=== PATIENT | male | born 1940 | race Caucasian/White ===

== ENCOUNTER 2017-03-29 10:03 | Observation (INO) | payer OTHER ==
[~2017-03-29] VITALS: Ht 182.9 cm; Wt 89.2 kg
[~2017-03-29 10:03] MED LIST: ASPEC81 PO; ATEN-173 PO; ATOR-24 PO; CHOLTAB3 PO; CLINDAMYCIN IV 600 MG in DEXTROSE 5% ADD-VANTAGE 50ML 50 ML IV SCH; CLTP PO; CMD5 PO; LSN25 PO; OMEG10007 PO; SYN50 PO; TRIA37.5 PO
[2017-03-29] MEDS ORDERED: BUPIVACAINE 0.5 % 5 MG/1 ML MPF 30ML VIAL ONE (10:05)
[2017-03-29] MEDS ORDERED: BACITRACIN 50000 UNIT VIAL ONE (10:05)
[2017-03-29] MEDS ORDERED: LIDOCAINE HCL 1% 20 ML VIAL ONE (10:05)
--- NOTE | 2017-03-29 10:22 | History & Physical Bridge Note ---
H&P Re-Evaluation Bridge Note: I have examined the patient, reviewed the History & Physical and in the interval since the performance of the History & Physical I have noted the following changes of clinical significance: HNP performed. Pt with TBS will get ppm.
--- NOTE | 2017-03-29 10:23 | Procedure Note ---
Pre-Mod Sedation Assessment General Date of Moderate Sedation: Mar 29, 2017. Review Cardiovascular: regular rate, rhythm, no edema, + bradycardia Abdomen: soft Lungs: lungs clear Airway Class: II Pre-Sedation Airway Assessment Oral Cavity: WNL Able to Visualize Vocal Cords: No Short Thick Neck: No Hx of Sleep Apnea: No Smoking Status: Former Smoker Mallampati Classification: Class II ASA Classification: Class II Procedure Planning Contraindications-for Mod Sed: None Yes Notes The planned sedation has been discussed with the patient and consent obtained. I have identified the patient, determined the appropriateness of sedation and have assessed the patient immediately prior to the procedure. All medicine(s) and interventions are by my order.
[2017-03-29] MEDS ORDERED: METO25TA3 PO (10:25)
[2017-03-29 10:30] LABS: MEAN CELL VOLUME 98.7 fL (80-100); MEAN CORPUSCULAR HEMOGLOBIN 34.2 pg (25-34); MEAN PLATELET VOLUME 10.3 fL (7.4-10.4); PLATELET COUNT 229 K/uL (130-400); RED BLOOD COUNT 4.76 M/uL (4.7-6.1); WHITE BLOOD COUNT 7.27 K/uL (4.8-10.8)
[2017-03-29 10:38] LABS: INR 1.2 (0.9-1.1); PROTHROMBIN TIME (PATIENT) 13.4 SECONDS (9.0-12.0)
[2017-03-29 10:42] VITALS: BP 163/104; PULSE 82; TEMP 36.3; O2SAT 97; BMI 26.0
--- NOTE | 2017-03-29 10:47 | History and Physical ---
History & Physical Date Mar 29, 2017. Chief Complaint 5 second pause History of Present Illness The patient is a 76 year old male with complaints of fatigue; he follows with Dr. Byrd in my office and recently wore a monitoring engineer which revealed 5 second pause in SR; he has TBS and was recommend ppm fortunately denies any syncope Past Medical/Surgical History paf on coumadin rbbb lafb tbs dvt and pe in past htn hypothyroidism Additional History Hepatic Disease: No Endocrine Disorder: Yes Kidney Disease: No Hypertension: Yes Heart Disease: Yes Bleeding Tendencies: No Infectious Diseases: No Allergies Coded Allergies: Penicillins (Verified Allergy, Unknown, "happened as a child, not sure of reaction", 03/29/17) Uncoded Allergies: PEROXID (Allergy, Severe, SEVERE RASH, 03/29/17) Home Medications Scheduled Aspirin Enteric Coated (Ecotrin Or Generic *), 81 MG PO QPM Atorvastatin (Lipitor), 40 MG PO QPM Calcium/Vitamin D (Caltrate 600 Plus *), 1 TAB PO QPM Ergocalciferol (Vitamin D), 400 INTER.UNIT PO QPM Levothyroxine (Synthroid *), 0.05 MG PO DAILY Lisinopril (Zestril *), 2.5 MG PO DAILY Metoprolol Succinate (Toprol Xl), 12.5 MG PO DAILY Warfarin Sod (Coumadin *), 5 MG PO WK Warfarin Sod (Coumadin *), 7.5 MG PO 6XWK Physical Examination Skin: warm/dry Eyes: EOMI, sclerae normal Head: normocephalic, atraumatic Neck: supple Respiratory/Chest: lungs clear, normal breath sounds Cardiovascular: regular rate, rhythm, no edema, no murmur Abdomen / GI: normal bowel sounds, non tender Back: normal inspection Extremities: + pertinent finding (trace to +1 edema) Neurologic/Psych: alert, oriented x 3 Diagnosis 1. TBS 2. pAF on coumadin 3. RBBB 4. LAFB 5. HTN 6. h/o DVT and PE 7. Hypothyroidism ASA Classification: ASA Class II Plan of Treatment Recommend dual chamber permanent pacemaker discussed risks and benefits with the patient after procedure would increase BB dose and consider anti-arrhythmic therapy if pt has more AF with RVR despite BB on ppm checks as outpatient
[2017-03-29 10:51] LABS: BLOOD UREA NITROGEN 21 mg/dl (7-18); BUN/CREATININE RATIO 16.1 (10-20); CALCIUM 9.2 mg/dl (8.5-10.1); CARBON DIOXIDE 29 mmol/L (21-32); CHLORIDE 106 mmol/L (98-107); GLUCOSE 121 mg/dl (70-99); POTASSIUM 4.4 mmol/L (3.5-5.1); SODIUM 138 mmol/L (136-145)
[2017-03-29] MEDS ORDERED: MIDAZOLAM HCL 5 MG/ML 1 ML VIAL ONE (11:02)
[2017-03-29] MEDS ORDERED: FENTANYL CITRATE INJ 50 MCG/1 ML 2 ML VIAL ONE (11:02)
[2017-03-29 11:07] LABS: MEAN CORPUSCULAR HGB CONC 34.7 g/dl (32-36)
[2017-03-29] MEDS ORDERED: ACETAMINOPHEN/CODEINE 300/30MG TAB PO PRN (12:45)
[2017-03-29] MEDS ORDERED: ACETAMINOPHEN 325 MG TAB PO PRN (12:45)
--- NOTE | 2017-03-29 12:49 | Procedure Note ---
Post-Mod Sedation Assessment General Date of Moderate Sedation Mar 29, 2017. Vital Signs: Vital Signs Past 12 Hours Date Time Temp Pulse Resp B/P (MAP) Pulse Ox O2 Delivery O2 Flow Rate FiO2 03/29/17 12:40 100 16 121/89 (100) 96 Room Air 03/29/17 12:35 100 16 125/90 (102) 96 Room Air 03/29/17 12:32 103 16 118/88 (98) 96 Room Air 03/29/17 10:42 36.3 82 18 163/104 (123) 97 Room Air Review - Discharge Criteria Vital Signs Stable: Yes Alert/Oriented/Conversant: Yes Returned to Baseline Mental St: Yes Nausea Absent/Minimal: Yes Pain/Discomfort/Absent/Minimal: Yes Normal/Baseline Respirations: Yes Active Bleeding?: No Pt Received D/C Instructions: N/A Prescriptions Given: None Specific Proced. D/C Criteria Distal Pulses Present (Cardiac: N/A Groin site assessed-Card Cath: N/A Voided Prior To Discharge: N/A Discharged Patients Adult Escort/Transportation: N/A
--- NOTE | 2017-03-29 12:50 | [facility] Post Operative Brief Note ---
Immediate Operative Summary Operative Date Mar 29, 2017. Pre-Operative Diagnosis tachy-don syndrome Post-Operative Diagnosis same Procedure(s) Performed dual chamber rate responsive pacemaker with peripheral venogram Surgeon wilver medina Stitching Department Supervisor Surgeon(s) none Estimated Blood Loss <10cc Findings none Fluids (cc crystalloids) 250cc Specimens none Drains none Anesthesia 4mg versed and 100mcg fentanyl Complication(s) None Disposition PCU
[2017-03-29] MEDS ORDERED: TPRSR25 PO (12:55)
--- NOTE | 2017-03-29 12:57 | Discharge Instructions ---
Discharge Instructions Date of Service Mar 29, 2017. 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 Instructions / Follow-Up Instructions / Follow-Up ACTIVITY RECOMMENDATIONS: * Do not raise affected arm over head for 4 weeks. SPECIAL CARE INSTRUCTIONS: * If bleeding occurs, apply direct pressure to area for 5 minutes. * Call your doctor if you have severe pain, fever, drainage or bleeding at site. * Keep dry for 48 hours. * Keep any scheduled doctor's appointment. * Implant Card - hand held device with website information given. SKIN IRRITATION: * You may experience some redness and/or swelling in the area where radiation was administered. If any skin irritation occurs, please contact your family physician. FOLLOW UP VISIT: Keep any scheduled doctor appointments. Current Hospital Diet Patient's current hospital diet: AHA Diet (Heart Healthy) Discharge Diet Recommended Diet: AHA Diet (Heart Healthy) Procedures Procedures Performed: dual chamber rate responsive pacemaker with peripheral venogram Pending Studies Studies pending at discharge: no Medical Emergencies . Who to Call and When: Medical Emergencies: If at any time you feel your situation is an emergency, please call 911 immediately. . Non-Emergent Contact Non-Emergency issues call your: Strategy Consultant . . "Provider Documentation" section prepared by Michelle Crowell. . VTE Core Measure Inpt VTE Proph given/why not?: Warfarin (Coumadin)
[2017-03-29 13:00] VITALS: BP 129/81; PULSE 88; TEMP 37; O2SAT 96; Ht 182.9 cm; Wt 89.2 kg
--- NOTE | 2017-03-29 13:01 | Discharge Summary ---
Discharge Summary Date of Service Mar 29, 2017. Discharge Summary Admission Date: Discharge Date: Mar 30, 2017 Discharge Disposition: Home Principal Diagnosis: tachy-don syndrome Secondary Diagnoses/Problems: pAF on coumadin RBBB LAFB HTN Hypothyroidism Procedures: dual chamber rate responsive permanent pacemaker under fluoroscopic guidance with peripheral venogram Medication Reconciliation New Medications: Metoprolol Succinate (Metoprolol Succinate ER) 25 Mg Tabcr 25 MG PO DAILY for 30 Days, #30 Continued Medications: Aspirin Enteric Coated (Ecotrin Or Generic *) 81 Mg Ectab 81 MG PO QPM, 0 Refills Atorvastatin (Lipitor) 40 Mg Tab 40 MG PO QPM, 0 Refills Calcium/Vitamin D (Caltrate 600 Plus *) Tab 1 TAB PO QPM, 0 Refills Ergocalciferol (Vitamin D) 400 Inter.unit Tab 400 INTER.UNIT PO QPM, 0 Refills Levothyroxine (Synthroid *) 0.05 Mg Tab 0.05 MG PO DAILY, 0 Refills Lisinopril (Zestril *) 2.5 Mg Tab 2.5 MG PO DAILY, 0 Refills Warfarin Sod (Coumadin *) 5 Mg Tab 5 MG PO WK, 0 Refills ON TUESDAY Warfarin Sod (Coumadin *) 5 Mg Tab 7.5 MG PO 6XWK, 0 Refills SAT,SUN,MON,,TH, FRI Discontinued Medications: Metoprolol Succinate (Toprol Xl) 25 Mg Tabcr 12.5 MG PO DAILY for 30 Days, #15 TAB 5 Refills Admission Information Physical Exam (per Admitting): aaox3, NAD NC/AT, EOMI Supple, No JVD Irregular, irregular S1/S2, no murmur CTA b/l w/r/r soft, NT/ND No edema b/l no focal deficit skin intact Hospital Course Pt admitted for elective permanent pacemaker due to tachy-don syndrome. Pt underwent procedure without any complications. Monitored overnight; his toprol was increased due to AF with RVR. Discharged home next morning in stable condition. Total time spent on discharge = This includes examination of the patient, discharge planning, medication reconciliation, and communication with other providers. Discharge Instructions ACTIVITY RECOMMENDATIONS: * Do not raise affected arm over head for 4 weeks. SPECIAL CARE INSTRUCTIONS: * If bleeding occurs, apply direct pressure to area for 5 minutes. * Call your doctor if you have severe pain, fever, drainage or bleeding at site. * Keep dry 48 hours. * Keep any scheduled doctor's appointment. * Implant Card - hand held device with website information given. SKIN IRRITATION: * You may experience some redness and/or swelling in the area where radiation was administered. If any skin irritation occurs, please contact your family physician. FOLLOW UP VISIT: Keep any scheduled doctor appointments.
[2017-03-29 13:07] VITALS: BP 136/84; PULSE 96; TEMP 37; O2SAT 96
[2017-03-29] MEDS ORDERED: IV FLUIDS COMPLETED PRN (13:45)
--- NOTE | 2017-03-29 13:52 | OPERATIVE REPORT ---
DATE OF OPERATION: 03/29/2017 PREOPERATIVE DIAGNOSIS: Tachybrady syndrome. POSTOPERATIVE DIAGNOSIS: Same. PROCEDURE: Dual chamber rate responsive permanent pacemaker under fluoroscopic guidance along with peripheral venogram. SURGEON: Dr. Michelle Crowell. ENTERPRISE SYSTEMS ARCHITECT: None. ANESTHESIA: Monitored conscious sedation administered under my supervision by Thanh Olson. Start time 11:35 a.m. End time 12:32. Total of 4 mg of Versed and 100 mcg of fentanyl. INTRAVENOUS FLUIDS: 250 mL. ESTIMATED BLOOD LOSS: Less than 10 mL. COMPLICATIONS: None. CONDITION: Stable. URINE OUTPUT: Not applicable. SPECIMENS: None. FINDINGS: See below. DRAINS: None. INDICATIONS: This is a 76-year-old gentleman who has a past medical history for paroxysmal atrial fibrillation on Coumadin and only a small dose of metoprolol, hypertension, hyperthyroidism, right bundle branch block, and left anterior fascicular block. He recently wore a Zio patch 2-week manager cardiac, which revealed evidence of tachybrady syndrome with a 5-second sinus pause. Unfortunately, he was not symptomatic. Due to the tachybrady syndrome, it was recommended a permanent pacemaker. CONSENT: Consent was obtained prior to the patient going into the electrophysiology lab. The patient was informed of risks, benefits and alternatives to the procedure. Risks include, but not limited to sudden cardiac , cardiac arrhythmias, cerebrovascular accident, myocardial infarction, injury to the blood vessels, chamber of the heart, lungs, bleeding and infection. The patient understood these risks and agreed to go ahead with the procedure as planned. Inform consent was obtained. DESCRIPTION OF THE PROCEDURE: The patient was brought into the electrophysiology lab in a fasting state. He was connected to continuous cardiac monitoring. A timeout was performed to ensure the patient's identity and procedure correctly. The patient received prophylactic antibiotics prior to incision. He was prepped and draped over the left infraclavicular space in normal surgical standard fashion. Moderate conscious sedation was given throughout the procedure for the patient's comfort level under my supervision. [place] precautions were maintained throughout the procedure. A 20 mL of 1% lidocaine/bupivacaine mixture were given in the left deltopectoral. Incision was made in left deltopectoral groove. Blunt dissection was performed down to identify the cephalic vein; however, none could not be identified. A peripheral venogram was performed to identify the axillary vein. A 10 mL of IV contrast diluted in 10 mL of saline followed by 20 mL flush was used. Venous access was obtained through the axillary stick without any complications. The guidewire was inserted without any resistance. An 8-Ghanaian sheath was inserted over the guidewire without any resistance. The dilator was removed and a second guidewire was then inserted through the sheath to allow for retained venous access. The sheath was flushed, dilator reinserted over and then, the sheath was inserted over one of the guidewires without any resistance. The guidewire and dilator were removed. The right ventricle pacing lead was then advanced into the right ventricle and positioned into the right ventricular apex under fluoroscopic guidance. There was adequate pacing and sensing thresholds and no diaphragmatic stimulation. The 8-Ghanaian sheath was peeled away and lead was fixated to the pectoralis muscle using 0 silk suture. A second 8-Ghanaian sheath was inserted over the retained guidewire without any resistance. The guidewire and dilator were removed. The right atrial pacing lead was then advanced into the right atrium and positioned into the right atrial appendage under fluoroscopic guidance. We did use the preformed J curve. The patient was in atrial fibrillation, so no threshold testing could be performed; however, there was adequate sensing and impedance. The sheath was peeled away and lead was fixated to the pectoralis muscle using 0 silk suture. A pacemaker pocket was created over the pectoralis muscle within the pectoralis fascia using blunt dissection. The pocket was flushed with copious amounts of bacitracin saline wash and inspected for hemostasis. The new pulse generator was attached to the leads, making sure that the pins were in appropriate position, passed the set screws and the set screws were all tightened. The pacemaker was then placed in the pocket, making sure that the leads were lying flat beneath the device. A stay stitch using 0 silk suture was used to secure the device to the pectoralis muscle. Maya stat was placed in the pocket since the patient is going back on Coumadin. The incision was closed in a 3-layer fashion using 2-0 Vicryl interrupted suture followed by a 3-0 Vicryl interrupted suture followed by a 4-0 Monocryl running stitch and Dermabond was applied. EQUIPMENT: 1. Pulse generator is a PingTunefinesse Leal [id number], serial #[id number]. 2. Right atrial lead, Medtronic 5076-52 cm, serial #[id number]. 3. Right ventricular lead, Medtronic 5076-58 cm, serial #[id number]. INTRAOPERATIVE TESTIN. Right atrial lead atrial fibrillation wave/atrial flutter wave 4.5 millivolts and impedance 621 ohms. Again, no threshold testing since the patient was in atrial flutter. 2. Right ventricular lead: R-wave 6.3 millivolts, impedance 1229 ohms, and threshold 0.7 volts at 0.7 milliamps. FINAL MEASUREMENTS THROUGH THE DEVICE: 1. Right atrial lead flutter wave 4.6 millivolts and impedance 551 ohms. Again, no threshold testing as the patient was in atrial flutter. 2. Right ventricular lead: R-wave 7 millivolts, impedance 874 ohms, threshold 0.5 volts at 0.4 milliseconds. FINAL PARAMETERS: 1. MVP-R 60/130. Right atrial amplitude 3.5 volts, pulse width 0.4 milliseconds, and sensitivity 0.3 milliseconds. 2. Right ventricular amplitude 3.5 volts, pulse width 0.4 milliseconds, and sensitivity 0.9 millivolts. IMPRESSION: Successful implantation of a dual chamber rate responsive permanent pacemaker secondary to tachybrady syndrome. PLAN: Monitor the patient overnight, 12-lead ECG, and chest x-ray. He cannot lift his left elbow over left shoulder for 1 month. He cannot lift more than 10 pounds with the left arm for 2 weeks. He can shower in 2 days. We will restart him on his Coumadin and we will increase his beta connie to 25 mg daily and most likely, he will need a higher dosing as an outpatient. We will monitor his AFib burden and flutter burden on the pacemaker check and may need to consider antiarrhythmic medicines. I attest to the content of the Intraoperative Record and any orders documented therein. Any exceptions are noted below. MTDD
[2017-03-29] MEDS: METOPROLOL SUCC 25MG EXT REL TAB PO SCH (15:17)
[2017-03-29] MEDS ORDERED: WARFARIN SOD 5 MG TAB PO SCH (16:00)
[2017-03-29 17:53] VITALS: BP 143/91; PULSE 81; TEMP 37; O2SAT 97
[2017-03-29 19:17] VITALS: BP 148/83; PULSE 56; TEMP 37; O2SAT 97
[2017-03-29] MEDS ORDERED: CHOLECALCIFEROL 400 INTER.UNIT TAB PO SCH (21:00)
[2017-03-29] MEDS ORDERED: ATORVASTATIN 20 MG TAB PO SCH (21:00)
[2017-03-29] MEDS ORDERED: ASPIRIN 81 MG ECTAB PO SCH (21:00)
[2017-03-29] MEDS ORDERED: CALCIUM 600MG + VIT D 400 IU TAB PO SCH (21:00)
[2017-03-29 23:54] VITALS: BP 135/78; PULSE 74; TEMP 36.9; O2SAT 96
[2017-03-30 04:09] VITALS: BP 127/83; PULSE 76; TEMP 36.8; O2SAT 97
[2017-03-30] MEDS ORDERED: LEVOTHYROXINE 50 MCG TAB PO SCH (06:00)
--- NOTE | 2017-03-30 06:37 | DIAGNOSTIC IMAGING REPORT ---
CHEST 2 VIEWS ROUTINE HISTORY: 76 years-old Male EXACT TIME ORDERED Evaluate for pneumothorax and lead placement COMPARISON: Chest radiographs 03/26/2007 TECHNIQUE: Frontal and lateral views of the chest FINDINGS: Cardiac silhouette is upper limits of normal. Left subclavian pacer device is present with leads overlying the right heart with leads appearing intact. No postprocedural pneumothorax is identified. No focal airspace consolidation or overt pulmonary edema. There is mild blunting of left costophrenic angle suggesting chronic scarring/atelectasis. The bones are osteopenic. IMPRESSION: Status post placement of a left subclavian pacer device with leads overlying the right atrial appendage and right ventricle. There is no postprocedural pneumothorax. The above report was generated using voice recognition software. It may contain grammatical, syntax or spelling errors. Electronically signed by: Zaire Wong M.D. 03/30/2017 6:35 AM Dictated Date/Time: 03/30/2017 6:34 AM
[2017-03-30 07:54] VITALS: BP 153/79; PULSE 87; TEMP 36.8; O2SAT 87
[2017-03-30 08:00] VITALS: O2SAT 95
[2017-03-30] MEDS: METOPROLOL SUCC 25MG EXT REL TAB PO SCH (08:25)
--- NOTE | 2017-03-30 08:34 | Cardiology Follow-Up ---
Subjective Subjective Date of Service: Mar 30, 2017. Pt evaluation today including: conversation w/ patient, physical exam, chart review, lab review, review of studies Pain: none Review of Systems Constitutional: No weakness, No fatigue Respiratory: No shortness of breath, No dyspnea on exertion Cardiac: No chest pain, No edema, No palpitations Abdomen: No nausea, No diarrhea Neurologic: No weakness Endo: No fatigue Objective Vital Signs Last Vital Signs Documentation Date Time Temp Pulse Resp B/P (MAP) Pulse Ox O2 Delivery O2 Flow Rate FiO2 03/30/17 07:54 36.8 87 18 153/79 (103) 87 03/30/17 04:09 Room Air Physical Exam: General Appearance: WD/WN, no apparent distress Eyes: bilateral eyes PERRL, bilateral eyes EOMI Neck: supple, no JVD Respiratory/Chest: lungs clear, normal breath sounds Cardiovascular: no JVD, no murmur, + irregularly irregular Abdomen: soft Extremities: no pedal edema Neurologic/Psychiatric: alert, oriented x 3 Skin: warm/dry (left pectoral incision intact; no hematoma no ecchymosis) Assessment and Plan Impression: 1. TBS s/p dual chamber ppm 03/29/2017 2. pAF on coumadin 3. HTN 4. RBBB 5. LAFB 6. Hypothyroidism Plan: Ok for discharge home today continue higher dose of toprol 25mg daily and we will further adjust rate control as outpatient and or consider anti-arrhythmic management do not lift left elbow over the left shoulder for 1 month; do not lift more than 10 pounds with the left arm for 2 weeks can shower f/u wound check as scheduled next week in our [facility] device [facility] Discharge planning: home Medications: Medications Administered Medications (Trade) Dose Ordered Sig/Guillermina Route Start Time Stop Time Status Last Admin Dose Admin Clindamycin Phosphate 600 mg/ Dextrose 50 ml @ 100 mls/hr PREOP IV 03/29/17 09:16 03/29/17 10:28 DC 03/29/17 11:15 100 MLS/HR Aspirin (Ecotrin Tab) 81 mg QPM PO 03/29/17 21:00 04/28/17 20:59 03/29/17 21:09 81 MG Atorvastatin Calcium (Lipitor Tab) 40 mg QPM PO 03/29/17 21:00 04/28/17 20:59 03/29/17 21:10 40 MG Calcium/Vitamin D (Caltrate Plus Tab) 1 tab QPM PO 03/29/17 21:00 04/28/17 20:59 03/29/17 21:09 1 TAB Cholecalciferol (Vitamin D Tab) 400 inter.unit QPM PO 03/29/17 21:00 04/28/17 20:59 03/29/17 21:10 400 INTER.UNIT Levothyroxine Sodium (Synthroid Tab) 50 mcg DAILYBB PO 03/30/17 06:00 04/29/17 05:59 03/30/17 05:50 50 MCG Lisinopril (Zestril Tab) 2.5 mg DAILY PO 03/30/17 09:00 04/29/17 08:59 03/30/17 08:25 2.5 MG Metoprolol Succinate (Toprol Xl Tab) 25 mg DAILY PO 03/29/17 13:00 04/28/17 12:59 03/30/17 08:25 25 MG Warfarin Sodium (Coumadin Tab) 5 mg DAILY@1600 PO 03/29/17 16:00 04/28/17 15:59 03/29/17 15:17 5 MG Lab Results: ECG: AF CXR: No PTX RA and RV leads in position PPM Check Today: RA: 4.8mV; 513 ohms no threshold as pt is in AF RV: 804mV; 722 ohms; 0.5V@0.4ms Last 24 Hours Test 03/29/17 10:19 White Blood Count 7.27 K/uL Red Blood Count 4.76 M/uL Hemoglobin 16.3 g/dL Hematocrit 47.0 % Mean Corpuscular Volume 98.7 fL Mean Corpuscular Hemoglobin 34.2 pg Mean Corpuscular Hemoglobin Concent 34.7 g/dl RDW Standard Deviation 50.4 fL RDW Coefficient of Variation 14.0 % Platelet Count 229 K/uL Mean Platelet Volume 10.3 fL Prothrombin Time 13.4 SECONDS Prothromb Time International Ratio 1.2 Sodium Level 138 mmol/L Potassium Level 4.4 mmol/L Chloride Level 106 mmol/L Carbon Dioxide Level 29 mmol/L Anion Gap 3.0 mmol/L Blood Urea Nitrogen 21 mg/dl Creatinine 1.30 mg/dl Estimated GFR () 61.9 Estimated GFR (Non- 53.4 BUN/Creatinine Ratio 16.1 Random Glucose 121 mg/dl Calcium Level 9.2 mg/dl
[2017-03-30] MEDS ORDERED: LISINOPRIL 2.5 MG TAB PO SCH (09:00)
[2017-03-30 09:16] VITALS: BP 153/79; PULSE 87; TEMP 36.8; O2SAT 95
== END 2017-03-30 09:50 | disposition home or self-care (01) ==
LOC: C.ACU 10:03 → ENRESERV 12:14 → C.2T 12:47
PROVIDERS: ADMIT Internal Medicine; ATTEND Internal Medicine
DX: I48.0 Paroxysmal atrial fibrillation (principal); I49.5 Sick sinus syndrome; I45.2 Bifascicular block; Z86.718 Personal history of other venous thrombosis and embolism; Z86.711 Personal history of pulmonary embolism; Z79.01 Long term (current) use of anticoagulants; I10 Essential (primary) hypertension; E03.9 Hypothyroidism, unspecified

== ENCOUNTER 2017-07-04 12:31 | Inpatient (IN) | payer OTHER ==
[~2017-07-04] VITALS: Ht 182.9 cm; Wt 94.9 kg
[~2017-07-04 12:31] MED LIST changes: -ASPEC81 PO; +ASPI81TA28 PO; -ATEN-173 PO; +CALCTAB7 PO; +CHOL100027 PO; -CHOLTAB3 PO; -CLINDAMYCIN IV 600 MG in DEXTROSE 5% ADD-VANTAGE 50ML 50 ML IV SCH; -CLTP PO; -CMD5 PO; +LEVO50TA PO; +LISI2.5T5 PO; -LSN25 PO; +METO50TA16 PO; -OMEG10007 PO; -SYN50 PO; -TRIA37.5 PO; +WARF5TAB7 PO
[2017-07-04] MEDS ORDERED: METR-163 PO (13:20)
[2017-07-04] MEDS ORDERED: SODIUM CHLORIDE 0.9% 1000ML 1,000 ML IV STA (13:37)
[2017-07-04 13:47] LABS: BASO % 0.1 %; BASO ABS # 0.02 K/uL (0-0.2); COMPLETE YES; HEMATOCRIT 42.7 % (42-52); IG% 0.6 %; LYMPH ABS # 0.88 K/uL (1.2-3.4); MEAN CELL VOLUME 96.8 fL (80-100); MEAN CORPUSCULAR HEMOGLOBIN 32.7 pg (25-34); MEAN CORPUSCULAR HGB CONC 33.7 g/dl (32-36); MEAN PLATELET VOLUME 11.4 fL (7.4-10.4); MONO % 7.9 %; NEUT % 86.4 %; PLATELET COUNT 213 K/uL (130-400); RED BLOOD COUNT 4.41 M/uL (4.7-6.1); WHITE BLOOD COUNT 17.52 K/uL (4.8-10.8)
--- NOTE | 2017-07-04 14:09 | DIAGNOSTIC IMAGING REPORT ---
CHEST ONE VIEW PORTABLE CLINICAL HISTORY: Altered mental status. Weakness. Shortness of breath. COMPARISON STUDY: Chest radiograph March 30, 2017. FINDINGS: A dual lead left subclavian pacemaker is unchanged in position. Mild cardiomegaly is unchanged and there is no evidence of pulmonary edema. No pneumothorax or pleural effusion is present. There is no consolidation to suggest pneumonia. The appearance of the chest is unchanged. IMPRESSION: No acute cardiopulmonary findings. Electronically signed by: Carlos Pepper M.D. 07/04/2017 2:07 PM Dictated Date/Time: 07/04/2017 2:07 PM
[2017-07-04 14:12] LABS: BUN/CREATININE RATIO 24.3 (10-20); CREATININE 2.4 mg/dl (0.60-1.40); MAGNESIUM 2.3 mg/dl (1.8-2.4)
[2017-07-04 14:21] LABS: CKMB/CK RATIO 1.3 (0-3.0); THYROID STIMULATING HORMONE 1.08 uIu/ml (0.300-4.500)
[2017-07-04 14:24] LABS: PARTIAL THROMBOPLASTIN RATIO 2.8
[2017-07-04 14:27] LABS: INR > 10.0 (0.9-1.1); PROTHROMBIN TIME (PATIENT) > 100.0 SECONDS (9.0-12.0)
[2017-07-04] MEDS ORDERED: PHYTONADIONE 5 MG TAB PO STA (15:04)
--- NOTE | 2017-07-04 15:25 | EMERGENCY ROOM VISIT NOTE ---
History Report prepared by Cristian: Josh Lao Under the Supervision of: Dr. Silverio Helton D.O. First contact with patient: 13:04 Chief Complaint: SHORTNESS OF BREATH Stated Complaint: SOB-RECENT PACEMAKER SURGERY Nursing Triage Summary: pt reports he has been called by pcp for bp and hr being up and down incionsistent. has hx of pacer not feeling it going off. denies any cp or sob. has dry cough. has hx of afib, has been in afib for 5+ days History of Present Illness The patient is a 76 year old male who presents to the Emergency Room with complaints of persistent abnormal blood pressure and abnormal heart rates for the past two weeks. The patient states that he had a pacemaker put in during March, and afterwards he was put on clindamycin, and he had an allergic reaction and was put on prednisone. Then, on June 01, the patient had a UTI and was put on cefdinir. One he was done, he was diagnosed with C Diff on the and was put on Flagyl. Since then, the patient has been having very irregular blood pressures, and it has been going very low, and he states that he has been in A-fib for the past 6-7 days which is unusual for him. He notes that his diarrhea from the C Diff has been improving. The patient additionally is complaining of nausea, a fever, chills, shaking, lack of appetite, and he feels mucous in his throat. He denies any swelling in his legs. The patient is currently on Coumadin for his A-fib. Source of History: patient Onset: two weeks ago Position: other (global) Quality: other (abnormal blood pressure and heart rate) Timing: other (persistent ) Associated Symptoms: + fevers, + chills, + nausea Note: Associated symptoms: shaking, lack of appetite, mucous in his throat. Review of Systems See HPI for pertinent positives & negatives. A total of 10 systems reviewed and were otherwise negative. Past Medical & Surgical Medical Problems: (1) Tachy-don syndrome Social History Smoking Status: Never Smoker Alcohol Use: occasionally Drug Use: none Marital Status: Housing Status: lives with family Occupation Status: retired Current/Historical Medications Scheduled Aspirin (Aspirin Ec), 81 MG PO DAILY Atorvastatin (Lipitor), 40 MG PO QPM Calcium Carbonate-Vitamin D W/ (Caltrate 600 Plus), 1 TAB PO DAILY Cholecalciferol (Vitamin D 1000 Unit), 1,000 INTER.UNIT PO DAILY Levothyroxine Sodium (Synthroid), 50 MCG PO DAILY Lisinopril (Lisinopril), 2.5 MG PO DAILY Metoprolol Tartrate (Lopressor) (Lopressor), 25 MG PO BID Metronidazole (Flagyl), 500 MG PO BID Warfarin Sod (Jantoven), 7.5 MG PO 6XWK Warfarin Sod (Jantoven), 5 MG PO WED Allergies Coded Allergies: Clindamycin (Verified Allergy, Unknown, UNKNOWN, 07/04/17) Penicillins (Verified Allergy, Unknown, "happened as a child, not sure of reaction", 07/04/17) Uncoded Allergies: PEROXID (Allergy, Severe, SEVERE RASH, 03/29/17) Physical Exam Vital Signs Date Time Temp Pulse Resp B/P (MAP) Pulse Ox O2 Delivery O2 Flow Rate FiO2 07/04/17 14:31 100 26 98 07/04/17 14:30 113/75 07/04/17 14:01 104 17 91/57 96 07/04/17 13:31 103 17 97/62 96 07/04/17 13:01 119 19 07/04/17 12:59 106 07/04/17 12:41 36.8 85 18 82/58 95 Room Air Physical Exam CONSTITUTIONAL/VITAL SIGNS: Reviewed / noted above. GENERAL: Non-toxic in appearance. INTEGUMENTARY: Warm, dry, and [place]. HEAD: Normocephalic. EYES: without scleral icterus or trauma. ENT/OROPHARYNX: clear and moist. LYMPHADENOPATHY/NECK: Is supple without lymphadenopathy or meningismus. RESPIRATORY: Lungs clear and equal. CARDIOVASCULAR: Regular rate and rhythm. GI/ABDOMEN: Soft and nontender. No organomegaly or pulsatile mass. No rebound or guarding. Normal bowel sounds. EXTREMITIES: Warm and well perfused. BACK: No CVA tenderness. NEUROLOGICAL: Intact without focal deficits. PSYCHIATRIC: normal affect. MUSCULOSKELETAL: Normally developed with good muscle tone. Medical Decision & Procedures ER Provider Diagnostic Interpretation: Radiology results as stated below per my review and radiologist interpretation: CHEST ONE VIEW PORTABLE CLINICAL HISTORY: Altered mental status. Weakness. Shortness of breath. COMPARISON STUDY: Chest radiograph March 30, 2017. FINDINGS: A dual lead left subclavian pacemaker is unchanged in position. Mild cardiomegaly is unchanged and there is no evidence of pulmonary edema. No pneumothorax or pleural effusion is present. There is no consolidation to suggest pneumonia. The appearance of the chest is unchanged. IMPRESSION: No acute cardiopulmonary findings. Electronically signed by: Carlos Pepper M.D. 07/04/2017 2:07 PM Dictated Date/Time: 07/04/2017 2:07 PM Laboratory Results 07/04/17 13:30 Red Blood Count 4.41, Mean Corpuscular Volume 96.8, Mean Corpuscular Hemoglobin 32.7, Mean Corpuscular Hemoglobin Concent 33.7, Mean Platelet Volume 11.4, Neutrophils (%) (Auto) 86.4, Lymphocytes (%) (Auto) 5.0, Monocytes (%) (Auto) 7.9, Eosinophils (%) (Auto) 0.0, Basophils (%) (Auto) 0.1, Neutrophils # (Auto) 15.13, Lymphocytes # (Auto) 0.88, Monocytes # (Auto) 1.39, Eosinophils # (Auto) 0.00, Basophils # (Auto) 0.02 07/04/17 13:30 Test 07/04/17 13:30 White Blood Count 17.52 K/uL (4.8-10.8) Red Blood Count 4.41 M/uL (4.7-6.1) Hemoglobin 14.4 g/dL (14.0-18.0) Hematocrit 42.7 % (42-52) Mean Corpuscular Volume 96.8 fL (80-100) Mean Corpuscular Hemoglobin 32.7 pg (25-34) Mean Corpuscular Hemoglobin Concent 33.7 g/dl (32-36) Platelet Count 213 K/uL (130-400) Mean Platelet Volume 11.4 fL (7.4-10.4) Neutrophils (%) (Auto) 86.4 % Lymphocytes (%) (Auto) 5.0 % Monocytes (%) (Auto) 7.9 % Eosinophils (%) (Auto) 0.0 % Basophils (%) (Auto) 0.1 % Neutrophils # (Auto) 15.13 K/uL (1.4-6.5) Lymphocytes # (Auto) 0.88 K/uL (1.2-3.4) Monocytes # (Auto) 1.39 K/uL (0.11-0.59) Eosinophils # (Auto) 0.00 K/uL (0-0.5) Basophils # (Auto) 0.02 K/uL (0-0.2) RDW Standard Deviation 53.1 fL (36.4-46.3) RDW Coefficient of Variation 15.0 % (11.5-14.5) Immature Granulocyte % (Auto) 0.6 % Immature Granulocyte # (Auto) 0.10 K/uL (0.00-0.02) Prothrombin Time > 100.0 SECONDS Prothromb Time International Ratio > 10.0 (0.9-1.1) Activated Partial Thromboplast Time 73.8 SECONDS (21.0-31.0) Partial Thromboplastin Ratio 2.8 Anion Gap 10.0 mmol/L (3-11) Est Creatinine Clear Calc Drug Dose 29.2 ml/min Estimated GFR () 29.5 Estimated GFR (Non- 25.4 BUN/Creatinine Ratio 24.3 (10-20) Calcium Level 9.0 mg/dl (8.5-10.1) Magnesium Level 2.3 mg/dl (1.8-2.4) Total Bilirubin 0.5 mg/dl (0.2-1) Direct Bilirubin 0.2 mg/dl (0-0.2) Aspartate Amino Transf (AST/SGOT) 155 U/L (15-37) Alanine Aminotransferase (ALT/SGPT) 83 U/L (12-78) Alkaline Phosphatase 147 U/L (45-117) Total Creatine Kinase 46 U/L (39-308) Creatine Kinase MB 0.6 ng/ml (0.5-3.6) Creatine Kinase MB Ratio 1.3 (0-3.0) Troponin I 0.024 ng/ml (0-0.045) Total Protein 6.5 gm/dl (6.4-8.2) Albumin 2.2 gm/dl (3.4-5.0) Lipase 104 U/L (73-393) Thyroid Stimulating Hormone (TSH) 1.080 uIu/ml (0.300-4.500) Laboratory results as stated above per my review. Medications Administered Medications (Trade) Dose Ordered Sig/Guillermina Route Start Time Stop Time Status Last Admin Dose Admin Sodium Chloride 1,000 ml @ 999 mls/hr Q1H1M STAT IV 07/04/17 13:37 07/04/17 14:37 DC 07/04/17 13:37 999 MLS/HR ECG Indication: other (irregular heart rate and bood pressure) Rate (beats per minute): 115 Rhythm: atrial fibrillation Findings: RBBB, other (No acute injury) ED Course 1304: Previous medical records were reviewed. The patient was evaluated in room B7. A complete history and physical examination was performed. 1337: Sodium Chloride 1000 ml @ 999 mls/hr IV 1504: Mephy[place] Tab 2.5mg PO 1506: I reevaluated the patient, and I discussed the treatment plan with the patient and his . They were agreeable. 1511: Discussed the patient's case with Rosalee Spring. The patient will be evaluated for further treatment and disposition. Medical Decision Differential includes acute coronary syndrome, myocardial infarction, CVA, TIA, anemia, infection, pneumonia, UTI, pyelonephritis, poor nutrition, dehydration, electrolyte disturbance,hypoglycemia. This is a 76-year-old male who presents to the ED with a chief complaint of generalized weakness and decreased blood pressure. The patient recently was on Cefdinir on June 01 for UTI and then clindamycin prior to that after having a pacemaker placed in March. The patient developed symptoms of C. difficile and was tested positive for C. difficile and started on Flagyl June 21. He completed the course yesterday. The patient has not had much of an appetite and is all intake is been decreased over that period of time. His diarrhea has improved. He reports low blood pressures at home. His states that one of his blood pressure was in the 60s over 40s. 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 His initial blood pressure here was 82/58. Heart rate is 106. Physical exam was relatively unremarkable. White blood cell count was 17.5, INR was greater than 10, BUN is 58 and creatinine is 2.4. Baseline creatinine is 1.4. Chest x-ray was negative for acute disease. The patient was treated with oral vitamin K 2.5 mg and given oral as well as IV fluids 1 L normal saline. He was told results the test. I spoke with the hospitalist, who requested lactic acid level and blood cultures. The patient will be seen by the hospitalist for further medication evaluation and care. Medication Reconcilliation Current Medication List: was personally reviewed by me Blood Pressure Screening Patient's blood pressure: Low blood pressure Managed by the hospitalist Consults Time Called: 1505 Consulting Physician: Rosalee Spring Returned Call: [id number] Discussed the patient's case with Rosalee Spring. The patient will be evaluated for further treatment and disposition. Impression Primary Impression: Acute renal failure Additional Impressions: Dehydration Elevated INR C. difficile colitis Scribe Attestation The scribe's documentation has been prepared under my direction and personally reviewed by me in its entirety. I confirm that the note above accurately reflects all work, treatment, procedures, and medical decision making performed by me. Departure Information Dispostion Being Evaluated By Hospitalist Referrals Cruz Norris M.D. (PCP) Patient Instructions My [facility] Problem Qualifiers
[2017-07-04 16:23] LABS: URINE APPEARANCE TURBID (CLEAR); URINE BILIRUBIN NEG (NEG); URINE COLOR ORANGE; URINE NITRITE POS (NEG); UROBILINOGEN NEG (NEG); ZZUR CULT IF INDIC CLEAN CATCH YES
[2017-07-04 16:26] LABS: MANUAL MICROSCOPIC REQUIRED? NO; REVIEW REQ? YES
[2017-07-04] MEDS ORDERED: ACETAMINOPHEN 325 MG TAB PO PRN (16:30)
--- NOTE | 2017-07-04 16:37 | DIAGNOSTIC IMAGING REPORT ---
CT SCAN OF THE ABDOMEN AND PELVIS WITHOUT CONTRAST CLINICAL HISTORY: Fever. History of C. difficile. COMPARISON STUDY: No previous studies for comparison. TECHNIQUE: CT scan of the abdomen and pelvis was performed from the lung bases to the proximal femurs. Images are reviewed in the axial, sagittal, and coronal planes. IV contrast was not administered for this examination. A dose lowering technique was utilized adhering to the principles of ALARA. CT DOSE: 801.35 mGycm FINDINGS: Lower chest: Is a 17 mm right lower lobe lung cyst. Intracardiac pacemaker is visualized. There is a small hiatal hernia with mild distal esophageal wall thickening. There is a small pericardial effusion. Liver: There is a nonspecific 7 mm right lobe hypodensity. Gallbladder: Unremarkable. Spleen: Normal in size and attenuation. Pancreas: Unremarkable. Adrenal glands: Unremarkable. Kidneys: There is bilateral perinephric stranding. There is a 14 mm upper pole left renal hypodense lesion likely representing a cyst. There is a 6.6 cm left renal cyst. No renal calculi are visualized. No ureteral or bladder calculi are visualized. Bowel: There are no transition zones indicate bowel obstruction. There is colonic diverticulosis. There are no acute peridiverticular inflammatory changes. The appendix appears normal. There is submucosal fat hypertrophy. There is a nonspecific 17 mm calcified mesenteric nodule adjacent to the cecum. This a nonspecific finding, which could be secondary to a carcinoid tumor, or postinflammatory calcification. Peritoneum: There is no intraperitoneal free air or abdominal ascites. There is a small fat-containing right inguinal hernia. Vasculature: There is no evidence of aneurysm. Atherosclerotic calcifications are visualized. Adenopathy: There is enlarged left paraaortic lymph node just below the level the renal hilum measuring 13 mm. Pelvic viscera: The prostate is enlarged. Skeletal structures: There is bilateral L5 spondylolysis. No destructive lesions are visualized. IMPRESSION: 1. No evidence of bowel obstruction. No evidence of free air 2. Normal appendix. Diverticulosis. No evidence of acute diverticulitis 3. Submucosal fat hypertrophy within the cecum. No evidence of significant active colitis on this noncontrast study 4. 6.6 cm left renal cyst. No renal or ureteral calculi identified. Bilateral perinephric stranding. 5. 17 mm calcified mesenteric nodule adjacent to the cecum. This a nonspecific finding which likely is secondary to either a carcinoid tumor or postinflammatory calcification 6. Mildly enlarged left paraaortic lymph node. 7. Mild prostamegaly 8. Nonspecific 7 mm hypodensity within the right hepatic lobe Electronically signed by: Bienvenido Robles M.D. 07/04/2017 4:36 PM Dictated Date/Time: 07/04/2017 4:21 PM
[2017-07-04] MEDS ORDERED: DAPTOmycin IV 500 MG in SODIUM CHLORIDE 0.9% 50ML 50 ML IV SCH (16:45)
[2017-07-04 17:23] VITALS: BP 104/64; PULSE 90; O2SAT 95
[2017-07-04] MEDS ORDERED: AZTREONAM IV 2,000 MG in DEXTROSE 5% 100ML 100 ML IV ONE (18:00)
[2017-07-04] MEDS ORDERED: AZTREONAM IV 2,000 MG in DEXTROSE 5% 100ML 100 ML IV SCH (18:00)
[2017-07-04] MEDS: SODIUM CHLORIDE 0.9% 1000ML 1,000 ML IV SCH (18:58)
[2017-07-04 19:00] VITALS: BP 117/82; PULSE 105; TEMP 37.4; O2SAT 96
--- NOTE | 2017-07-04 19:24 | History and Physical ---
History & Physical Date & Time of Service: Jul 04, 2017 at 17:05 Chief Complaint: Sob-Recent Pacemaker Surgery Primary Care Physician: Cruz Norris M.D. History of Present Illness Source: patient, spouse Pt is 76 y/o M with PMH a-fib, HTN, hyperlipidemia, hypothyroidism presented to ER with c/o weakness, fever x 1 week. Pt reports hx pacer placed 03/2017 and states was placed on clindamycin and had reaction and took prednisone. Reports hx UTI 06/01/17 and was placed on cefdinir. Pt then reports onset diarrhea and placed on flagyl x 14 days on 06/21/17 and finished course yesterday. He states diarrhea has resolved. Had soft BM this morning. States was taking coumadin 5mg daily instead of 7.5mg daily since was on flagyl. Pt reports for past week with fevers, highest 104F 3 days ago. Has been taking Tylenol for fever which brings down then fever returns. Last dose Tylenol last night. Also reports feeling generalized weakness and felt winded with exertion x 1 week and chills and sweats. C/O poor appetite past week and intermittent nausea several days ago. Denies any nausea currently. Denies vomiting. Pt reports taking BP at home and 2 days ago BP's 73/48 and 69/56, other days BP low 100s systolic. Past week feels like heart flutters and noted pulse to be low 100's. States couple weeks ago UR symptoms which have since resolved. Denies vomiting, melena, hematochezia , CARVALHO, syncope, vision changes, neck pain, CP, orthopnea, choking, otalgia, abdominal pain, paresthesias, extremity edema, rashes, dysuria, hematuria. In ER pt given 1L NSS. WBC: 17.5. CR: 2.4 (1.25 baseline). INR>10 and was given 2.5mg Vit K. Pending lactic acid. Pending CT abd/pelvix, U/A. pending blood cultures. Negative CXR. Past Medical/Surgical History Medical Problems: (1) Atrial fibrillation Status: Chronic (2) Dyslipidemia Status: Chronic (3) History of rectal abscess Permanent Comment: 1983, perirectal abscess I&D, fissure Status: Resolved (4) HTN (hypertension) Status: Chronic (5) Hx pulmonary embolism Status: Resolved (6) Hypothyroidism Status: Chronic (7) Vitamin D deficiency Status: Chronic Surgical Problems: (1) History of tonsillectomy and adenoidectomy Status: Resolved (2) Hx of colonoscopy Permanent Comment: 10/19/2007 - benign neoplasm of colon, hyperplastic, repeat recommended 10 years Status: Resolved Family History Diabetes mellitus MOTHER BROTHER FH: cancer FATHER (possible liver CA) GRANDMOTHER (possible lung CA) Hypertension FATHER Stroke GRANDMOTHER Social History Smoking Status: Former Smoker (quit 1982, smoked 1.5ppd x 20 years) Smokeless Tobacco Use: No Alcohol Use: socially Drug Use: none Marital Status: Housing status: lives with significant other Occupational Status: retired Immunizations History of Influenza Vaccine: No History of Tetanus Vaccine?: Yes Tetanus Immunization Date: Mar 26, 2004 History of Pneumococcal: Yes Pneumococcal Date: Mar 26, 2004 History of Hepatitis B Vaccine: No Allergies Coded Allergies: Clindamycin (Verified Allergy, Unknown, UNKNOWN, 07/04/17) Penicillins (Verified Allergy, Unknown, "happened as a child, not sure of reaction", 07/04/17) Uncoded Allergies: PEROXID (Allergy, Severe, SEVERE RASH, 03/29/17) Home Medications Scheduled Aspirin (Aspirin Ec), 81 MG PO DAILY Atorvastatin (Lipitor), 40 MG PO QPM Calcium Carbonate-Vitamin D W/ (Caltrate 600 Plus), 1 TAB PO DAILY Cholecalciferol (Vitamin D 1000 Unit), 1,000 INTER.UNIT PO DAILY Levothyroxine Sodium (Synthroid), 50 MCG PO DAILY Lisinopril (Lisinopril), 2.5 MG PO DAILY Metoprolol Tartrate (Lopressor) (Lopressor), 25 MG PO BID Metronidazole (Flagyl), 500 MG PO BID Warfarin Sod (Jantoven), 7.5 MG PO [id number] Warfarin Sod (Jantoven), 5 MG PO WED Review of Systems Constitutional: + fever, + chills, + sweats, + weakness, + problem reported ( see HPI), No weight loss Eyes: No eye pain, No redness, No discharge, No diplopia ENT: No unusual epistaxis, No nasal symptoms, No sore throat, No tinnitus, No trouble swallowing Respiratory: No cough, No sputum, No wheezing, No dyspnea at rest, No hemoptysis Cardiovascular: No chest pain, No orthopnea, No PND, No edema Abdomen: + nausea, + diarrhea, + constipation, + problem reported (see HPI), No pain, No vomiting, No GI bleeding Musculoskeletal: No joint pain, No muscle pain, No swelling, No calf pain Genitourinary - Male: No hematuria, No dysuria, No urinary frequency, No urinary urgency Neurologic: No paralysis, No weakness, No numbness/tingling, No vertigo Psychiatric: No depression symptoms, No anxiety Hematologic / Lymphatic: No abnormal bleeding/bruising Integumentary: No rash, No itch Physical Exam Vital Signs Date Time Temp Pulse Resp B/P (MAP) Pulse Ox O2 Delivery O2 Flow Rate FiO2 07/04/17 16:52 101 14 118/77 99 07/04/17 16:01 106/75 07/04/17 14:31 100 26 98 07/04/17 14:30 113/75 07/04/17 14:01 104 17 91/57 96 07/04/17 13:31 103 17 97/62 96 07/04/17 13:01 119 19 07/04/17 12:59 106 07/04/17 12:41 36.8 85 18 82/58 95 Room Air General Appearance: no apparent distress, + pertinent finding (ill appearing, but non-toxic appearance) Head: normocephalic, atraumatic Eyes: normal inspection, PERRL, EOMI, sclerae normal ENT: hearing grossly normal, pharynx normal, + pertinent finding (dry mucous membranes) Neck: supple, no JVD, trachea midline Respiratory/Chest: chest non-tender, lungs clear, normal breath sounds, no respiratory distress, no accessory muscle use Cardiovascular: no edema, no murmur, normal peripheral pulses, + irregularly irregular Abdomen/GI: normal bowel sounds, non tender, soft Back: no CVA tenderness Extremities/Musculoskelatal: no calf tenderness, normal capillary refill, no pedal edema, normal range of motion, non-tender Neurologic/Psych: alert, normal mood/affect, oriented x 3 Skin: normal color, warm/dry, no rash Diagnostics Laboratory Results Results Past 24 Hours Test 07/04/17 13:30 07/04/17 15:43 Range/Units White Blood Count 17.52 4.8-10.8 K/uL Red Blood Count 4.41 4.7-6.1 M/uL Hemoglobin 14.4 14.0-18.0 g/dL Hematocrit 42.7 42-52 % Mean Corpuscular Volume 96.8 80-100 fL Mean Corpuscular Hemoglobin 32.7 25-34 pg Mean Corpuscular Hemoglobin Concent 33.7 32-36 g/dl Platelet Count 213 130-400 K/uL Mean Platelet Volume 11.4 7.4-10.4 fL Neutrophils (%) (Auto) 86.4 % Lymphocytes (%) (Auto) 5.0 % Monocytes (%) (Auto) 7.9 % Eosinophils (%) (Auto) 0.0 % Basophils (%) (Auto) 0.1 % Neutrophils # (Auto) 15.13 1.4-6.5 K/uL Lymphocytes # (Auto) 0.88 1.2-3.4 K/uL Monocytes # (Auto) 1.39 0.11-0.59 K/uL Eosinophils # (Auto) 0.00 0-0.5 K/uL Basophils # (Auto) 0.02 0-0.2 K/uL RDW Standard Deviation 53.1 36.4-46.3 fL RDW Coefficient of Variation 15.0 11.5-14.5 % Immature Granulocyte % (Auto) 0.6 % Immature Granulocyte # (Auto) 0.10 0.00-0.02 K/uL Prothrombin Time > 100.0 9.0-12.0 SECONDS Prothromb Time International Ratio > 10.0 0.9-1.1 Activated Partial Thromboplast Time 73.8 21.0-31.0 SECONDS Partial Thromboplastin Ratio 2.8 Sodium Level 136 136-145 mmol/L Potassium Level 4.0 3.5-5.1 mmol/L Chloride Level 103 98-107 mmol/L Carbon Dioxide Level 23 21-32 mmol/L Anion Gap 10.0 3-11 mmol/L Blood Urea Nitrogen 58 7-18 mg/dl Creatinine 2.40 0.60-1.40 mg/dl Est Creatinine Clear Calc Drug Dose 29.2 ml/min Estimated GFR () 29.5 Estimated GFR (Non- 25.4 BUN/Creatinine Ratio 24.3 10-20 Random Glucose 192 70-99 mg/dl Calcium Level 9.0 8.5-10.1 mg/dl Magnesium Level 2.3 1.8-2.4 mg/dl Total Bilirubin 0.5 0.2-1 mg/dl Direct Bilirubin 0.2 0-0.2 mg/dl Aspartate Amino Transf (AST/SGOT) 155 15-37 U/L Alanine Aminotransferase (ALT/SGPT) 83 12-78 U/L Alkaline Phosphatase 147 45-117 U/L Total Creatine Kinase 46 39-308 U/L Creatine Kinase MB 0.6 0.5-3.6 ng/ml Creatine Kinase MB Ratio 1.3 0-3.0 Troponin I 0.024 0-0.045 ng/ml Total Protein 6.5 6.4-8.2 gm/dl Albumin 2.2 3.4-5.0 gm/dl Lipase 104 73-393 U/L Thyroid Stimulating Hormone (TSH) 1.080 0.300-4.500 uIu/ml Urine Color ORANGE Urine Appearance TURBID CLEAR Urine pH 5.0 4.5-7.5 Urine Specific [place] 1.020 1.000-1.030 Urine Protein 2+ NEG Urine Glucose (UA) NEG NEG Urine Ketones NEG NEG Urine Occult Blood 3+ NEG Urine Nitrite POS NEG Urine Bilirubin NEG NEG Urine Urobilinogen NEG NEG Urine Leukocyte Esterase LARGE NEG Urine WBC (Auto) >30 0-5 /hpf Urine RBC (Auto) >30 0-4 /hpf Urine Hyaline Casts (Auto) 1-5 0-5 /lpf Urine Epithelial Cells (Auto) 10-20 0-5 /lpf Urine Bacteria (Auto) 4+ NEG Urine Yeast (Auto) NONE PRSENT Microbiology Results 07/04/17 Blood Culture, Received Pending 07/04/17 Blood Culture, Received Pending 07/04/17 Urine Culture, Received Pending Diagnostic Radiology CXR IMPRESSION: No acute cardiopulmonary findings. CT ABD/PELVIS: IMPRESSION: 1. No evidence of bowel obstruction. No evidence of free air 2. Normal appendix. Diverticulosis. No evidence of acute diverticulitis 3. Submucosal fat hypertrophy within the cecum. No evidence of significant active colitis on this noncontrast study 4. 6.6 cm left renal cyst. No renal or ureteral calculi identified. Bilateral perinephric stranding. 5. 17 mm calcified mesenteric nodule adjacent to the cecum. This a nonspecific finding which likely is secondary to either a carcinoid tumor or postinflammatory calcification 6. Mildly enlarged left paraaortic lymph node. 7. Mild prostamegaly 8. Nonspecific 7 mm hypodensity within the right hepatic lobe EKG EKG Poor data quality, interpretation may be adversely affected Atrial flutter with variable A-V block Right bundle branch block Left anterior fascicular block Bifascicular block Abnormal ECG When compared with ECG of 29-MAR-2017 14:11, No significant change Confirmed by CRISTINA GLOVER ([id number]) on 07/04/2017 1:54:06 PM Impression Assessment and Plan SEPSIS SECONDARY TO UTI WBC: 17, hx fever >38C x 1 week, P: low 100's. BP initially 82/58 increased to 113/75 after 1L NSS in ER with improvement of hypotension Negative CXR. Recent hx c-diff finished 14 day course oral flagyl and reports resolution diarrhea. Denies abdominal pain/hematochezia. Pt with dehydration. No CVA tenderness on exam today. Pt reports feels improved after IV fluids in ER. CT abd/pelvis: 1. No evidence of bowel obstruction. No evidence of free air. 2. Normal appendix. Diverticulosis. No evidence of acute diverticulitis. 3. No evidence of significant active colitis on this noncontrast study. 4. 6.6 cm left renal cyst. No renal or ureteral calculi identified. Bilateral perinephric stranding. 5. 17 mm calcified mesenteric nodule adjacent to the cecum. This a nonspecific finding which likely is secondary to either a carcinoid tumor or postinflammatory calcification. 6. Mildly enlarged left paraaortic lymph node. 7. Mild prostamegaly. 8. Nonspecific 7 mm hypodensity within the right hepatic lobe. -initially decided to started on empiric abx - daptomycin & aztreonam. However UA results positive so will start Rocephin IV to treat UTI -pending blood cultures -pending procalcitonin -pending lactic acid -pending influenza swab -repeat cbc, cmp in am KRISTOPHER Cr 2.4, (06/01/17 - 1.25) Suspect dehydration. no kidney stone noted on CT scan -continue NSS IV -repeat cmp in am -try to avoid nephrotoxic agents when able SUPRA THERAPEUTIC INR INR>10. No active bleeding. Pt given 2.5mg vitamin K in ER -hold coumadin -INR in am A-FIB Hx a-fib on Coumadin, metoprolol. initially 119 now down to 90 after IV fluids. Suspect infection/dehydration -holding coumadin as supra therapeutic -continue metoprolol -repeat EKG in am, or prn CP -cardiology consult HYPOTHYROIDISM TSH: 1.08 -continue levothyroxine HYPERLIPIDEMIA -continue Lipitor MESENTERIC NODULE CT abd/pelvis 17 mm calcified mesenteric nodule adjacent to the cecum. This a nonspecific finding which likely is secondary to either a carcinoid tumor or postinflammatory calcification. -will need further workup HX RECENT C-DIFF completed 14 day course oral flagyl yesterday. Pt reports resolution diarrhea DVT PROPHYLAXIS -coumadin - pt supratherapeutic currently DISPOSITION -admit tele -Full Code as per discussion with pt -Follows with Dr Norris for routine care Pt was seen with Dr Whitman. See addendum ADDENDUM: I have seen and examined the patient and agree with the findings as above. Will cont with vanco PO while on new abx course. Prostate exam tonight was normal and not concerning for prostatitis, however, patient may require a longer abx course this time as symptoms persisted despite cefdinir x 10 days. Exam is otherwise unremarkable aside from some facial flushing that is present. As noted above, lesion seen on CT will require further attention/workup. J Carlos, DO Level of Care Telemetry Resuscitation Status FULL RESUSCITATION VTE Prophylaxis VTE Risk Assessment Done? Y/N: Yes Risk Level: Moderate Given or contraindicated: Warfarin (Coumadin) (pt supratherapeutic at this time ) Additional Copies To Cruz Norris M.D.
[2017-07-04] MEDS: CEFTRIAXONE SOD INJ 1 GM in DEXTROSE 5% ADD-VANTAGE 50ML 50 ML IV SCH (19:35)
[2017-07-04 19:53] VITALS: BP 104/64; PULSE 90; TEMP 36.8; O2SAT 95; Ht 182.9 cm; Wt 94.9 kg
[2017-07-04 20:00] VITALS: O2SAT 95
[2017-07-04 20:24] LABS: CKMB/CK RATIO 2.3 (0-3.0)
[2017-07-04] MEDS: METOPROLOL TARTRATE 25 MG TAB PO SCH (20:36)
[2017-07-04] MEDS: ATORVASTATIN 40 MG TAB PO SCH (20:36)
[2017-07-04] MEDS: VANCOMYCIN HCL 125 MG/2.5ML SOLN PO SCH (21:25)
[2017-07-04] MEDS: RASPBERRY SYRUP 5 ML UDP PO SCH (21:25)
[2017-07-05] VITALS (9 sets, daily range): BP systolic 92–134; BP diastolic 76–92; PULSE 86–109; TEMP 36.8–37.9; O2SAT 94–99
[2017-07-05 01:48] LABS: INFLUENZA A PCR Neg for Influ A (NEG); INFLUENZA B PCR POS for Influ B (NEG)
[2017-07-05] MEDS ORDERED: AZTREONAM IV 1,000 MG in DEXTROSE 5% 100ML 100 ML IV SCH (02:00)
[2017-07-05] MEDS ORDERED: OSELTAMIVIR PHOSPHATE SUSP 30 MG/5 ML UDP PO ONE (02:15)
[2017-07-05] MEDS ORDERED: INFLUENZA ADMINISTRATION CHARGE ONE (05:00)
[2017-07-05] MEDS ORDERED: INFLUENZA VACCINE HIGH DOSE 65+ 0.5 ML SYR IM. ONE (05:00)
[2017-07-05] MEDS: SODIUM CHLORIDE 0.9% 1000ML 1,000 ML IV SCH ×3 (05:44→21:00)
[2017-07-05] MEDS: LEVOTHYROXINE 50 MCG TAB PO SCH (05:45)
[2017-07-05 06:48] LABS: BASO % 0.1 %; BASO ABS # 0.01 K/uL (0-0.2); COMPLETE YES; EOS % 0.1 %; HEMATOCRIT 39.6 % (42-52); IG% 0.6 %; LYMPH ABS # 0.63 K/uL (1.2-3.4); MEAN CELL VOLUME 97.1 fL (80-100); MEAN CORPUSCULAR HEMOGLOBIN 32.8 pg (25-34); MEAN CORPUSCULAR HGB CONC 33.8 g/dl (32-36); MEAN PLATELET VOLUME 11.1 fL (7.4-10.4); MONO % 10.5 %; NEUT % 84.7 %; PLATELET COUNT 206 K/uL (130-400); RED BLOOD COUNT 4.08 M/uL (4.7-6.1)
[2017-07-05 07:15] LABS: ALB/GLOB RATIO 0.5 (0.9-2); BUN/CREATININE RATIO 30.3 (10-20); CALCIUM 8.4 mg/dl (8.5-10.1); CREATININE 1.85 mg/dl (0.60-1.40); POTASSIUM 4.2 mmol/L (3.5-5.1)
[2017-07-05 07:26] LABS: INR > 8.0 (0.9-1.1); PROTHROMBIN TIME (PATIENT) > 100.0 SECONDS (9.0-12.0)
[2017-07-05] MEDS ORDERED: PHYTONADIONE 5 MG TAB PO ONE (08:00)
[2017-07-05] MEDS: METOPROLOL TARTRATE 25 MG TAB PO SCH ×2 (08:29→21:02)
[2017-07-05] MEDS: RASPBERRY SYRUP 5 ML UDP PO SCH ×4 (08:30→21:01)
[2017-07-05] MEDS: ASPIRIN 81 MG ECTAB PO SCH (08:30)
[2017-07-05] MEDS: LISINOPRIL 2.5 MG TAB PO SCH (08:30)
[2017-07-05] MEDS: VANCOMYCIN HCL 125 MG/2.5ML SOLN PO SCH ×4 (08:32→21:01)
--- NOTE | 2017-07-05 13:04 | Progress Note ---
Medicine Progress Note Date & Time of Visit: Jul 05, 2017 at 12:45. Subjective Patient reports feeling slightly better today, denies any new complaints. Still has a non productive cough and nasal congestion with drainage. HR improved on tele. No overnight events noted. Patient updated on his results and cultures. Denies any CP, SOB, N/V/D. Objective Last 8 Hrs Date Time Temp Pulse Resp B/P (MAP) Pulse Ox O2 Delivery O2 Flow Rate FiO2 07/05/17 11:57 36.8 86 16 134/84 (101) 98 07/05/17 08:00 37.4 90 18 128/92 (104) 99 Physical Exam: GENERAL: Patient is in no acute distress. HEENT: No acute trauma, normocephalic, mucous membranes moist, + nasal congestion, no scleral icterus. Conjunctivae clear. NECK: No stridor, trachea is midline. LUNGS: Clear to auscultation bilaterally, no wheeze, no rhonchi, breath sounds equal. HEART: Without murmurs gallops or rubs, regular rate and rhythm. ABDOMEN: Soft, nontender, bowel sounds positive, no hepatosplenomegaly EXTREMITIES: No cyanosis or edema NEUROLOGIC: Oriented x 3, no acute motor or sensory deficits, no focal weakness. SKIN: No rash, no jaundice, no diaphoresis. Laboratory Results: Last 24 Hours Test 07/04/17 13:30 07/04/17 15:43 07/04/17 17:28 07/04/17 19:50 White Blood Count 17.52 K/uL Red Blood Count 4.41 M/uL Hemoglobin 14.4 g/dL Hematocrit 42.7 % Mean Corpuscular Volume 96.8 fL Mean Corpuscular Hemoglobin 32.7 pg Mean Corpuscular Hemoglobin Concent 33.7 g/dl Platelet Count 213 K/uL Mean Platelet Volume 11.4 fL Neutrophils (%) (Auto) 86.4 % Lymphocytes (%) (Auto) 5.0 % Monocytes (%) (Auto) 7.9 % Eosinophils (%) (Auto) 0.0 % Basophils (%) (Auto) 0.1 % Neutrophils # (Auto) 15.13 K/uL Lymphocytes # (Auto) 0.88 K/uL Monocytes # (Auto) 1.39 K/uL Eosinophils # (Auto) 0.00 K/uL Basophils # (Auto) 0.02 K/uL RDW Standard Deviation 53.1 fL RDW Coefficient of Variation 15.0 % Immature Granulocyte % (Auto) 0.6 % Immature Granulocyte # (Auto) 0.10 K/uL Prothrombin Time > 100.0 SECONDS Prothromb Time International Ratio > 10.0 Activated Partial Thromboplast Time 73.8 SECONDS Partial Thromboplastin Ratio 2.8 Sodium Level 136 mmol/L Potassium Level 4.0 mmol/L Chloride Level 103 mmol/L Carbon Dioxide Level 23 mmol/L Anion Gap 10.0 mmol/L Blood Urea Nitrogen 58 mg/dl Creatinine 2.40 mg/dl Est Creatinine Clear Calc Drug Dose 29.2 ml/min Estimated GFR () 29.5 Estimated GFR (Non- 25.4 BUN/Creatinine Ratio 24.3 Random Glucose 192 mg/dl Calcium Level 9.0 mg/dl Magnesium Level 2.3 mg/dl Total Bilirubin 0.5 mg/dl Direct Bilirubin 0.2 mg/dl Aspartate Amino Transf (AST/SGOT) 155 U/L Alanine Aminotransferase (ALT/SGPT) 83 U/L Alkaline Phosphatase 147 U/L Total Creatine Kinase 46 U/L 47 U/L Creatine Kinase MB 0.6 ng/ml 1.1 ng/ml Creatine Kinase MB Ratio 1.3 2.3 Troponin I 0.024 ng/ml 0.030 ng/ml Total Protein 6.5 gm/dl Albumin 2.2 gm/dl Lipase 104 U/L Thyroid Stimulating Hormone (TSH) 1.080 uIu/ml Urine Color ORANGE Urine Appearance TURBID Urine pH 5.0 Urine Specific [place] 1.020 Urine Protein 2+ Urine Glucose (UA) NEG Urine Ketones NEG Urine Occult Blood 3+ Urine Nitrite POS Urine Bilirubin NEG Urine Urobilinogen NEG Urine Leukocyte Esterase LARGE Urine WBC (Auto) >30 /hpf Urine RBC (Auto) >30 /hpf Urine Hyaline Casts (Auto) 1-5 /lpf Urine Epithelial Cells (Auto) 10-20 /lpf Urine Bacteria (Auto) 4+ Urine Yeast (Auto) Lactic Acid Level 2.3 mmol/L Procalcitonin 13.76 ng/ml Test 07/04/17 22:44 07/05/17 00:31 07/05/17 06:28 Lactic Acid Level 2.0 mmol/L Influenza Type A (RT-PCR) Neg for Influ A Influenza Type A Antigen Neg for Influ A Influenza Type B Antigen Neg for Influ B Influenza Type B (RT-PCR) POS for Influ B White Blood Count 15.80 K/uL Red Blood Count 4.08 M/uL Hemoglobin 13.4 g/dL Hematocrit 39.6 % Mean Corpuscular Volume 97.1 fL Mean Corpuscular Hemoglobin 32.8 pg Mean Corpuscular Hemoglobin Concent 33.8 g/dl Platelet Count 206 K/uL Mean Platelet Volume 11.1 fL Neutrophils (%) (Auto) 84.7 % Lymphocytes (%) (Auto) 4.0 % Monocytes (%) (Auto) 10.5 % Eosinophils (%) (Auto) 0.1 % Basophils (%) (Auto) 0.1 % Neutrophils # (Auto) 13.38 K/uL Lymphocytes # (Auto) 0.63 K/uL Monocytes # (Auto) 1.66 K/uL Eosinophils # (Auto) 0.02 K/uL Basophils # (Auto) 0.01 K/uL RDW Standard Deviation 53.1 fL RDW Coefficient of Variation 15.0 % Immature Granulocyte % (Auto) 0.6 % Immature Granulocyte # (Auto) 0.10 K/uL Prothrombin Time > 100.0 SECONDS Prothromb Time International Ratio > 8.0 Sodium Level 141 mmol/L Potassium Level 4.2 mmol/L Chloride Level 109 mmol/L Carbon Dioxide Level 25 mmol/L Anion Gap 8.0 mmol/L Blood Urea Nitrogen 56 mg/dl Creatinine 1.85 mg/dl Est Creatinine Clear Calc Drug Dose 37.9 ml/min Estimated GFR () 40.4 Estimated GFR (Non- 34.8 BUN/Creatinine Ratio 30.3 Random Glucose 120 mg/dl Calcium Level 8.4 mg/dl Total Bilirubin 0.5 mg/dl Aspartate Amino Transf (AST/SGOT) 147 U/L Alanine Aminotransferase (ALT/SGPT) 91 U/L Alkaline Phosphatase 141 U/L Total Protein 6.0 gm/dl Albumin 1.9 gm/dl Globulin 4.1 gm/dl Albumin/Globulin Ratio 0.5 Date/Time Source Procedure Growth Status 07/04/17 16:45 Blood Blood Culture Pending Received 07/04/17 16:38 Blood Blood Culture - Preliminary Gram Negative Bacilli Resulted 07/04/17 15:43 Urine , Clean Catch Urine Culture - Preliminary Escherichia Coli Resulted Assessment & Plan SEPSIS: -secondary to UTI and influenza B co-infection -urine and 1/2 blood cultures growing gram neg bacilli -presented with elevated procalcitonin/lactate, leukocytosis, tachycardia, hypotension and KRISTOPHER -WBCs trending down -HR better controlled -BP improved and stable following fluids -CXR negative -recently completed 14 days of flagyl for c-diff; diarrhea has since resolved; was placed on PO vanco on admission due to expected prolonged course of abx -CT abd/pelvis report: 1. No evidence of bowel obstruction. No evidence of free air. 2. Normal appendix. Diverticulosis. No evidence of acute diverticulitis. 3. No evidence of significant active colitis on this noncontrast study. 4. 6.6 cm left renal cyst. No renal or ureteral calculi identified. Bilateral perinephric stranding. 5. 17 mm calcified mesenteric nodule adjacent to the cecum. This a nonspecific finding which likely is secondary to either a carcinoid tumor or postinflammatory calcification. 6. Mildly enlarged left paraaortic lymph node. 7. Mild prostamegaly. 8. Nonspecific 7 mm hypodensity within the right hepatic lobe. -initially given daptomycin & aztreonam; but with UA results positive was switched to ceftriaxone IV -started on tamiflu for the influenza B positive swab KRISTOPHER on CKD: -Cr 2.4, (last baseline 06/01/17 - 1.25) -most likely prerenal related to sepsis and hypovolemia; improving after fluids , 1.85 today -no kidney stone noted on CT scan but mention of b/l perinephric stranding -continue NSS IV -avoid nephrotoxic agents when able SUPRATHERAPEUTIC INR: -INR>10 on admission, given 2.5 mg vitamin K yesterday; INR >8 today, repeat vitamin K -no active bleeding noted -hold coumadin -INR daily -likely elevated with recent flagyl use A-FIB: with RVR on admission -known chronic a-fib -on metoprolol -coumadin held for elevated INR -HR was elevated from sepsis, improved following fluids -holding coumadin as supra therapeutic -continue metoprolol -Cardiology consulted HYPOTHYROIDISM: -continue levothyroxine HYPERLIPIDEMIA: -continue atorvastatin MESENTERIC NODULE: -CT abd/pelvis 17 mm calcified mesenteric nodule adjacent to the cecum. This a nonspecific finding which likely is secondary to either a carcinoid tumor or postinflammatory calcification. -will need further workup Current Inpatient Medications: Current Inpatient Medications Medications (Trade) Dose Ordered Sig/Guillermina Route Start Time Stop Time Status Last Admin Dose Admin Acetaminophen (Tylenol Tab) 650 mg Q4H PRN PO 07/04/17 16:30 08/03/17 16:29 Sodium Chloride 1,000 ml @ 100 mls/hr Q10H IV 07/04/17 17:15 08/03/17 17:14 07/05/17 05:44 100 MLS/HR Aspirin (Ecotrin Tab) 81 mg DAILY PO 07/05/17 09:00 08/04/17 08:59 07/05/17 08:30 81 MG Atorvastatin Calcium (Lipitor Tab) 40 mg QPM PO 07/04/17 21:00 08/03/17 20:59 07/04/17 20:36 40 MG Levothyroxine Sodium (Synthroid Tab) 50 mcg DAILYBB PO 07/05/17 06:00 08/04/17 05:59 07/05/17 05:45 50 MCG Lisinopril (Zestril Tab) 2.5 mg DAILY PO 07/05/17 09:00 08/04/17 08:59 07/05/17 08:30 2.5 MG Metoprolol Tartrate (Lopressor Tab) 25 mg BID PO 07/04/17 21:00 08/03/17 20:59 07/05/17 08:29 25 MG Ceftriaxone Sodium 1 gm/ Dextrose 50 ml @ 100 mls/hr Q24H IV 07/04/17 18:00 07/14/17 17:59 07/04/17 19:35 100 MLS/HR Vancomycin HCl (Vancomycin Oral Soln) 125 mg QID PO 07/04/17 21:00 07/18/17 20:59 07/05/17 08:32 125 MG Raspberry (Raspberry Syrup 5ml Cup) 5 ml QID PO 07/04/17 21:00 07/18/17 20:59 07/05/17 08:30 5 ML Oseltamivir Phosphate (Tamiflu Susp) 30 mg BID PO 07/05/17 21:00 07/10/17 20:59
[2017-07-05] MEDS: CEFTRIAXONE SOD INJ 1 GM in DEXTROSE 5% ADD-VANTAGE 50ML 50 ML IV SCH (18:11)
[2017-07-05] MEDS: OSELTAMIVIR PHOSPHATE SUSP 30 MG/5 ML UDP PO SCH (21:02)
[2017-07-05] MEDS: ATORVASTATIN 40 MG TAB PO SCH (21:02)
[2017-07-06] VITALS (8 sets, daily range): BP systolic 102–150; BP diastolic 64–86; PULSE 72–120; TEMP 36.5–36.9; O2SAT 94–99
[2017-07-06] MEDS: LEVOTHYROXINE 50 MCG TAB PO SCH (05:33)
[2017-07-06 06:19] LABS: HEMATOCRIT 39.4 % (42-52); MEAN CELL VOLUME 97.3 fL (80-100); MEAN CORPUSCULAR HEMOGLOBIN 32.1 pg (25-34); MEAN PLATELET VOLUME 11.2 fL (7.4-10.4); PLATELET COUNT 253 K/uL (130-400); RED BLOOD COUNT 4.05 M/uL (4.7-6.1); WHITE BLOOD COUNT 14.53 K/uL (4.8-10.8)
[2017-07-06 06:30] LABS: PROTHROMBIN TIME (PATIENT) 75.9 SECONDS (9.0-12.0)
[2017-07-06 06:35] LABS: INR 7.5 (0.9-1.1)
[2017-07-06 06:48] LABS: BUN/CREATININE RATIO 30.6 (10-20); CALCIUM 7.9 mg/dl (8.5-10.1); CREATININE 1.57 mg/dl (0.60-1.40); POTASSIUM 3.9 mmol/L (3.5-5.1)
[2017-07-06] MEDS: LISINOPRIL 2.5 MG TAB PO SCH (08:22)
[2017-07-06] MEDS: METOPROLOL TARTRATE 25 MG TAB PO SCH ×2 (08:22→20:57)
[2017-07-06] MEDS: RASPBERRY SYRUP 5 ML UDP PO SCH ×4 (08:22→20:57)
[2017-07-06] MEDS: ASPIRIN 81 MG ECTAB PO SCH (08:22)
[2017-07-06] MEDS: OSELTAMIVIR PHOSPHATE SUSP 30 MG/5 ML UDP PO SCH ×2 (08:23→20:57)
[2017-07-06] MEDS: VANCOMYCIN HCL 125 MG/2.5ML SOLN PO SCH ×4 (08:23→20:57)
--- NOTE | 2017-07-06 09:38 | Clinical Documentation Query ---
CLINICAL DOCUMENTATION QUERY 76 y/o M with PMH a-fib, HTN, hyperlipidemia, hypothyroidism presented to ER with c/o weakness, fever x 1 week. Pt reports hx pacer placed 03/2017 and states was placed on clindamycin and had reaction and took prednisone. In your clinical opinion is this patient being managed for: ( x ) CKD stage 3 - 4 ( ) Not Agree ( ) Other explanation of clinical findings (Please Explain) ( ) Unable to determine (Please Define) ( ) Need to Discuss The medical record reflects the following clinical findings, treatment, and risk factors. Clinical Indicators: GFR 25.4 to 42.5, baseline 56 Treatment: IV hydration, I&O Risk Factors: Age, HTN, KRISTOPHER, dehydration Please clarify and document your clinical opinion in the progress notes and discharge summary. Terms such as "probable", "suspected", "likely", "questionable", "possible", or "still to be ruled out" are acceptable. IF IN AGREEMENT, YOU MUST DOCUMENT ABOVE DIAGNOSTIC STATEMENT IN DAILY PROGRESS NOTES AND DISCHARGE SUMMARY. This document is not part of the patient's record. Thank You, Laquita Petty RN [phone]
[2017-07-06] MEDS: SODIUM CHLORIDE 0.9% 1000ML 1,000 ML IV SCH ×2 (12:49→16:35)
[2017-07-06] MEDS ORDERED: PHYTONADIONE 2.5 MG TAB PO STA (13:45)
[2017-07-06] MEDS: CEFTRIAXONE SOD INJ 1 GM in DEXTROSE 5% ADD-VANTAGE 50ML 50 ML IV SCH (16:34)
--- NOTE | 2017-07-06 18:27 | Progress Note ---
Medicine Progress Note Date & Time of Visit: Jul 06, 2017 at 18:19. Subjective Patient reports feeling better overall today, no overnight events noted. Still has the same non-productive cough and some nasal congestion but not worsening. No other complaints at this time. States he has been ambulating without difficulty. Denies any urinary symptoms. Objective Last 8 Hrs Date Time Temp Pulse Resp B/P (MAP) Pulse Ox O2 Delivery O2 Flow Rate FiO2 07/06/17 16:02 36.7 101 18 111/72 (85) 96 Room Air 07/06/17 16:00 Room Air 07/06/17 12:00 Room Air 07/06/17 11:42 36.6 72 18 131/69 (89) 98 Physical Exam: GENERAL: Patient is in no acute distress. HEENT: No acute trauma, normocephalic, mucous membranes moist, + nasal congestion, no scleral icterus. Conjunctivae clear. NECK: No stridor, trachea is midline. LUNGS: Clear to auscultation bilaterally, no wheeze, no rhonchi, breath sounds equal. HEART: Without murmurs gallops or rubs, irregularly irregular ABDOMEN: Soft, nontender, bowel sounds positive, no hepatosplenomegaly EXTREMITIES: No cyanosis or edema NEUROLOGIC: Oriented x 3, no acute motor or sensory deficits, no focal weakness. SKIN: No rash, no jaundice, no diaphoresis. Laboratory Results: Last 24 Hours Test 07/06/17 06:01 White Blood Count 14.53 K/uL Red Blood Count 4.05 M/uL Hemoglobin 13.0 g/dL Hematocrit 39.4 % Mean Corpuscular Volume 97.3 fL Mean Corpuscular Hemoglobin 32.1 pg Mean Corpuscular Hemoglobin Concent 33.0 g/dl RDW Standard Deviation 53.6 fL RDW Coefficient of Variation 15.0 % Platelet Count 253 K/uL Mean Platelet Volume 11.2 fL Prothrombin Time 75.9 SECONDS Prothromb Time International Ratio 7.5 Sodium Level 142 mmol/L Potassium Level 3.9 mmol/L Chloride Level 110 mmol/L Carbon Dioxide Level 25 mmol/L Anion Gap 6.0 mmol/L Blood Urea Nitrogen 48 mg/dl Creatinine 1.57 mg/dl Est Creatinine Clear Calc Drug Dose 44.6 ml/min Estimated GFR () 49.2 Estimated GFR (Non- 42.5 BUN/Creatinine Ratio 30.6 Random Glucose 111 mg/dl Calcium Level 7.9 mg/dl Assessment & Plan SEPSIS: -secondary to UTI and influenza B co-infection -urine and 2 out of 2 blood cultures growing gram neg bacilli, urine showing E. coli -presented with elevated procalcitonin/lactate, leukocytosis, tachycardia, hypotension and KRISTOPHER -WBCs trending down -HR has been slightly more elevated today during exertion but fairly well controlled at rest -BP improved and stable following fluids -CXR negative -recently completed 14 days of flagyl for c-diff; diarrhea has since resolved; was placed on PO vanco on admission due to expected prolonged course of abx -CT abd/pelvis report: 1. No evidence of bowel obstruction. No evidence of free air. 2. Normal appendix. Diverticulosis. No evidence of acute diverticulitis. 3. No evidence of significant active colitis on this noncontrast study. 4. 6.6 cm left renal cyst. No renal or ureteral calculi identified. Bilateral perinephric stranding. 5. 17 mm calcified mesenteric nodule adjacent to the cecum. This a nonspecific finding which likely is secondary to either a carcinoid tumor or postinflammatory calcification. 6. Mildly enlarged left paraaortic lymph node. 7. Mild prostamegaly. 8. Nonspecific 7 mm hypodensity within the right hepatic lobe. -initially given daptomycin & aztreonam; but with UA results positive was switched to ceftriaxone IV day#2 -started on tamiflu day#2 for the influenza B positive KRISTOPHER on CKD: -Cr 2.4 on admission, trending down to 1.35 (last baseline 06/01/17 - 1.25) -most likely prerenal related to sepsis and hypovolemia; improving after fluids -no kidney stone noted on CT scan but mention of b/l perinephric stranding -continue NSS IV -avoid nephrotoxic agents when able SUPRATHERAPEUTIC INR: -INR>10 on admission, given 2.5 mg vitamin K yesterday; INR 7.5 today, repeat vitamin K dose for 3rd time -no active bleeding noted -holding coumadin -INR daily -likely elevated with recent concurrent flagyl use A-FIB: with RVR on admission -known chronic a-fib -on metoprolol -coumadin held for elevated INR -HR was elevated from sepsis, improved following fluids -holding coumadin as supra therapeutic -continue metoprolol -Cardiology consulted HYPOTHYROIDISM: -continue levothyroxine HYPERLIPIDEMIA: -continue atorvastatin MESENTERIC NODULE: -CT abd/pelvis 17 mm calcified mesenteric nodule adjacent to the cecum. This a nonspecific finding which likely is secondary to either a carcinoid tumor or postinflammatory calcification. -will need further workup, discussed with patient and will check a contrast CT of A/P when renal function returns to baseline Current Inpatient Medications: Current Inpatient Medications Medications (Trade) Dose Ordered Sig/Guillermina Route Start Time Stop Time Status Last Admin Dose Admin Acetaminophen (Tylenol Tab) 650 mg Q4H PRN PO 07/04/17 16:30 08/03/17 16:29 07/05/17 21:01 650 MG Sodium Chloride 1,000 ml @ 100 mls/hr Q10H IV 07/04/17 17:15 08/03/17 17:14 07/06/17 16:35 100 MLS/HR Aspirin (Ecotrin Tab) 81 mg DAILY PO 07/05/17 09:00 08/04/17 08:59 07/06/17 08:22 81 MG Atorvastatin Calcium (Lipitor Tab) 40 mg QPM PO 07/04/17 21:00 08/03/17 20:59 07/05/17 21:02 40 MG Levothyroxine Sodium (Synthroid Tab) 50 mcg DAILYBB PO 07/05/17 06:00 08/04/17 05:59 07/06/17 05:33 50 MCG Lisinopril (Zestril Tab) 2.5 mg DAILY PO 07/05/17 09:00 08/04/17 08:59 07/06/17 08:22 2.5 MG Metoprolol Tartrate (Lopressor Tab) 25 mg BID PO 07/04/17 21:00 08/03/17 20:59 07/06/17 08:22 25 MG Ceftriaxone Sodium 1 gm/ Dextrose 50 ml @ 100 mls/hr Q24H IV 07/04/17 18:00 07/14/17 17:59 07/06/17 16:34 100 MLS/HR Vancomycin HCl (Vancomycin Oral Soln) 125 mg QID PO 07/04/17 21:00 07/18/17 20:59 07/06/17 16:34 125 MG Raspberry (Raspberry Syrup 5ml Cup) 5 ml QID PO 07/04/17 21:00 07/18/17 20:59 07/06/17 16:34 5 ML Oseltamivir Phosphate (Tamiflu Susp) 30 mg BID PO 07/05/17 21:00 07/10/17 20:59 07/06/17 08:23 30 MG
[2017-07-06] MEDS: ATORVASTATIN 40 MG TAB PO SCH (20:57)
[2017-07-07 03:30] VITALS: BP 131/88; PULSE 110; TEMP 36.9; O2SAT 97
[2017-07-07] MEDS: SODIUM CHLORIDE 0.9% 1000ML 1,000 ML IV SCH ×2 (05:50→15:50)
[2017-07-07] MEDS: LEVOTHYROXINE 50 MCG TAB PO SCH (05:51)
[2017-07-07 08:02] VITALS: BP 130/102; PULSE 116; TEMP 37.2; O2SAT 96
[2017-07-07] MEDS: ASPIRIN 81 MG ECTAB PO SCH (08:18)
[2017-07-07] MEDS: LISINOPRIL 2.5 MG TAB PO SCH (08:18)
[2017-07-07] MEDS: METOPROLOL TARTRATE 25 MG TAB PO SCH (08:18)
[2017-07-07 09:23] LABS: HEMATOCRIT 33.9 % (42-52); MEAN CELL VOLUME 96.6 fL (80-100); MEAN CORPUSCULAR HGB CONC 34.2 g/dl (32-36); MEAN PLATELET VOLUME 11.3 fL (7.4-10.4); PLATELET COUNT 309 K/uL (130-400); RED BLOOD COUNT 3.51 M/uL (4.7-6.1); WHITE BLOOD COUNT 13.65 K/uL (4.8-10.8)
[2017-07-07 09:34] LABS: PROTHROMBIN TIME (PATIENT) 63.6 SECONDS (9.0-12.0)
[2017-07-07 09:39] LABS: INR 6.3 (0.9-1.1)
[2017-07-07] MEDS: RASPBERRY SYRUP 5 ML UDP PO SCH ×4 (09:40→21:17)
[2017-07-07] MEDS: VANCOMYCIN HCL 125 MG/2.5ML SOLN PO SCH ×4 (09:40→21:19)
[2017-07-07] MEDS: OSELTAMIVIR PHOSPHATE SUSP 30 MG/5 ML UDP PO SCH ×2 (09:41→21:18)
[2017-07-07 09:58] LABS: BUN/CREATININE RATIO 31.2 (10-20); CALCIUM 7.9 mg/dl (8.5-10.1); CREATININE 1.24 mg/dl (0.60-1.40); POTASSIUM 4.1 mmol/L (3.5-5.1)
[2017-07-07 11:58] VITALS: BP 133/97; PULSE 105; TEMP 37.2; O2SAT 97
[2017-07-07] MEDS ORDERED: OPTIRAY 320 IV PRN (13:30)
--- NOTE | 2017-07-07 14:30 | Progress Note ---
Progress Note Date of Service Jul 07, 2017. Progress Note ID Consult Dictated #[id number] A/P: 1. E. Coli septicemia 2. UTI 3. Influenza B 4. Leukocytosis 5. Transaminitis, ? secondary to flu vs liver -Continue ctx for now, upon d/c can transition to po kelfex 500mg tid x 14 days -Continue tamiflu, 5 days total, continue droplet precautions -Will continue po vanco upon d/c for duration of abx due to recent c diff diagnosis prior to admission -Will repeat blood cultures x 2 -Discussed with primary, thank you
--- NOTE | 2017-07-07 15:01 | DIAGNOSTIC IMAGING REPORT ---
ABDOMEN AND PELVIS CT WITH IV CONTRAST CT DOSE: 808.46 mGy.cm HISTORY: Acute fever with colitis. Follow-up study to evaluate a 17 cm calcified mesenteric nodule adjacent to the cecum Evaluate the calcified nodule/poss carcinoid, and the liver nodu TECHNIQUE: Multiaxial CT images of the abdomen and pelvis were performed following the use of intravenous contrast. A dose lowering technique was utilized adhering to the principles of ALARA. COMPARISON STUDY: CT abdomen and pelvis 07/04/2017. FINDINGS: Unchanged pleural-based 4 mm nodule 30 lateral segment right middle lobe is seen suggesting area of scarring. Thin-walled cyst of the medial basal segment right lower lobe unchanged. No pneumatosis or pneumoperitoneum. Pacer leads noted overlying the right heart. Heart is mildly enlarged. 7 mm low attenuating lesion is again noted involving segment 7 of the liver on image 73 series 3 which is too small to characterize. Additionally, there is a 5 mm low attenuating lesion noted involving segment 2 of the liver, image 55 series 3. No intrahepatic biliary ductal dilation. The gallbladder is mildly contracted. Spleen, pancreas and adrenal glands are within normal limits. Large cyst of left kidney is again seen, 6.4 x 6.0 cm within the interpolar portion. Additional scattered low attenuating lesions of the kidneys are noted which suggest renal cysts, most of which are too small to characterize. Moderate symmetric bilateral perinephric edema redemonstrated. No renal calculi or hydronephrosis. The urinary bladder demonstrates a ventral wall thickening with perivesicular stranding. Prostamegaly. Mild free fluid is noted along the right pericolic gutter and dependent pelvis. Aorta is normal in both course and caliber. Nonspecific left aortic lymph node is again seen at the level of the kidneys, 0.5 x 1.2 cm. There is no bowel obstruction. Moderate colonic diverticulosis without acute diverticulitis. Mural fibrofatty changes of the cecum are noted. There is mild wall thickening of the terminal ileum. Nondilated fluid-filled loops of distal ileum are noted. Partially calcified mass of the right lower quadrant mesentery adjacent to the ileocecal valve is again seen, 2.2 x 2.0 x 3.0 cm nicely seen on image 22 series 3 with enhancing soft tissue component noted on image 192. There is a large intramuscular hematoma noted involving the right iliacus and iliopsoas musculature which measures up to 9.7 x 5.9 x 20.4 cm. Bones appear intact. Multilevel degenerative changes of the spine. 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 IMPRESSION: 1. Enhancing spiculated partially calcified mass of the right lower quadrant mesentery adjacent to the ileocecal valve causes tethering of the adjacent mesentery and measures up to 3.0 cm, very suspicious for ileal carcinoid tumor. Additionally, there is associated wall thickening of the terminal ileum with minimal fluid distention noted proximally. No bowel obstruction. Surgical consultation recommended. 2. Interval development of a large intramuscular hematoma of the right iliacus and iliopsoas musculature measuring up to 20.4 cm in length. 3. Low attenuating lesions of the liver are too small to characterize, largest of which measures up to 7 mm within the posterior right hepatic lobe. 4. Prostamegaly with possible cystitis. 5. Additional findings as above. Electronically signed by: Zaire Wong M.D. 07/07/2017 3:00 PM Dictated Date/Time: 07/07/2017 2:45 PM
--- NOTE | 2017-07-07 15:26 | INFECT. DISEASE CONSULTATION ---
DATE OF CONSULTATION: 07/07/2017 REQUESTING PHYSICIAN: Dr. Coates. HISTORY OF PRESENT ILLNESS: This is a 76-year-old gentleman who was admitted to the hospital with weakness and fever that lasted a week. His is present and helps provide history. She states they both have been sick off and on, but over the weekend into the early part of this week, the patient began with worsening cough, fevers up to 104 degrees and significant weakness. He had recently been treated for urinary tract infection in early June. He unfortunately developed C. diff and was given Flagyl for 14 days. His diarrhea resolved; however, when he was admitted, his INR was greater than 10. He has been taking Coumadin for AFib. On admission to the hospital, he was afebrile and had been afebrile with the exception of a 1-time low-grade temperature of 37.9 on the . He was found to have a leukocytosis of 17 in the ER. This has improved to 13. Blood and urine cultures were obtained. His urinalysis was markedly abnormal in the ER with greater than 30 WBCs and 4+ bacteria. His urine culture grew E. coli resistant to Macrobid only. His blood cultures grew pansensitive E. coli. No repeat blood cultures have been obtained. He has been on Rocephin. He was also placed on oral vancomycin secondary to his recent history of C. diff, although he denies any diarrhea. A flu swab was obtained secondary to his respiratory symptoms and fever and he was positive for influenza B. He has been in droplet precautions at times and was placed on twice daily Tamiflu. He is tolerating this well. Today, he states he is feeling significantly better. He denies any cough, shortness of breath or chest pain. He is eating well. He has no nausea, vomiting, diarrhea or abdominal pain. He denies any urinary symptoms, but states he did not have any urinary symptoms prior to admission. He did undergo a CAT scan as part of the initial evaluation and this did not show any kidney abnormality; however, there is a nonspecific 7-mm right lobe hypodensity. His LFTs have been abnormal since admission. He is to have a repeat CAT scan done this afternoon. His INR is improving. His leukocytosis is improving as well. All remaining review of systems reviewed and are unremarkable. PAST MEDICAL HISTORY: Significant for AFib on Coumadin, high cholesterol, rectal abscess, hypertension, history of PE, hypothyroidism, and vitamin D deficiency. PAST SURGICAL HISTORY: Significant for colonoscopy, tonsillectomy and adenoidectomy. FAMILY HISTORY: Noncontributory. SOCIAL HISTORY: Significant for a history of tobacco use. He quit over 20 years ago. He denies any drug use. He drinks occasionally. He is and lives with his . He denies any recent sick contacts. ALLERGIES: HE HAS ALLERGIES TO PENICILLIN AND CLINDAMYCIN, BUT HAS TOLERATED IV AND ORAL CEPHALOSPORINS PREVIOUSLY. MEDICATIONS: Include Lopressor, Tamiflu, Ecotrin, lisinopril, Synthroid, Lipitor, oral vancomycin, Rocephin, and Tylenol. PHYSICAL EXAMINATION: VITAL SIGNS: He is afebrile, pulse 105, respiratory rate 18, blood pressure 133/97, and oxygen saturation is 97% on room air. GENERAL: He is awake, alert and oriented x3. He is in no acute distress. HEENT: Mucous membranes are moist. Extraocular muscles are intact. HEART: Regular. LUNGS: Clear bilaterally. ABDOMEN: Soft, nontender, and nondistended. EXTREMITIES: There is no lower extremity edema bilaterally. SKIN: Without rash. LABORATORY STUDIES: CBC today reveals a white blood cell count of 13.6, hemoglobin 11.6, and platelets are 309. Chemistry panel reveals a sodium of 143, potassium 4.1, chloride 113, bicarbonate 23, BUN 39, and creatinine 1.2, improved from 2.4 on admission. Glucose is 99. increased to 91 from 83. Bilirubin is normal. Lactic acid was 2.3 on admission and has improved to 2.0. Procalcitonin was 13.7 on admission. INR was greater than 10 on admission and has improved to 6.3 today. Urinalysis has large leukocyte esterase, greater than 30 WBCs and +4 bacteria. Flu swab was positive for influenza B. Urine culture from the 4th is growing E. coli. Blood cultures from the 4th are growing E. coli in 2/2 sets. No repeat blood cultures have been obtained. A chest x-ray in the Emergency Room showed no acute findings. CT of the abdomen and pelvis is as above. ASSESSMENT AND PLAN: 1. Escherichia coli septicemia secondary to urinary tract infection. 2. Influenza B. 3. Leukocytosis, improving. 4. Transaminitis, certainly could be related to influenza B versus other liver abnormality. Repeat CAT scan is pending. At this time, he will remain on IV Rocephin. Upon discharge, he can be transitioned to oral Keflex 500 mg twice daily to complete a 14-day course. Repeat blood cultures will be obtained today to document sterility. He will remain in droplet precautions until his course of Tamiflu is finished. This will be 5 days' duration. I would recommend continuing on oral vancomycin post-discharge from the hospital while he is on systemic antibiotics to treat his E. coli infection. This was discussed with primary service. Thank you for this consultation. TOMASA
[2017-07-07 15:37] VITALS: BP 137/97; TEMP 37.3; O2SAT 98
[2017-07-07] MEDS ORDERED: PHYTONADIONE 5 MG TAB PO STA (16:22)
[2017-07-07] MEDS: CEFTRIAXONE SOD INJ 1 GM in DEXTROSE 5% ADD-VANTAGE 50ML 50 ML IV SCH (17:18)
--- NOTE | 2017-07-07 18:02 | Surgery Consultation ---
Consultation Date of Consultation: Jul 07, 2017. Attending Physician: Liz Coates D.O. History of Present Illness Pt is 76 y/o M with PMH a-fib, HTN, hyperlipidemia, hypothyroidism presented to ER with c/o weakness, fever x 1 week. Pt reports hx pacer placed 03/2017 and states was placed on clindamycin and had reaction and took prednisone. Reports hx UTI 06/01/17 and was placed on cefdinir. Pt then reports onset diarrhea and placed on flagyl x 14 days on 06/21/17 and finished course yesterday. He states diarrhea has resolved. Had soft BM this morning. States was taking coumadin 5mg daily instead of 7.5mg daily since was on flagyl. Pt reports for past week with fevers, highest 104F 3 days ago. Has been taking Tylenol for fever which brings down then fever returns. Last dose Tylenol last night. Also reports feeling generalized weakness and felt winded with exertion x 1 week and chills and sweats. C/O poor appetite past week and intermittent nausea several days ago. Denies any nausea currently. Denies vomiting. Pt reports taking BP at home and 2 days ago BP's 73/48 and 69/56, other days BP low 100s systolic. Past week feels like heart flutters and noted pulse to be low 100's. States couple weeks ago UR symptoms which have since resolved. Denies vomiting, melena, hematochezia , CARVALHO, syncope, vision changes, neck pain, CP, orthopnea, choking, otalgia, abdominal pain, paresthesias, extremity edema, rashes, dysuria, hematuria. In ER pt given 1L NSS. WBC: 17.5. CR: 2.4 (1.25 baseline). INR>10 and was given 2.5mg Vit K. Pending lactic acid. Pending CT abd/pelvix, U/A. pending blood cultures. Negative CXR. I got a call for consult cecal mass, I saw pt and reviewed H/P with pt, pt feels better, pt denies bloody stool, no abdominal pain, no nausea, no vomiting. Past Medical/Surgical History Medical Problems: (1) Acute renal failure Status: Acute (2) C. difficile colitis Status: Acute (3) Dehydration Status: Acute (4) Elevated INR Status: Acute (5) Urinary tract infection Status: Acute Family History Diabetes mellitus MOTHER BROTHER FH: cancer FATHER (possible liver CA) GRANDMOTHER (possible lung CA) Hypertension FATHER Stroke GRANDMOTHER Social History Smoking Status: Former Smoker Smokeless Tobacco Use: No Alcohol Use: socially Drug Use: none Marital Status: Housing Status: lives with family Occupation Status: retired Allergies Coded Allergies: Clindamycin (Verified Allergy, Unknown, UNKNOWN, 07/04/17) Penicillins (Verified Allergy, Unknown, "happened as a child, not sure of reaction", 07/04/17) Uncoded Allergies: PEROXID (Allergy, Severe, SEVERE RASH, 03/29/17) Home Medications Scheduled Aspirin (Aspirin Ec), 81 MG PO DAILY Atorvastatin (Lipitor), 40 MG PO QPM Calcium Carbonate-Vitamin D W/ (Caltrate 600 Plus), 1 TAB PO DAILY Cholecalciferol (Vitamin D 1000 Unit), 1,000 INTER.UNIT PO DAILY Levothyroxine Sodium (Synthroid), 50 MCG PO DAILY Lisinopril (Lisinopril), 2.5 MG PO DAILY Metoprolol Tartrate (Lopressor) (Lopressor), 25 MG PO BID Metronidazole (Flagyl), 500 MG PO BID Warfarin Sod (Jantoven), 7.5 MG PO [id number] Warfarin Sod (Jantoven), 5 MG PO WED Current Inpatient Medications Current Inpatient Medications Medications (Trade) Dose Ordered Sig/Guillermina Route Start Time Stop Time Status Last Admin Dose Admin Acetaminophen (Tylenol Tab) 650 mg Q4H PRN PO 07/04/17 16:30 08/03/17 16:29 07/05/17 21:01 650 MG Sodium Chloride 1,000 ml @ 100 mls/hr Q10H IV 07/04/17 17:15 08/03/17 17:14 07/07/17 15:50 100 MLS/HR Aspirin (Ecotrin Tab) 81 mg DAILY PO 07/05/17 09:00 08/04/17 08:59 07/07/17 08:18 81 MG Atorvastatin Calcium (Lipitor Tab) 40 mg QPM PO 07/04/17 21:00 08/03/17 20:59 07/06/17 20:57 40 MG Levothyroxine Sodium (Synthroid Tab) 50 mcg DAILYBB PO 07/05/17 06:00 08/04/17 05:59 07/07/17 05:51 50 MCG Lisinopril (Zestril Tab) 2.5 mg DAILY PO 07/05/17 09:00 08/04/17 08:59 07/07/17 08:18 2.5 MG Ceftriaxone Sodium 1 gm/ Dextrose 50 ml @ 100 mls/hr Q24H IV 07/04/17 18:00 07/14/17 17:59 07/07/17 17:18 100 MLS/HR Vancomycin HCl (Vancomycin Oral Soln) 125 mg QID PO 07/04/17 21:00 07/18/17 20:59 07/07/17 17:18 125 MG Raspberry (Raspberry Syrup 5ml Cup) 5 ml QID PO 07/04/17 21:00 07/18/17 20:59 07/07/17 17:18 5 ML Oseltamivir Phosphate (Tamiflu Susp) 30 mg BID PO 07/05/17 21:00 07/10/17 20:59 07/07/17 09:41 30 MG Metoprolol Tartrate (Lopressor Tab) 50 mg BID PO 07/07/17 21:00 08/03/17 20:59 Ioversol (Optiray 320) 100 ml UD PRN IV 07/07/17 13:30 07/11/17 13:29 Review of Systems Constitutional: + fever Eyes: No worsening of vision, No eye pain, No redness, No discharge, No diplopia, No problem reported ENT: No hearing loss, No unusual epistaxis, No nasal symptoms, No sore throat, No tinnitus, No dental problems, No trouble swallowing, No problem reported Respiratory: No cough, No sputum, No wheezing, No shortness of breath, No dyspnea on exertion, No dyspnea at rest, No hemoptysis, No problem reported Cardiovascular: + problem reported (HTN, S/P pacemaker, A-fib 20 yeras) Abdomen: No pain, No nausea, No vomiting, No diarrhea, No constipation, No GI bleeding, No problem reported Musculoskeletal: No joint pain, No muscle pain, No swelling, No calf pain, No problem reported Genitourinary - Male: No hematuria, No dysuria, No urinary frequency, No urinary urgency, No urinary hesitancy, No urinary retention, No urinary incontinence, No penile discharge, No lesions, No impotence, No problem reported Neurologic: No memory loss, No paralysis, No weakness, No numbness/tingling, No vertigo, No balance problems, No problem reported Psychiatric: No depression symptoms, No anhedonism, No anxiety, No insomnia, No substance abuse, No problem reported Endocrine: No fatigue, No excessive thirst, No excessive urination, No problem reported Hematologic / Lymphatic: No abnormal bleeding/bruising, No clotting problems, No swollen lymph nodes, No night sweats, No problem reported Physical Exam Date Time Temp Pulse Resp B/P (MAP) Pulse Ox O2 Delivery O2 Flow Rate FiO2 07/07/17 15:37 37.3 18 137/97 (110) 98 Room Air 07/07/17 11:58 37.2 105 18 133/97 (109) 97 Room Air 07/07/17 10:00 Room Air 07/07/17 08:02 37.2 116 18 130/102 (111) 96 Room Air 07/07/17 08:00 Room Air 07/07/17 04:00 Room Air 07/07/17 03:30 36.9 110 22 131/88 (102) 97 Room Air 07/07/17 00:05 Room Air 07/06/17 23:50 36.5 108 22 150/86 (107) 94 Room Air 07/06/17 20:00 Room Air 07/06/17 19:10 36.8 114 18 127/78 (94) 99 Room Air General Appearance: WD/WN, no apparent distress Head: normocephalic, atraumatic Eyes: normal inspection ENT: normal ENT inspection Neck: supple, no JVD Respiratory/Chest: chest non-tender, lungs clear Cardiovascular: regular rate, rhythm, no edema, no gallop, no JVD, no murmur, + irregularly irregular, + abnormal rate Abdomen/GI: normal bowel sounds, non tender, soft, no organomegaly Extremities/Musculoskelatal: normal inspection, no calf tenderness, normal capillary refill Neurologic/Psych: no motor/sensory deficits, alert, normal mood/affect Skin: normal color, warm/dry, no rash Laboratory Results Last 24 Hours Test 07/07/17 06:29 White Blood Count 13.65 K/uL Red Blood Count 3.51 M/uL Hemoglobin 11.6 g/dL Hematocrit 33.9 % Mean Corpuscular Volume 96.6 fL Mean Corpuscular Hemoglobin 33.0 pg Mean Corpuscular Hemoglobin Concent 34.2 g/dl RDW Standard Deviation 54.1 fL RDW Coefficient of Variation 15.3 % Platelet Count 309 K/uL Mean Platelet Volume 11.3 fL Prothrombin Time 63.6 SECONDS Prothromb Time International Ratio 6.3 Sodium Level 143 mmol/L Potassium Level 4.1 mmol/L Chloride Level 113 mmol/L Carbon Dioxide Level 23 mmol/L Anion Gap 7.0 mmol/L Blood Urea Nitrogen 39 mg/dl Creatinine 1.24 mg/dl Est Creatinine Clear Calc Drug Dose 56.5 ml/min Estimated GFR () 65.5 Estimated GFR (Non- 56.5 BUN/Creatinine Ratio 31.2 Random Glucose 99 mg/dl Calcium Level 7.9 mg/dl Assessment & Plan ABDOMEN AND PELVIS CT WITH IV CONTRAST CT DOSE: 808.46 mGy.cm HISTORY: Acute fever with colitis. Follow-up study to evaluate a 17 cm calcified mesenteric nodule adjacent to the cecum Evaluate the calcified nodule/poss carcinoid, and the liver nodu TECHNIQUE: Multiaxial CT images of the abdomen and pelvis were performed following the use of intravenous contrast. A dose lowering technique was utilized adhering to the principles of ALARA. COMPARISON STUDY: CT abdomen and pelvis 07/04/2017. FINDINGS: Unchanged pleural-based 4 mm nodule 30 lateral segment right middle lobe is seen suggesting area of scarring. Thin-walled cyst of the medial basal segment right lower lobe unchanged. No pneumatosis or pneumoperitoneum. Pacer leads noted overlying the right heart. Heart is mildly enlarged. 7 mm low attenuating lesion is again noted involving segment 7 of the liver on image 73 series 3 which is too small to characterize. Additionally, there is a 5 mm low attenuating lesion noted involving segment 2 of the liver, image 55 series 3. No intrahepatic biliary ductal dilation. The gallbladder is mildly contracted. Spleen, pancreas and adrenal glands are within normal limits. Large cyst of left kidney is again seen, 6.4 x 6.0 cm within the interpolar portion. Additional scattered low attenuating lesions of the kidneys are noted which suggest renal cysts, most of which are too small to characterize. Moderate symmetric bilateral perinephric edema redemonstrated. No renal calculi or hydronephrosis. The urinary bladder demonstrates a ventral wall thickening with perivesicular stranding. Prostamegaly. Mild free fluid is noted along the right pericolic gutter and dependent pelvis. Aorta is normal in both course and caliber. Nonspecific left aortic lymph node is again seen at the level of the kidneys, 0.5 x 1.2 cm. There is no bowel obstruction. Moderate colonic diverticulosis without acute diverticulitis. Mural fibrofatty changes of the cecum are noted. There is mild wall thickening of the terminal ileum. Nondilated fluid-filled loops of distal ileum are noted. Partially calcified mass of the right lower quadrant mesentery adjacent to the ileocecal valve is again seen, 2.2 x 2.0 x 3.0 cm nicely seen on image 22 series 3 with enhancing soft tissue component noted on image 192. There is a large intramuscular hematoma noted involving the right iliacus and iliopsoas musculature which measures up to 9.7 x 5.9 x 20.4 cm. Bones appear intact. Multilevel degenerative changes of the spine. 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 IMPRESSION: 1. Enhancing spiculated partially calcified mass of the right lower quadrant mesentery adjacent to the ileocecal valve causes tethering of the adjacent mesentery and measures up to 3.0 cm, very suspicious for ileal carcinoid tumor. Additionally, there is associated wall thickening of the terminal ileum with minimal fluid distention noted proximally. No bowel obstruction. Surgical consultation recommended. 2. Interval development of a large intramuscular hematoma of the right iliacus and iliopsoas musculature measuring up to 20.4 cm in length. 3. Low attenuating lesions of the liver are too small to characterize, largest of which measures up to 7 mm within the posterior right hepatic lobe. 4. Prostamegaly with possible cystitis. 5. Additional findings as above. Assessment: pt is a 76yo male who was admitted to hospital for abnormal BP, weakness, UTI, C-diff, pt had CT scan today Dx- cecal mass, pt had colonoscopy with polyp removed 10 years ago, pt denies abdominal pain, no bloody stool, no weight loss, IMP: cecal mass Plan, consult GI doctor for colonoscopy biopsy cecal mass, I will F/U pt in my office next Tuesday afternoon, once pt has biopsy result back, D/W next step treat plan, ( [phone]) pt and his agree with the plan, sign off today, please call me any questions. Thanks,
--- NOTE | 2017-07-07 19:11 | Progress Note ---
Medicine Progress Note Date & Time of Visit: Jul 07, 2017 at 19:02. Subjective Patient denies any new complaints, denies any diarrhea. Has been voiding without any pain or difficulty. No overnight events noted. This AM was more tachycardic with movement and at rest returns to low 100's. Patients at the bedside, had a long discussion with the patient and his about the results of the CT scan. Objective Last 8 Hrs Date Time Temp Pulse Resp B/P (MAP) Pulse Ox O2 Delivery O2 Flow Rate FiO2 07/07/17 15:37 37.3 18 137/97 (110) 98 Room Air 07/07/17 11:58 37.2 105 18 133/97 (109) 97 Room Air Physical Exam: GENERAL: Patient is in no acute distress. HEENT: No acute trauma, normocephalic, mucous membranes moist, + nasal congestion, no scleral icterus. Conjunctivae clear. NECK: No stridor, trachea is midline. LUNGS: Clear to auscultation bilaterally, no wheeze, no rhonchi, breath sounds equal. HEART: Without murmurs gallops or rubs, irregularly irregular ABDOMEN: Soft, nontender, bowel sounds positive, no hepatosplenomegaly EXTREMITIES: No cyanosis or edema NEUROLOGIC: Oriented x 3, no acute motor or sensory deficits, no focal weakness. SKIN: No rash, no jaundice, no diaphoresis. Laboratory Results: Last 24 Hours Test 07/07/17 06:29 White Blood Count 13.65 K/uL Red Blood Count 3.51 M/uL Hemoglobin 11.6 g/dL Hematocrit 33.9 % Mean Corpuscular Volume 96.6 fL Mean Corpuscular Hemoglobin 33.0 pg Mean Corpuscular Hemoglobin Concent 34.2 g/dl RDW Standard Deviation 54.1 fL RDW Coefficient of Variation 15.3 % Platelet Count 309 K/uL Mean Platelet Volume 11.3 fL Prothrombin Time 63.6 SECONDS Prothromb Time International Ratio 6.3 Sodium Level 143 mmol/L Potassium Level 4.1 mmol/L Chloride Level 113 mmol/L Carbon Dioxide Level 23 mmol/L Anion Gap 7.0 mmol/L Blood Urea Nitrogen 39 mg/dl Creatinine 1.24 mg/dl Est Creatinine Clear Calc Drug Dose 56.5 ml/min Estimated GFR () 65.5 Estimated GFR (Non- 56.5 BUN/Creatinine Ratio 31.2 Random Glucose 99 mg/dl Calcium Level 7.9 mg/dl Date/Time Source Procedure Growth Status 07/07/17 15:17 Blood Blood Culture Pending Received 07/07/17 15:02 Blood Blood Culture Pending Received Assessment & Plan SEPSIS: -secondary to UTI and influenza B co-infection -urine and 2 out of 2 blood cultures growing gram neg bacilli, urine showing E. coli -presented with elevated procalcitonin/lactate, leukocytosis, tachycardia, hypotension and KRISTOPHER -WBCs trending down -HR has been slightly more elevated today during exertion but fairly well controlled at rest -BP improved and stable following fluids -CXR negative -recently completed 14 days of flagyl for c-diff; diarrhea has since resolved; was placed on PO vanco on admission due to expected prolonged course of abx -CT abd/pelvis report: 1. No evidence of bowel obstruction. No evidence of free air. 2. Normal appendix. Diverticulosis. No evidence of acute diverticulitis. 3. No evidence of significant active colitis on this noncontrast study. 4. 6.6 cm left renal cyst. No renal or ureteral calculi identified. Bilateral perinephric stranding. 5. 17 mm calcified mesenteric nodule adjacent to the cecum. This a nonspecific finding which likely is secondary to either a carcinoid tumor or postinflammatory calcification. 6. Mildly enlarged left paraaortic lymph node. 7. Mild prostamegaly. 8. Nonspecific 7 mm hypodensity within the right hepatic lobe. -initially given daptomycin & aztreonam; but with UA results positive was switched to ceftriaxone IV day#3 -started on tamiflu day#3 for the influenza B positive -CT with contrast demonstrates prostatomegaly and adjacent stranding, bringing up the question as to whether this is sepsis is from prostatitis KRISTOPHER on CKD: -Cr 2.4 on admission, trending down to 1.24 (last baseline 06/01/17 - 1.25) -most likely prerenal related to sepsis and hypovolemia; improving after fluids -no kidney stone noted on CT scan but mention of b/l perinephric stranding -continue NSS IV -avoid nephrotoxic agents when able SUPRATHERAPEUTIC INR: -INR>10 on admission, given 2.5 mg vitamin K; INR 7.5; today is 6.7, repeat vitamin K dose for 4th time -no active bleeding noted -holding coumadin -INR daily -likely elevated with recent concurrent flagyl use INTRAMUSCULAR HEMATOMA: -patient with a large intramuscular hematoma of the right iliacus and iliopsoas musculature measuring up to 20.4 cm in length -monitor H&H closely -continue to reverse anticoagulation and reduce INR A-FIB: with RVR on admission -known chronic a-fib -on metoprolol -coumadin held for elevated INR -HR was elevated from sepsis, improved following fluids -holding coumadin as supra therapeutic -continue metoprolol, dose titrated up to achieve better control -Cardiology consulted HYPOTHYROIDISM: -continue levothyroxine HYPERLIPIDEMIA: -continue atorvastatin MESENTERIC MASS: -CT abd/pelvis 17 mm calcified mesenteric nodule adjacent to the cecum. This a nonspecific finding which likely is secondary to either a carcinoid tumor or postinflammatory calcification. -this appears as a 3 cm mass on contrast CT -CT abd/pelvis shows: CT with IV contrast report: 1. Enhancing spiculated partially calcified mass of the right lower quadrant mesentery adjacent to the ileocecal valve causes tethering of the adjacent mesentery and measures up to 3.0 cm, very suspicious for ileal carcinoid tumor. Additionally, there is associated wall thickening of the terminal ileum with minimal fluid distention noted proximally. No bowel obstruction. Surgical consultation recommended. 2. Interval development of a large intramuscular hematoma of the right iliacus and iliopsoas musculature measuring up to 20.4 cm in length. 3. Low attenuating lesions of the liver are too small to characterize, largest of which measures up to 7 mm within the posterior right hepatic lobe. 4. Prostamegaly with possible cystitis. Current Inpatient Medications: Current Inpatient Medications Medications (Trade) Dose Ordered Sig/Guillermina Route Start Time Stop Time Status Last Admin Dose Admin Acetaminophen (Tylenol Tab) 650 mg Q4H PRN PO 07/04/17 16:30 08/03/17 16:29 07/05/17 21:01 650 MG Sodium Chloride 1,000 ml @ 100 mls/hr Q10H IV 07/04/17 17:15 08/03/17 17:14 07/07/17 15:50 100 MLS/HR Aspirin (Ecotrin Tab) 81 mg DAILY PO 07/05/17 09:00 08/04/17 08:59 07/07/17 08:18 81 MG Atorvastatin Calcium (Lipitor Tab) 40 mg QPM PO 07/04/17 21:00 08/03/17 20:59 07/06/17 20:57 40 MG Levothyroxine Sodium (Synthroid Tab) 50 mcg DAILYBB PO 07/05/17 06:00 08/04/17 05:59 07/07/17 05:51 50 MCG Lisinopril (Zestril Tab) 2.5 mg DAILY PO 07/05/17 09:00 08/04/17 08:59 07/07/17 08:18 2.5 MG Ceftriaxone Sodium 1 gm/ Dextrose 50 ml @ 100 mls/hr Q24H IV 07/04/17 18:00 07/14/17 17:59 07/07/17 17:18 100 MLS/HR Vancomycin HCl (Vancomycin Oral Soln) 125 mg QID PO 07/04/17 21:00 07/18/17 20:59 07/07/17 17:18 125 MG Raspberry (Raspberry Syrup 5ml Cup) 5 ml QID PO 07/04/17 21:00 07/18/17 20:59 07/07/17 17:18 5 ML Oseltamivir Phosphate (Tamiflu Susp) 30 mg BID PO 07/05/17 21:00 07/10/17 20:59 07/07/17 09:41 30 MG Metoprolol Tartrate (Lopressor Tab) 50 mg BID PO 07/07/17 21:00 08/03/17 20:59 Ioversol (Optiray 320) 100 ml UD PRN IV 07/07/17 13:30 07/11/17 13:29
[2017-07-07 19:36] VITALS: BP 143/91; PULSE 106; TEMP 37.3; O2SAT 97
[2017-07-07] MEDS ORDERED: NURSING VERBAL MED ORDER ONE (20:30)
[2017-07-07] MEDS: METOPROLOL TARTRATE 50 MG TAB PO SCH (21:16)
[2017-07-07] MEDS: ATORVASTATIN 40 MG TAB PO SCH (21:17)
[2017-07-07 23:15] VITALS: BP 131/95; PULSE 92; TEMP 37.7; O2SAT 93
[2017-07-08] VITALS (8 sets, daily range): BP systolic 103–130; BP diastolic 72–87; PULSE 80–110; TEMP 36.8–37.2; O2SAT 93–98
[2017-07-08] MEDS: LEVOTHYROXINE 50 MCG TAB PO SCH (05:36)
[2017-07-08 06:36] LABS: HEMATOCRIT 33.3 % (42-52); MEAN CELL VOLUME 97.4 fL (80-100); MEAN CORPUSCULAR HEMOGLOBIN 32.5 pg (25-34); MEAN CORPUSCULAR HGB CONC 33.3 g/dl (32-36); MEAN PLATELET VOLUME 10.6 fL (7.4-10.4); PLATELET COUNT 368 K/uL (130-400); RED BLOOD COUNT 3.42 M/uL (4.7-6.1); WHITE BLOOD COUNT 14.97 K/uL (4.8-10.8)
[2017-07-08 06:48] LABS: PROTHROMBIN TIME (PATIENT) 43.2 SECONDS (9.0-12.0)
[2017-07-08 07:08] LABS: CALCIUM 7.8 mg/dl (8.5-10.1); CREATININE 1.06 mg/dl (0.60-1.40); POTASSIUM 4.2 mmol/L (3.5-5.1)
[2017-07-08 07:11] LABS: INR 4.2 (0.9-1.1)
[2017-07-08] MEDS: RASPBERRY SYRUP 5 ML UDP PO SCH ×4 (08:49→21:59)
[2017-07-08] MEDS: METOPROLOL TARTRATE 50 MG TAB PO SCH ×2 (08:49→22:00)
[2017-07-08] MEDS: LISINOPRIL 2.5 MG TAB PO SCH (08:49)
[2017-07-08] MEDS: VANCOMYCIN HCL 125 MG/2.5ML SOLN PO SCH ×4 (08:50→21:59)
[2017-07-08] MEDS: OSELTAMIVIR PHOSPHATE SUSP 30 MG/5 ML UDP PO SCH ×2 (08:50→21:59)
[2017-07-08] MEDS: ASPIRIN 81 MG ECTAB PO SCH (08:50)
--- NOTE | 2017-07-08 09:43 | Gastrointestinal Consultation ---
Gastrointestinal Consultation Date of Consultation: Jul 08, 2017 Attending Physician: Aminata Consulting Physician: Venkatesh Reason for Consultation: SBO, ?mass History of Present Illness Patient is a 76 year old male w/ history of a-fib s/p pacemaker 03/2017 on ASA and coumadin w/ others listed below who presented through the ED for evaluation of weakness, fatigue, fever. Pt was seen and evaluated, chart reviewed. at bedside. Pt notes he was recently in ED, diagnosed with UTI an dwas started on clindamycin, had reaction to ABX and was changed to cefdinir. Developed severe diarrhea w/ abdominal pain/cramping and was seen by PCP who checked stool for c.diff, was positive and was started on a course of Flagyl 06/21/17. Notes diarrheal symptoms were improving, but felt weak, fatigued and had a fever [address] w/o contrast with mesenteric nodule in the cecum, blood/ urine culture w/ gram negative bacilli & influenza B co-infection. Was started on PO vanco due to need of other ABX. Notes he is no longer having any abd pain , and diarrhea is resolving. He had three bm's yesterday, soft. This AM he had one BM, semi-formed, brown. No black or bloody stools. Repeat CT yesterday was concerning for partially calcified mass of right lower quadrant mesentery adjacent to ileocecal valve, suspicious for ileal carcinoid tumor. There was mention of thickening of the terminal ileum, no SBO. Notes he had a colonoscopy 10 years ago w/ benign polyp. Was due for repeat colonoscopy this year. No history of flushing, chronic diarrhea. Today, he feels well. No fever, chills, CP, SOB. No history of weight loss. He was evaluated by surgery who recommended colonoscopy. CT ABD/Pelvis w/ contrast 07/07/17: Enhancing spiculated partially calcified mass of the right lower quadrant mesentery adjacent to the ileocecal valve causes tethering of the adjacent mesentery and measures up to 3.0 cm, very suspicious for ileal carcinoid tumor. Additionally, there is associated wall thickening of the terminal ileum with minimal fluid distention noted proximally. No bowel obstruction. Surgical consultation recommended. Interval development of a large intramuscular hematoma of the right iliacus and iliopsoas musculature measuring up to 20.4 cm in length. Low attenuating lesions of the liver are too small to characterize, largest of which measures up to 7 mm within the posterior right hepatic lobe. Prostamegaly with possible cystitis. CT ABD/Pelvis w/o contrast 07/04/17: No evidence of bowel obstruction. No evidence of free air. Normal appendix. Diverticulosis. No evidence of acute diverticulitis. Submucosal fat hypertrophy within the cecum. No evidence of significant active colitis on this noncontrast study. 6.6 cm left renal cyst. No renal or ureteral calculi identified. Bilateral perinephric stranding. 17 mm calcified mesenteric nodule adjacent to the cecum. This a nonspecific finding which likely is secondary to either a carcinoid tumor or postinflammatory calcification Mildly enlarged left paraaortic lymph node. Mild prostamegaly Nonspecific 7 mm hypodensity within the right hepatic lobe Chest XR 07/04/17: No acute cardiopulmonary findings. Colonoscopy 10/19/07: A 2 mm polyp in the sigmoid colon. Resected and retrieved. Diverticulosis sigmoid colon. Internal medium-sized hemorrhoids were found. The exam was otherwise normal to the cecum. Past Medical/Surgical History Medical Problems: (1) Acute renal failure Status: Acute (2) C. difficile colitis Status: Acute (3) Dehydration Status: Acute (4) Elevated INR Status: Acute (5) Urinary tract infection Status: Acute Past Medical History: Atrial fibrillation on ASA and coumadin, PE, HTN, Dyslipidemia, hypothyroidism , Vit d deficiency Past Surgical History: Colonoscopy, cardiac pacemaker, tonsillectomy and adenoidectomy Family History Diabetes mellitus MOTHER BROTHER FH: cancer FATHER (possible liver CA) GRANDMOTHER (possible lung CA) Hypertension FATHER Stroke GRANDMOTHER Social History Smoking Status: Former Smoker Alcohol Use: occasionally Drug Use: none Marital Status: Housing Status: lives with family Occupation Status: retired Allergies Coded Allergies: Clindamycin (Verified Allergy, Unknown, UNKNOWN, 07/04/17) Penicillins (Verified Allergy, Unknown, "happened as a child, not sure of reaction", 07/04/17) Uncoded Allergies: PEROXID (Allergy, Severe, SEVERE RASH, 03/29/17) Current Medications Home Meds and Scripts Medications Dose Route/Sig Max Daily Dose Days Date Category Dose Instructions Flagyl (Metronidazole) 500 Mg Tab 500 Mg PO BID 14 07/04/17 Reported day 13 was 12/3 Lisinopril 2.5 Mg Tab 2.5 Mg PO DAILY 06/01/17 Reported Synthroid (Levothyroxine Sodium) 50 Mcg Tab 50 Mcg PO DAILY 06/01/17 Reported Lopressor (Metoprolol Tartrate) 50 Mg Tab 25 Mg PO BID 06/01/17 Reported Jantoven (Warfarin Sodium) 5 Mg Tab 5 Mg PO WED 06/01/17 Reported Jantoven (Warfarin Sodium) 5 Mg Tab 7.5 Mg PO 6XWK 06/01/17 Reported TAKE ALL DAYS EXCEPT TUE Vitamin D 1000 Unit (Cholecalciferol) 1,000 Unit Cap 1,000 Inter.unit PO DAILY 06/01/17 Reported Caltrate 600 Plus (Calcium Carbonate-Vitamin D W/) 1 Tab Tab 1 Tab PO DAILY 06/01/17 Reported Aspirin Ec (Aspirin) 81 Mg Tab 81 Mg PO DAILY 06/01/17 Reported Lipitor (Atorvastatin Calcium) 40 Mg Tab 40 Mg PO QPM 07/21/11 Reported Review of Systems Constitutional: No fever, No chills Respiratory: No cough Cardiac: No chest pain Abdomen: No pain, No nausea, No vomiting, No diarrhea Physical Exam Date Time Temp Pulse Resp B/P (MAP) Pulse Ox O2 Delivery O2 Flow Rate FiO2 07/08/17 07:38 37.0 103 18 113/81 (92) 97 Room Air 07/08/17 04:00 Room Air 07/08/17 04:00 37.0 102 16 127/87 (100) 97 Room Air 07/08/17 00:05 Room Air 07/07/17 23:15 37.7 92 22 131/95 (107) 93 Room Air 07/07/17 20:00 Room Air 07/07/17 19:36 37.3 106 22 143/91 (108) 97 Room Air 07/07/17 16:00 Room Air 07/07/17 15:37 37.3 18 137/97 (110) 98 Room Air 07/07/17 11:58 37.2 105 18 133/97 (109) 97 Room Air 07/07/17 10:00 Room Air General Appearance: no apparent distress Eyes: PERRL ENT: hearing grossly normal Neck: supple Respiratory/Chest: lungs clear, normal breath sounds Cardiovascular: regular rate, rhythm Abdomen: normal bowel sounds, non tender, soft Extremities: non-tender Neurologic/Psych: alert, normal mood/affect, oriented x 3 Skin: normal color, warm/dry Laboratory Results Last 24 Hours Test 07/08/17 06:09 White Blood Count 14.97 K/uL Red Blood Count 3.42 M/uL Hemoglobin 11.1 g/dL Hematocrit 33.3 % Mean Corpuscular Volume 97.4 fL Mean Corpuscular Hemoglobin 32.5 pg Mean Corpuscular Hemoglobin Concent 33.3 g/dl RDW Standard Deviation 54.2 fL RDW Coefficient of Variation 15.2 % Platelet Count 368 K/uL Mean Platelet Volume 10.6 fL Prothrombin Time 43.2 SECONDS Prothromb Time International Ratio 4.2 Sodium Level 141 mmol/L Potassium Level 4.2 mmol/L Chloride Level 113 mmol/L Carbon Dioxide Level 23 mmol/L Anion Gap 5.0 mmol/L Blood Urea Nitrogen 28 mg/dl Creatinine 1.06 mg/dl Est Creatinine Clear Calc Drug Dose 66.1 ml/min Estimated GFR () 79.2 Estimated GFR (Non- 68.3 BUN/Creatinine Ratio 26.0 Random Glucose 108 mg/dl Calcium Level 7.8 mg/dl Impression Patient is a 76 year old male w/ 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 Sepsis secondary to UTI, influenzae, recent c.diff infection w/ completion of PO Flagyl and course of vancomycin. Plan - Continue vancomycin 125 QID - Florastor 1 tab once daily x 2 months - Would advise limiting use of other ABX unless indicated - 24H urine 5-HIAA - Ok for ASA - No coumadin, will need INR under 2 - e.coli sepsis - daily LFTs - Plan for Colonoscopy on Tuesday - Please keep NPO after midnight - Please prep with 119 gm miralax at 1700, 20 mg dulcolax at 1700 and 119 gm miralax at 2100 GI will follow, please call with questions or concerns. I saw and evaluated the patient. We are consult at for evaluation of an abnormal-appearing CT scan. Of note the patient has been in the hospital for several days with gram-negative heri sepsis presumed to be related to a urinary source. A CT scan was obtained from the abdomen which showed evidence of a masslike area in his terminal ileum. He did have a prior colonoscopy 8 or 9 years ago notable for small hyperplastic polyp. His more recent history is notable for urinary tract infection for which she was treated with a short course of antibiotics. Unfortunately the patient did develop C. difficile infection and is presently on vancomycin. He denies having diarrhea at this time. Physical examination No obvious distress No scleral icterus Impression: Patient presents with gram-negative heri sepsis thought to be a urinary etiology. Given the elevated AST nail TI would suggest further evaluation of his bile duct gallbladder with a right upper quadrant ultrasound. We will plan to do a colonoscopy early next week to evaluate the suspected mass in the terminal ileum. Recommendations Right upper quadrant ultrasound Colonoscopy on Tuesday, bowel preparation be written Chromogranin A level Please call with any questions or concerns over the weekend
--- NOTE | 2017-07-08 10:17 | Progress Note ---
Subjective Date of Service: Jul 08, 2017. Subjective Pt evaluation today including: conversation w/ patient, conversation w/ family , physical exam, chart review, lab review pt remains on IV ctx and po tamiflu. remains in droplet. on vanco po for previous diagnosis of c diff, s/p oneal as outpt. tolerating abx, no n/v/d. breathing better, no cough, no sob, no cp. no f/c. no gu complaints. had repeat ct yesterday and found to have spiculated mass at ileum, gi eval pending. also noted to have large hematoma - hbg 11 today, INR improving, 4.2 today. Overall feeling better, awaiting plans for workup of gi mass. All remaining ros reviewed and are negative. Problem List Medical Problems: (1) Acute renal failure Status: Acute (2) C. difficile colitis Status: Acute (3) Dehydration Status: Acute (4) Elevated INR Status: Acute (5) Urinary tract infection Status: Acute Objective Vital Signs Date Time Temp Pulse Resp B/P (MAP) Pulse Ox O2 Delivery O2 Flow Rate FiO2 07/08/17 07:38 37.0 103 18 113/81 (92) 97 Room Air 07/08/17 04:00 Room Air 07/08/17 04:00 37.0 102 16 127/87 (100) 97 Room Air 07/08/17 00:05 Room Air 07/07/17 23:15 37.7 92 22 131/95 (107) 93 Room Air 07/07/17 20:00 Room Air 07/07/17 19:36 37.3 106 22 143/91 (108) 97 Room Air 07/07/17 16:00 Room Air 07/07/17 15:37 37.3 18 137/97 (110) 98 Room Air 07/07/17 11:58 37.2 105 18 133/97 (109) 97 Room Air Physical Exam General Appearance: WD/WN, no apparent distress Eyes: normal inspection, EOMI Neck: supple Respiratory/Chest: lungs clear, normal breath sounds, no respiratory distress Cardiovascular: regular rate, rhythm, no edema Abdomen: non tender, soft Extremities: non-tender, no pedal edema Neurologic/Psychiatric: alert, oriented x 3 Skin: normal color, no rash Laboratory Results Item Value Date Time Blood Culture - Final Complete 07/04/17 1645 Blood Escherichia Coli Blood Culture - Final Complete 07/04/17 1638 Blood Escherichia Coli Urine Culture - Final Complete 07/04/17 1543 Urine , Clean Catch Escherichia Coli Last 24 Hours Test 07/08/17 06:09 White Blood Count 14.97 K/uL Red Blood Count 3.42 M/uL Hemoglobin 11.1 g/dL Hematocrit 33.3 % Mean Corpuscular Volume 97.4 fL Mean Corpuscular Hemoglobin 32.5 pg Mean Corpuscular Hemoglobin Concent 33.3 g/dl RDW Standard Deviation 54.2 fL RDW Coefficient of Variation 15.2 % Platelet Count 368 K/uL Mean Platelet Volume 10.6 fL Prothrombin Time 43.2 SECONDS Prothromb Time International Ratio 4.2 Sodium Level 141 mmol/L Potassium Level 4.2 mmol/L Chloride Level 113 mmol/L Carbon Dioxide Level 23 mmol/L Anion Gap 5.0 mmol/L Blood Urea Nitrogen 28 mg/dl Creatinine 1.06 mg/dl Est Creatinine Clear Calc Drug Dose 66.1 ml/min Estimated GFR () 79.2 Estimated GFR (Non- 68.3 BUN/Creatinine Ratio 26.0 Random Glucose 108 mg/dl Calcium Level 7.8 mg/dl Assessment and Plan (1) E. coli septicemia Assessment & Plan: continue ctx for now. Upon d/c can change to keflex 500mg po tid x 14 days. repeat cultures pending. (2) UTI (urinary tract infection) (3) Influenza B Assessment & Plan: continue tamiflu x 5 days, maintain droplet precautions (4) C. difficile colitis Assessment & Plan: diagnosed as outpt was treated with oneal. symptoms resolved but will require additional treatment for e. coli infection, would continue po vanco while on abx for E. coli bsi. (5) Leukocytosis Assessment & Plan: likely multifactorial - infection, blood loss/hematoma, now with mass in ileum, gi workup pending.
[2017-07-08] MEDS ORDERED: BISACODYL 5 MG TABEC PO ONE ×2 (17:00)
[2017-07-08] MEDS ORDERED: POLYETHYLENE (MIRALAX) 17 GM PACK PO ONE ×2 (17:00→21:00)
[2017-07-08] MEDS: CEFTRIAXONE SOD INJ 1 GM in DEXTROSE 5% ADD-VANTAGE 50ML 50 ML IV SCH (18:17)
--- NOTE | 2017-07-08 19:30 | Progress Note ---
Medicine Progress Note Date & Time of Visit: Jul 08, 2017 at 19:30. Subjective Patient feels ok, right abdominal and groin pain seems to be unchanged. No overnight events noted. Still occasionally tachycardic on monitor, more so with activity. Denies any symptoms of worsening cough, SOB, chest pain. at the bedside and updated. Objective Last 8 Hrs Date Time Temp Pulse Resp B/P (MAP) Pulse Ox O2 Delivery O2 Flow Rate FiO2 07/08/17 16:00 97 Room Air 07/08/17 16:00 37.0 101 18 103/75 (84) 97 Room Air 07/08/17 12:00 Room Air 07/08/17 11:47 36.8 87 18 115/76 (89) 95 Room Air Physical Exam: GENERAL: Patient is in no acute distress. HEENT: No acute trauma, normocephalic, mucous membranes moist, no nasal congestion, no scleral icterus. Conjunctivae clear. NECK: No stridor, trachea is midline. LUNGS: Clear to auscultation bilaterally, no wheeze, no rhonchi, breath sounds equal. HEART: Without murmurs gallops or rubs, irregularly irregular ABDOMEN: Soft, mildly tender RLQ, bowel sounds positive, no hepatosplenomegaly EXTREMITIES: No cyanosis or edema NEUROLOGIC: Oriented x 3, no acute motor or sensory deficits, no focal weakness. SKIN: No rash, no jaundice, no diaphoresis. Laboratory Results: Last 24 Hours Test 07/08/17 06:09 07/08/17 12:25 White Blood Count 14.97 K/uL Red Blood Count 3.42 M/uL Hemoglobin 11.1 g/dL Hematocrit 33.3 % Mean Corpuscular Volume 97.4 fL Mean Corpuscular Hemoglobin 32.5 pg Mean Corpuscular Hemoglobin Concent 33.3 g/dl RDW Standard Deviation 54.2 fL RDW Coefficient of Variation 15.2 % Platelet Count 368 K/uL Mean Platelet Volume 10.6 fL Prothrombin Time 43.2 SECONDS Prothromb Time International Ratio 4.2 Sodium Level 141 mmol/L Potassium Level 4.2 mmol/L Chloride Level 113 mmol/L Carbon Dioxide Level 23 mmol/L Anion Gap 5.0 mmol/L Blood Urea Nitrogen 28 mg/dl Creatinine 1.06 mg/dl Est Creatinine Clear Calc Drug Dose 66.1 ml/min Estimated GFR () 79.2 Estimated GFR (Non- 68.3 BUN/Creatinine Ratio 26.0 Random Glucose 108 mg/dl Calcium Level 7.8 mg/dl Total Bilirubin 0.7 mg/dl Direct Bilirubin 0.2 mg/dl Aspartate Amino Transf (AST/SGOT) 148 U/L Alanine Aminotransferase (ALT/SGPT) 122 U/L Alkaline Phosphatase 132 U/L Total Protein 6.0 gm/dl Albumin 1.9 gm/dl Assessment & Plan SEPSIS: -secondary to UTI and influenza B co-infection; CT scan mentions enlarged prostate with inflammatory changes consider possibility of prostatitis -urine and 2 out of 2 blood cultures showing E. coli, diallo-sensitive -presented with elevated procalcitonin/lactate, leukocytosis, tachycardia, hypotension and KRISTOPHER -WBCs trending down -HR has been slightly more elevated today during exertion but fairly well controlled at rest -BP improved and stable following fluids -CXR negative -ID consulted, appreciate recs -recently completed 14 days of flagyl for c-diff; diarrhea has since resolved; was placed on PO vanco on admission due to expected prolonged course of abx -CT abd/pelvis report: 1. No evidence of bowel obstruction. No evidence of free air. 2. Normal appendix. Diverticulosis. No evidence of acute diverticulitis. 3. No evidence of significant active colitis on this noncontrast study. 4. 6.6 cm left renal cyst. No renal or ureteral calculi identified. Bilateral perinephric stranding. 5. 17 mm calcified mesenteric nodule adjacent to the cecum. This a nonspecific finding which likely is secondary to either a carcinoid tumor or postinflammatory calcification. 6. Mildly enlarged left paraaortic lymph node. 7. Mild prostamegaly. 8. Nonspecific 7 mm hypodensity within the right hepatic lobe. 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: resolved -Cr 2.4 on admission, trending down to 1.06 (last baseline 06/01/17 - 1.25) -most likely prerenal related to sepsis and hypovolemia; improving after fluids -no kidney stone noted on CT scan but mention of b/l perinephric stranding -NSS IV stopped now as tolerating PO and KRISTOPHER resolved -avoid nephrotoxic agents when able SUPRATHERAPEUTIC INR: -INR>10 on admission, has been given vitamin K several days; INR 4.2 today, repeat vitamin K dose tonight; goal is to get INR under 2 for colonoscopy Tuesday -no active bleeding noted other than the intramuscular hematoma -holding coumadin -INR daily -likely elevated with recent concurrent flagyl use INTRAMUSCULAR HEMATOMA: -patient with a large intramuscular hematoma of the right iliacus and iliopsoas musculature measuring up to 20.4 cm in length -monitor H&H closely -continue to reverse anticoagulation and reduce INR A-FIB: with RVR on admission -known chronic a-fib -on metoprolol -coumadin held for elevated INR -HR was elevated from sepsis, improved following fluids -holding coumadin as supra therapeutic -continue metoprolol, dose titrated up to achieve better control -Cardiology consulted HYPOTHYROIDISM: -continue levothyroxine HYPERLIPIDEMIA: -continue atorvastatin MESENTERIC MASS: -CT abd/pelvis 17 mm calcified mesenteric nodule adjacent to the cecum. This a nonspecific finding which likely is secondary to either a carcinoid tumor or postinflammatory calcification. -this appears as a 3 cm mass on contrast CT; highly suspicious for malignancy -General Surgery consulted, recommended GI to obtain biopsy and surgery to follow up as outpatient -GI consulted, planning for endoscopy on Tuesday if INR can be lowered below 2 -CT abd/pelvis: CT with IV contrast report: 1. Enhancing spiculated partially calcified mass of the right lower quadrant mesentery adjacent to the ileocecal valve causes tethering of the adjacent mesentery and measures up to 3.0 cm, very suspicious for ileal carcinoid tumor. Additionally, there is associated wall thickening of the terminal ileum with minimal fluid distention noted proximally. No bowel obstruction. Surgical consultation recommended. 2. Interval development of a large intramuscular hematoma of the right iliacus and iliopsoas musculature measuring up to 20.4 cm in length. 3. Low attenuating lesions of the liver are too small to characterize, largest of which measures up to 7 mm within the posterior right hepatic lobe. 4. Prostamegaly with possible cystitis. Current Inpatient Medications: Current Inpatient Medications Medications (Trade) Dose Ordered Sig/Guillermina Route Start Time Stop Time Status Last Admin Dose Admin Acetaminophen (Tylenol Tab) 650 mg Q4H PRN PO 07/04/17 16:30 08/03/17 16:29 07/05/17 21:01 650 MG Aspirin (Ecotrin Tab) 81 mg DAILY PO 07/05/17 09:00 08/04/17 08:59 07/08/17 08:50 81 MG Atorvastatin Calcium (Lipitor Tab) 40 mg QPM PO 07/04/17 21:00 08/03/17 20:59 07/07/17 21:17 40 MG Levothyroxine Sodium (Synthroid Tab) 50 mcg DAILYBB PO 07/05/17 06:00 08/04/17 05:59 07/08/17 05:36 50 MCG Lisinopril (Zestril Tab) 2.5 mg DAILY PO 07/05/17 09:00 08/04/17 08:59 07/08/17 08:49 2.5 MG Ceftriaxone Sodium 1 gm/ Dextrose 50 ml @ 100 mls/hr Q24H IV 07/04/17 18:00 07/14/17 17:59 07/08/17 18:17 100 MLS/HR Vancomycin HCl (Vancomycin Oral Soln) 125 mg QID PO 07/04/17 21:00 07/18/17 20:59 07/08/17 17:02 125 MG Raspberry (Raspberry Syrup 5ml Cup) 5 ml QID PO 07/04/17 21:00 07/18/17 20:59 07/08/17 17:02 5 ML Oseltamivir Phosphate (Tamiflu Susp) 30 mg BID PO 07/05/17 21:00 07/10/17 20:59 07/08/17 08:50 30 MG Metoprolol Tartrate (Lopressor Tab) 50 mg BID PO 07/07/17 21:00 08/03/17 20:59 07/08/17 08:49 50 MG Ioversol (Optiray 320) 100 ml UD PRN IV 07/07/17 13:30 07/11/17 13:29 Bisacodyl (Dulcolax Tab) 20 mg 1700 ONCE PO 07/10/17 17:00 07/10/17 17:01 Polyethylene (Miralax Powder Packet) 119 gm 1700 ONCE PO 07/10/17 17:00 07/10/17 17:01 Polyethylene (Miralax Powder Packet) 119 gm 2100 ONCE PO 07/10/17 21:00 07/10/17 21:01
[2017-07-08] MEDS ORDERED: PHYTONADIONE 5 MG TAB PO ONE (19:45)
--- NOTE | 2017-07-08 21:15 | DIAGNOSTIC IMAGING REPORT ---
(LIVER) ABDOMEN LIMITED HISTORY: 76 years-old Male elevated LFTs COMPARISON: Ultrasound 07/07/2017 TECHNIQUE: Multiple real-time sonographic images of the abdominal right upper quadrant were obtained assessing grayscale appearance and color flow FINDINGS: Pancreas is obscured by bowel gas. Heterogeneous appearance of the liver is noted without focal mass identified. Liver measures up to 16.3 cm. No contour nodularity the liver identified. Common bile duct measures 5 mm. No intrahepatic biliary ductal dilation. The gallbladder is mildly contracted without shadowing cholelithiasis, wall thickening or pericholecystic fluid collections. Right kidney demonstrates no hydronephrosis. IMPRESSION: 1. Nonspecific mildly heterogeneous appearance of the liver without focal mass lesion identified. 2. No biliary ductal dilation. 3. Partially contracted gallbladder. The above report was generated using voice recognition software. It may contain grammatical, syntax or spelling errors. Electronically signed by: Zaire Wong M.D. 07/08/2017 9:13 PM Dictated Date/Time: 07/08/2017 9:10 PM
[2017-07-08] MEDS: ATORVASTATIN 40 MG TAB PO SCH (22:00)
[2017-07-09] VITALS (10 sets, daily range): BP systolic 112–132; BP diastolic 75–97; PULSE 90–109; TEMP 36.4–36.7; O2SAT 96–100
[2017-07-09] MEDS: LEVOTHYROXINE 50 MCG TAB PO SCH (06:11)
[2017-07-09 06:32] LABS: HEMATOCRIT 33.2 % (42-52); MEAN CELL VOLUME 97.4 fL (80-100); MEAN CORPUSCULAR HEMOGLOBIN 33.1 pg (25-34); MEAN PLATELET VOLUME 10.4 fL (7.4-10.4); PLATELET COUNT 422 K/uL (130-400); RED BLOOD COUNT 3.41 M/uL (4.7-6.1); WHITE BLOOD COUNT 12.83 K/uL (4.8-10.8)
[2017-07-09 06:37] LABS: INR 2.6 (0.9-1.1); PROTHROMBIN TIME (PATIENT) 26.8 SECONDS (9.0-12.0)
[2017-07-09 07:09] LABS: BUN/CREATININE RATIO 28.3 (10-20); CALCIUM 7.9 mg/dl (8.5-10.1); CREATININE 1.06 mg/dl (0.60-1.40); POTASSIUM 4.6 mmol/L (3.5-5.1)
[2017-07-09 07:11] LABS: ALB/GLOB RATIO 0.4 (0.9-2)
[2017-07-09] MEDS: ASPIRIN 81 MG ECTAB PO SCH (07:54)
[2017-07-09] MEDS: METOPROLOL TARTRATE 50 MG TAB PO SCH ×2 (07:54→21:55)
[2017-07-09] MEDS: RASPBERRY SYRUP 5 ML UDP PO SCH ×4 (07:54→21:54)
[2017-07-09] MEDS: OSELTAMIVIR PHOSPHATE SUSP 30 MG/5 ML UDP PO SCH ×2 (07:55→21:55)
[2017-07-09] MEDS: VANCOMYCIN HCL 125 MG/2.5ML SOLN PO SCH ×4 (07:55→21:54)
[2017-07-09] MEDS: LISINOPRIL 2.5 MG TAB PO SCH (07:55)
[2017-07-09] MEDS ORDERED: PHYTONADIONE 5 MG TAB PO STA (16:05)
[2017-07-09] MEDS: CEFTRIAXONE SOD INJ 1 GM in DEXTROSE 5% ADD-VANTAGE 50ML 50 ML IV SCH (17:38)
[2017-07-09] MEDS ORDERED: METOPROLOL TARTRATE 1 MG/ML VIAL IV STA (17:41)
[2017-07-09] MEDS ORDERED: SODIUM CHLORIDE 0.9% 500ML 500 ML IV SCH (17:45)
--- NOTE | 2017-07-09 17:53 | Progress Note ---
Medicine Progress Note Date & Time of Visit: Jul 09, 2017 at 17:48. Subjective Patient doing well, was concerned that he was placed on a clear liquids diet today instead of tomorrow. Also has developed a pruritic rash on his back which appears very similar to the reaction he had to clindamycin. No overnight events noted. Had a normal BM today. Ambulating without difficulty. Objective Last 8 Hrs Date Time Temp Pulse Resp B/P (MAP) Pulse Ox O2 Delivery O2 Flow Rate FiO2 07/09/17 15:29 36.5 90 20 112/78 (89) 98 Room Air 07/09/17 12:00 36.5 95 22 120/82 (95) 100 Room Air 07/09/17 12:00 97 Room Air Physical Exam: GENERAL: Patient is in no acute distress. HEENT: No acute trauma, normocephalic, mucous membranes moist, no nasal congestion, no scleral icterus. Conjunctivae clear. NECK: No stridor, trachea is midline. LUNGS: Clear to auscultation bilaterally, no wheeze, no rhonchi, breath sounds equal. HEART: Without murmurs gallops or rubs, irregularly irregular ABDOMEN: Soft, mildly tender RLQ, bowel sounds positive, no hepatosplenomegaly EXTREMITIES: No cyanosis or edema NEUROLOGIC: Oriented x 3, no acute motor or sensory deficits, no focal weakness. SKIN: No rash, no jaundice, no diaphoresis. Laboratory Results: Last 24 Hours Test 07/08/17 21:00 07/09/17 06:06 07/09/17 11:29 White Blood Count 12.83 K/uL Red Blood Count 3.41 M/uL Hemoglobin 11.3 g/dL Hematocrit 33.2 % Mean Corpuscular Volume 97.4 fL Mean Corpuscular Hemoglobin 33.1 pg Mean Corpuscular Hemoglobin Concent 34.0 g/dl RDW Standard Deviation 53.4 fL RDW Coefficient of Variation 15.1 % Platelet Count 422 K/uL Mean Platelet Volume 10.4 fL Prothrombin Time 26.8 SECONDS Prothromb Time International Ratio 2.6 Sodium Level 140 mmol/L Potassium Level 4.6 mmol/L Chloride Level 111 mmol/L Carbon Dioxide Level 26 mmol/L Anion Gap 3.0 mmol/L Blood Urea Nitrogen 30 mg/dl Creatinine 1.06 mg/dl Est Creatinine Clear Calc Drug Dose 66.1 ml/min Estimated GFR () 79.2 Estimated GFR (Non- 68.3 BUN/Creatinine Ratio 28.3 Random Glucose 104 mg/dl Calcium Level 7.9 mg/dl Total Bilirubin 0.8 mg/dl Aspartate Amino Transf (AST/SGOT) 256 U/L Alanine Aminotransferase (ALT/SGPT) 201 U/L Alkaline Phosphatase 139 U/L Total Protein 5.9 gm/dl Albumin 1.8 gm/dl Globulin 4.1 gm/dl Albumin/Globulin Ratio 0.4 Bedside Glucose 102 mg/dl Assessment & Plan SEPSIS: -secondary to UTI and influenza B co-infection; CT scan mentions enlarged prostate with inflammatory changes consider possibility of prostatitis -urine and 2 out of 2 blood cultures showing E. coli, diallo-sensitive -presented with elevated procalcitonin/lactate, leukocytosis, tachycardia, hypotension and KRISTOPHER -WBCs trending down -HR has been slightly more elevated today during exertion but fairly well controlled at rest -BP improved and stable following fluids -CXR negative -ID consulted, appreciate recs -recently completed 14 days of flagyl for c-diff; diarrhea has since resolved; was placed on PO vanco on admission due to expected prolonged course of abx -CT abd/pelvis report: 1. No evidence of bowel obstruction. No evidence of free air. 2. Normal appendix. Diverticulosis. No evidence of acute diverticulitis. 3. No evidence of significant active colitis on this noncontrast study. 4. 6.6 cm left renal cyst. No renal or ureteral calculi identified. Bilateral perinephric stranding. 5. 17 mm calcified mesenteric nodule adjacent to the cecum. This a nonspecific finding which likely is secondary to either a carcinoid tumor or postinflammatory calcification. 6. Mildly enlarged left paraaortic lymph node. 7. Mild prostamegaly. 8. Nonspecific 7 mm hypodensity within the right hepatic lobe. 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 -Cr 2.4 on admission, trending down to 1.06 (last baseline 06/01/17 - 1.25) -most likely prerenal related to sepsis and hypovolemia; improving after fluids -no kidney stone noted on CT scan but mention of b/l perinephric stranding -NSS IV stopped now as tolerating PO and KRISTOPHER resolved -avoid nephrotoxic agents when able SUPRATHERAPEUTIC INR: -INR>10 on admission, has been given vitamin K several days; INR 2.6 today, repeat vitamin K dose tonight; goal is to get INR under 2 for colonoscopy Tuesday -no active bleeding noted other than the intramuscular hematoma -holding coumadin -INR daily -likely elevated with recent concurrent flagyl use INTRAMUSCULAR HEMATOMA: -patient with a large intramuscular hematoma of the right iliacus and iliopsoas musculature measuring up to 20.4 cm in length -monitor H&H closely; was initially 13, fell to 11 and has remained in the 11 range for the last 3 days -continue to reverse anticoagulation and reduce INR A-FIB: with RVR on admission -known chronic a-fib -on metoprolol -coumadin held for elevated INR -HR was elevated from sepsis, improved following fluids -holding coumadin as supra therapeutic -continue metoprolol, dose titrated up to achieve better control -Cardiology consulted, if HR remains elevated can further increase the metoprolol HYPOTHYROIDISM: -continue levothyroxine HYPERLIPIDEMIA: -continue atorvastatin MESENTERIC MASS: -CT abd/pelvis 17 mm calcified mesenteric nodule adjacent to the cecum. This a nonspecific finding which likely is secondary to either a carcinoid tumor or postinflammatory calcification. -this appears as a 3 cm mass on contrast CT; highly suspicious for malignancy -General Surgery consulted, recommended GI to obtain biopsy and surgery to follow up as outpatient -GI consulted, planning for endoscopy on Tuesday if INR can be lowered below 2 -CT abd/pelvis: CT with IV contrast report: 1. Enhancing spiculated partially calcified mass of the right lower quadrant mesentery adjacent to the ileocecal valve causes tethering of the adjacent mesentery and measures up to 3.0 cm, very suspicious for ileal carcinoid tumor. Additionally, there is associated wall thickening of the terminal ileum with minimal fluid distention noted proximally. No bowel obstruction. Surgical consultation recommended. 2. Interval development of a large intramuscular hematoma of the right iliacus and iliopsoas musculature measuring up to 20.4 cm in length. 3. Low attenuating lesions of the liver are too small to characterize, largest of which measures up to 7 mm within the posterior right hepatic lobe. 4. Prostamegaly with possible cystitis. Current Inpatient Medications: Current Inpatient Medications Medications (Trade) Dose Ordered Sig/Guillermina Route Start Time Stop Time Status Last Admin Dose Admin Acetaminophen (Tylenol Tab) 650 mg Q4H PRN PO 07/04/17 16:30 08/03/17 16:29 07/05/17 21:01 650 MG Aspirin (Ecotrin Tab) 81 mg DAILY PO 07/05/17 09:00 08/04/17 08:59 07/09/17 07:54 81 MG Atorvastatin Calcium (Lipitor Tab) 40 mg QPM PO 07/04/17 21:00 08/03/17 20:59 07/08/17 22:00 40 MG Levothyroxine Sodium (Synthroid Tab) 50 mcg DAILYBB PO 07/05/17 06:00 08/04/17 05:59 07/09/17 06:11 50 MCG Lisinopril (Zestril Tab) 2.5 mg DAILY PO 07/05/17 09:00 08/04/17 08:59 07/09/17 07:55 2.5 MG Vancomycin HCl (Vancomycin Oral Soln) 125 mg QID PO 07/04/17 21:00 07/18/17 20:59 07/09/17 17:37 125 MG Raspberry (Raspberry Syrup 5ml Cup) 5 ml QID PO 07/04/17 21:00 07/18/17 20:59 07/09/17 17:37 5 ML Oseltamivir Phosphate (Tamiflu Susp) 30 mg BID PO 07/05/17 21:00 07/10/17 20:59 07/09/17 07:55 30 MG Metoprolol Tartrate (Lopressor Tab) 50 mg BID PO 07/07/17 21:00 08/03/17 20:59 07/09/17 07:54 50 MG Ioversol (Optiray 320) 100 ml UD PRN IV 07/07/17 13:30 07/11/17 13:29 Bisacodyl (Dulcolax Tab) 20 mg 1700 ONCE PO 07/10/17 17:00 07/10/17 17:01 Polyethylene (Miralax Powder Packet) 119 gm 1700 ONCE PO 07/10/17 17:00 12/10/17 17:01 Polyethylene (Miralax Powder Packet) 119 gm 2100 ONCE PO 07/10/17 21:00 07/10/17 21:01 Triamcinolone Acetonide (Triamcinolone Acet 0.1% Crm) 1 appln BID PRN EXT 07/09/17 18:00 08/08/17 17:59 UNV
[2017-07-09] MEDS ORDERED: TRIAMCINOLONE ACET 0.1% CR 80 GM TUBE EXT PRN (18:30)
[2017-07-09] MEDS ORDERED: TRIAMCINOLONE ACET 0.1% CR 15 GM TUBE EXT PRN (19:45)
[2017-07-09] MEDS: CIPROFLOXACIN / D5W 400 MG in PREMIXED IN D5W 200 ML IV SCH (21:54)
[2017-07-09] MEDS: ATORVASTATIN 40 MG TAB PO SCH (21:55)
[2017-07-10] VITALS (9 sets, daily range): BP systolic 104–131; BP diastolic 68–94; PULSE 85–112; TEMP 36.4–37.3; O2SAT 97–100
[2017-07-10] MEDS: LEVOTHYROXINE 50 MCG TAB PO SCH (05:39)
[2017-07-10 05:51] LABS: HEMATOCRIT 32.6 % (42-52); MEAN CELL VOLUME 99.1 fL (80-100); MEAN CORPUSCULAR HEMOGLOBIN 32.8 pg (25-34); MEAN CORPUSCULAR HGB CONC 33.1 g/dl (32-36); MEAN PLATELET VOLUME 10.2 fL (7.4-10.4); PLATELET COUNT 477 K/uL (130-400); RED BLOOD COUNT 3.29 M/uL (4.7-6.1); WHITE BLOOD COUNT 12.81 K/uL (4.8-10.8)
[2017-07-10 06:14] LABS: INR 1.8 (0.9-1.1); PROTHROMBIN TIME (PATIENT) 18.4 SECONDS (9.0-12.0)
[2017-07-10 06:16] LABS: BUN/CREATININE RATIO 24.2 (10-20); CALCIUM 7.9 mg/dl (8.5-10.1); CREATININE 1.09 mg/dl (0.60-1.40); POTASSIUM 4.7 mmol/L (3.5-5.1)
[2017-07-10 06:19] LABS: ALB/GLOB RATIO 0.5 (0.9-2)
[2017-07-10] MEDS: CIPROFLOXACIN / D5W 400 MG in PREMIXED IN D5W 200 ML IV SCH ×2 (08:17→20:55)
[2017-07-10] MEDS: RASPBERRY SYRUP 5 ML UDP PO SCH ×4 (08:17→20:54)
[2017-07-10] MEDS: METOPROLOL TARTRATE 50 MG TAB PO SCH ×2 (08:18→20:51)
[2017-07-10] MEDS: LISINOPRIL 2.5 MG TAB PO SCH (08:18)
[2017-07-10] MEDS: ASPIRIN 81 MG ECTAB PO SCH (08:18)
[2017-07-10] MEDS: VANCOMYCIN HCL 125 MG/2.5ML SOLN PO SCH ×4 (08:19→20:54)
[2017-07-10] MEDS: OSELTAMIVIR PHOSPHATE SUSP 30 MG/5 ML UDP PO SCH (08:20)
[2017-07-10] MEDS ORDERED: POLYETHYLENE (MIRALAX) 17 GM PACK PO ONE ×2 (17:00→21:00)
[2017-07-10] MEDS ORDERED: BISACODYL 5 MG TABEC PO ONE (17:00)
[2017-07-10] MEDS ORDERED: SODIUM CHLORIDE 0.9% 1000ML 1,000 ML IV SCH (18:00)
--- NOTE | 2017-07-10 19:20 | Progress Note ---
Medicine Progress Note Date & Time of Visit: Jul 10, 2017 at 19:20. Subjective Patient doing ok, has been on clear liquids today which he is tolerating. Had an arrhythmia on monitor in AM which was wide complex tachycardia thought to be possible ventricular tachycardia. No symptoms of CP, SOB, palpitations, [place], dizziness or lightheadedness. No overnight events noted. Objective Last 8 Hrs Date Time Temp Pulse Resp B/P (MAP) Pulse Ox O2 Delivery O2 Flow Rate FiO2 07/10/17 16:00 Room Air 07/10/17 15:46 36.9 85 18 106/72 (83) 99 Room Air 07/10/17 12:00 97 Room Air 07/10/17 11:52 36.8 91 17 111/68 (82) 100 Room Air Physical Exam: GENERAL: Patient is in no acute distress. HEENT: No acute trauma, normocephalic, mucous membranes moist, no nasal congestion, no scleral icterus. Conjunctivae clear. NECK: No stridor, trachea is midline. LUNGS: Clear to auscultation bilaterally, no wheeze, no rhonchi, breath sounds equal. HEART: Without murmurs gallops or rubs, irregularly irregular ABDOMEN: Soft, mildly tender RLQ, bowel sounds positive, no hepatosplenomegaly EXTREMITIES: No cyanosis or edema NEUROLOGIC: Oriented x 3, no acute motor or sensory deficits, no focal weakness. SKIN: No rash, no jaundice, no diaphoresis. Laboratory Results: Last 24 Hours Test 07/10/17 05:40 White Blood Count 12.81 K/uL Red Blood Count 3.29 M/uL Hemoglobin 10.8 g/dL Hematocrit 32.6 % Mean Corpuscular Volume 99.1 fL Mean Corpuscular Hemoglobin 32.8 pg Mean Corpuscular Hemoglobin Concent 33.1 g/dl RDW Standard Deviation 53.8 fL RDW Coefficient of Variation 15.0 % Platelet Count 477 K/uL Mean Platelet Volume 10.2 fL Prothrombin Time 18.4 SECONDS Prothromb Time International Ratio 1.8 Sodium Level 139 mmol/L Potassium Level 4.7 mmol/L Chloride Level 109 mmol/L Carbon Dioxide Level 28 mmol/L Anion Gap 2.0 mmol/L Blood Urea Nitrogen 26 mg/dl Creatinine 1.09 mg/dl Est Creatinine Clear Calc Drug Dose 64.3 ml/min Estimated GFR () 76.5 Estimated GFR (Non- 66.0 BUN/Creatinine Ratio 24.2 Random Glucose 117 mg/dl Calcium Level 7.9 mg/dl Total Bilirubin 0.8 mg/dl Aspartate Amino Transf (AST/SGOT) 179 U/L Alanine Aminotransferase (ALT/SGPT) 181 U/L Alkaline Phosphatase 148 U/L Total Protein 5.9 gm/dl Albumin 1.9 gm/dl Globulin 4.0 gm/dl Albumin/Globulin Ratio 0.5 Assessment & Plan SEPSIS: -secondary to UTI and influenza B co-infection; CT scan mentions enlarged prostate with inflammatory changes consider possibility of prostatitis -urine and 2 out of 2 blood cultures showing E. coli, diallo-sensitive -presented with elevated procalcitonin/lactate, leukocytosis, tachycardia, hypotension and KRISTOPHER -WBCs trending down slowly -HR has been slightly more elevated during exertion but fairly well controlled at rest -BP improved and stable following fluids -CXR negative -ID consulted, appreciate recs -recently completed 14 days of flagyl for c-diff; diarrhea has since resolved; was placed on PO vanco on admission due to expected prolonged course of abx -CT abd/pelvis report: 1. No evidence of bowel obstruction. No evidence of free air. 2. Normal appendix. Diverticulosis. No evidence of acute diverticulitis. 3. No evidence of significant active colitis on this noncontrast study. 4. 6.6 cm left renal cyst. No renal or ureteral calculi identified. Bilateral perinephric stranding. 5. 17 mm calcified mesenteric nodule adjacent to the cecum. This a nonspecific finding which likely is secondary to either a carcinoid tumor or postinflammatory calcification. 6. Mildly enlarged left paraaortic lymph node. 7. Mild prostamegaly. 8. Nonspecific 7 mm hypodensity within the right hepatic lobe. 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 (last baseline 06/01/17 - 1.25) -most likely prerenal related to sepsis and hypovolemia; improved after fluids -no kidney stone noted on CT scan but mention of b/l perinephric stranding -NSS IV stopped as tolerating PO and KRISTOPHER resolved -avoid nephrotoxic agents when able SUPRATHERAPEUTIC INR: -INR>10 on admission, has been given vitamin K several days; INR 1.8 today; goal is to get INR under 2 for colonoscopy Tuesday -no active bleeding noted other than the intramuscular hematoma -holding coumadin -INR daily -likely elevated with recent concurrent flagyl use INTRAMUSCULAR HEMATOMA: -patient with a large intramuscular hematoma of the right iliacus and iliopsoas musculature measuring up to 20.4 cm in length -monitor H&H closely; was initially 13, fell to 11 and has remained 10.8 today -continue to reverse anticoagulation and reduce INR -will need to restart coumadin on discharge with discussion with Cardiology A-FIB: with RVR on admission -known chronic a-fib -on metoprolol -coumadin held for elevated INR -HR was elevated from sepsis, improved following fluids -holding coumadin as supra therapeutic -continue metoprolol, dose titrated up to achieve better control -Cardiology consulted, if HR remains elevated can further increase the metoprolol HYPOTHYROIDISM: -continue levothyroxine HYPERLIPIDEMIA: -continue atorvastatin MESENTERIC MASS: -CT abd/pelvis 17 mm calcified mesenteric nodule adjacent to the cecum. This a nonspecific finding which likely is secondary to either a carcinoid tumor or postinflammatory calcification. -this appears as a 3 cm mass on contrast CT; highly suspicious for malignancy -General Surgery consulted, recommended GI to obtain biopsy and surgery to follow up as outpatient -GI consulted, planning for colonoscopy tomorrow; on bowel prep tonight -CT abd/pelvis: CT with IV contrast report: 1. Enhancing spiculated partially calcified mass of the right lower quadrant mesentery adjacent to the ileocecal valve causes tethering of the adjacent mesentery and measures up to 3.0 cm, very suspicious for ileal carcinoid tumor. Additionally, there is associated wall thickening of the terminal ileum with minimal fluid distention noted proximally. No bowel obstruction. Surgical consultation recommended. 2. Interval development of a large intramuscular hematoma of the right iliacus and iliopsoas musculature measuring up to 20.4 cm in length. 3. Low attenuating lesions of the liver are too small to characterize, largest of which measures up to 7 mm within the posterior right hepatic lobe. 4. Prostamegaly with possible cystitis. Current Inpatient Medications: Current Inpatient Medications Medications (Trade) Dose Ordered Sig/Guillermina Route Start Time Stop Time Status Last Admin Dose Admin Acetaminophen (Tylenol Tab) 650 mg Q4H PRN PO 07/04/17 16:30 08/03/17 16:29 07/05/17 21:01 650 MG Aspirin (Ecotrin Tab) 81 mg DAILY PO 07/05/17 09:00 08/04/17 08:59 07/10/17 08:18 81 MG Atorvastatin Calcium (Lipitor Tab) 40 mg QPM PO 07/04/17 21:00 08/03/17 20:59 07/09/17 21:55 40 MG Levothyroxine Sodium (Synthroid Tab) 50 mcg DAILYBB PO 07/05/17 06:00 08/04/17 05:59 07/10/17 05:39 50 MCG Lisinopril (Zestril Tab) 2.5 mg DAILY PO 07/05/17 09:00 08/04/17 08:59 07/10/17 08:18 2.5 MG Vancomycin HCl (Vancomycin Oral Soln) 125 mg QID PO 07/04/17 21:00 07/18/17 20:59 07/10/17 17:00 125 MG Raspberry (Raspberry Syrup 5ml Cup) 5 ml QID PO 07/04/17 21:00 07/18/17 20:59 07/10/17 17:00 5 ML Oseltamivir Phosphate (Tamiflu Susp) 30 mg BID PO 07/05/17 21:00 07/10/17 20:59 07/10/17 08:20 30 MG Metoprolol Tartrate (Lopressor Tab) 50 mg BID PO 07/07/17 21:00 08/03/17 20:59 07/10/17 08:18 50 MG Ioversol (Optiray 320) 100 ml UD PRN IV 07/07/17 13:30 07/11/17 13:29 Polyethylene (Miralax Powder Packet) 119 gm 2100 ONCE PO 07/10/17 21:00 07/10/17 21:01 Ciprofloxacin/ Dextrose 400 mg/ Prmx 200 ml @ 100 mls/hr Q12 IV 07/09/17 21:00 07/19/17 20:59 07/10/17 08:17 100 MLS/HR Triamcinolone Acetonide (Kenalog 0.1% Cream) 1 appln BID PRN EXT 07/09/17 19:45 08/08/17 19:44 Sodium Chloride 1,000 ml @ 80 mls/hr [id number] IV 07/10/17 18:00 07/11/17 06:29 07/10/17 18:06 80 MLS/HR
[2017-07-10] MEDS: ATORVASTATIN 40 MG TAB PO SCH (20:56)
[2017-07-11] VITALS (9 sets, daily range): BP systolic 95–136; BP diastolic 61–87; PULSE 68–106; TEMP 36.4–36.9; O2SAT 97–100
[2017-07-11 05:45] LABS: HEMATOCRIT 32.6 % (42-52); MEAN CELL VOLUME 99.1 fL (80-100); MEAN CORPUSCULAR HEMOGLOBIN 32.8 pg (25-34); MEAN CORPUSCULAR HGB CONC 33.1 g/dl (32-36); PLATELET COUNT 473 K/uL (130-400); RED BLOOD COUNT 3.29 M/uL (4.7-6.1); WHITE BLOOD COUNT 14.59 K/uL (4.8-10.8)
[2017-07-11 05:50] LABS: INR 1.4 (0.9-1.1); PROTHROMBIN TIME (PATIENT) 14.7 SECONDS (9.0-12.0)
[2017-07-11] MEDS: LEVOTHYROXINE 50 MCG TAB PO SCH (05:54)
[2017-07-11 06:38] LABS: BUN/CREATININE RATIO 15.3 (10-20); CALCIUM 8.2 mg/dl (8.5-10.1); MAGNESIUM 1.8 mg/dl (1.8-2.4); POTASSIUM 4.4 mmol/L (3.5-5.1)
[2017-07-11] MEDS: ASPIRIN 81 MG ECTAB PO SCH (08:19)
[2017-07-11] MEDS: METOPROLOL TARTRATE 50 MG TAB PO SCH ×2 (08:19→21:24)
[2017-07-11] MEDS: CIPROFLOXACIN / D5W 400 MG in PREMIXED IN D5W 200 ML IV SCH ×2 (08:19→21:24)
[2017-07-11] MEDS: VANCOMYCIN HCL 125 MG/2.5ML SOLN PO SCH ×4 (08:20→21:22)
[2017-07-11] MEDS: RASPBERRY SYRUP 5 ML UDP PO SCH ×4 (08:20→21:22)
[2017-07-11] MEDS: LISINOPRIL 2.5 MG TAB PO SCH (08:20)
[2017-07-11] MEDS ORDERED: SODIUM CHLORIDE 0.9% 500ML 500 ML IV ONE (11:23)
--- NOTE | 2017-07-11 11:23 | Endo History and Physical ---
History & Physical Date of Service: Jul 11, 2017. Chief Complaint: Referring Physician: History of Present Illness patient with abnormal CT scan showing ? mass at TI, needs colonoscopy Past Surgical History Hx Cardiac Surgery: No Hx Abdominal Surgery: No Hx Post-Op Nausea and Vomiting: No Hx Cancer Surgery: No Hx Thoracic Surgery: No Hx Orthopedic: No Hx Urinary Tract Surgery: No Social History Smoking Status: Former Smoker Smokeless Tobacco Use: No Hx Substance Use: No Hx Alcohol Use: Yes (1 GLASS WINE OR BEER/DAY) Allergies Coded Allergies: Clindamycin (Verified Allergy, Unknown, UNKNOWN, 07/04/17) Penicillins (Verified Allergy, Unknown, "happened as a child, not sure of reaction", 07/04/17) Uncoded Allergies: PEROXID (Allergy, Severe, SEVERE RASH, 03/29/17) Current Medications Reported Home Medications Medications Dose Route/Sig Max Daily Dose Days Date Category Dose Instructions Flagyl (Metronidazole) 500 Mg Tab 500 Mg PO BID 14 07/04/17 Reported day 13 was 07/03 Lisinopril 2.5 Mg Tab 2.5 Mg PO DAILY 06/01/17 Reported Synthroid (Levothyroxine Sodium) 50 Mcg Tab 50 Mcg PO DAILY 06/01/17 Reported Lopressor (Metoprolol Tartrate) 50 Mg Tab 25 Mg PO BID 06/01/17 Reported Jantoven (Warfarin Sodium) 5 Mg Tab 5 Mg PO WED 06/01/17 Reported Jantoven (Warfarin Sodium) 5 Mg Tab 7.5 Mg PO [id number] 06/01/17 Reported TAKE ALL DAYS EXCEPT WED Vitamin D 1000 Unit (Cholecalciferol) 1,000 Unit Cap 1,000 Inter.unit PO DAILY 06/01/17 Reported Caltrate 600 Plus (Calcium Carbonate-Vitamin D W/) 1 Tab Tab 1 Tab PO DAILY 06/01/17 Reported Aspirin Ec (Aspirin) 81 Mg Tab 81 Mg PO DAILY 06/01/17 Reported Lipitor (Atorvastatin Calcium) 40 Mg Tab 40 Mg PO QPM 07/21/11 Reported Vital Signs Weight (Kilograms): 91.500 Height (Feet): 6 Height (Inches): 0.00 Date Time Temp Pulse Resp B/P (MAP) Pulse Ox O2 Delivery O2 Flow Rate FiO2 07/11/17 08:00 97 Room Air 07/11/17 07:57 36.5 90 18 124/67 (86) 100 Room Air 07/11/17 04:31 36.5 97 18 95/74 (81) 97 Room Air 07/11/17 04:00 Room Air 07/11/17 00:01 36.9 68 22 136/87 (103) 100 Room Air 07/11/17 00:00 Room Air 07/10/17 20:00 Room Air 07/10/17 19:14 36.4 112 16 131/94 (106) 100 Room Air 07/10/17 16:00 Room Air 07/10/17 15:46 36.9 85 18 106/72 (83) 99 Room Air 07/10/17 12:00 97 Room Air 07/10/17 11:52 36.8 91 17 111/68 (82) 100 Room Air Physical Exam General Appearance: no apparent distress Respiratory/Chest: Auscultation: breath sounds normal Cardiovascular: Heart Auscultation: RRR Abdomen: Inspection & Palpation: soft, non-distended Assessment and Plan Stable for colonoscopy. Consented.
--- NOTE | 2017-07-11 11:27 | Progress Note ---
Medicine Progress Note Date & Time of Visit: Jul 11, 2017 at 11:27. Subjective Patient states he had an eventful night due to the bowel prep; otherwise no overnight events noted. Denies any complaints of CP, SOB, palpitations, dizziness or lightheadedness. Objective Last 8 Hrs Date Time Temp Pulse Resp B/P (MAP) Pulse Ox O2 Delivery O2 Flow Rate FiO2 07/11/17 08:00 97 Room Air 07/11/17 07:57 36.5 90 18 124/67 (86) 100 Room Air 07/11/17 04:31 36.5 97 18 95/74 (81) 97 Room Air 07/11/17 04:00 Room Air Physical Exam: GENERAL: Patient is in no acute distress. HEENT: No acute trauma, normocephalic, mucous membranes moist, no nasal congestion, no scleral icterus. Conjunctivae clear. NECK: No stridor, trachea is midline. LUNGS: Clear to auscultation bilaterally, no wheeze, no rhonchi, breath sounds equal. HEART: Without murmurs gallops or rubs, irregularly irregular ABDOMEN: Soft, mildly tender RLQ, bowel sounds positive, no hepatosplenomegaly EXTREMITIES: No cyanosis or edema NEUROLOGIC: Oriented x 3, no acute motor or sensory deficits, no focal weakness. SKIN: No rash, no jaundice, no diaphoresis. Laboratory Results: Last 24 Hours Test 07/11/17 05:31 White Blood Count 14.59 K/uL Red Blood Count 3.29 M/uL Hemoglobin 10.8 g/dL Hematocrit 32.6 % Mean Corpuscular Volume 99.1 fL Mean Corpuscular Hemoglobin 32.8 pg Mean Corpuscular Hemoglobin Concent 33.1 g/dl RDW Standard Deviation 52.7 fL RDW Coefficient of Variation 14.8 % Platelet Count 473 K/uL Mean Platelet Volume 10.0 fL Prothrombin Time 14.7 SECONDS Prothromb Time International Ratio 1.4 Sodium Level 137 mmol/L Potassium Level 4.4 mmol/L Chloride Level 105 mmol/L Carbon Dioxide Level 25 mmol/L Anion Gap 7.0 mmol/L Blood Urea Nitrogen 15 mg/dl Creatinine 1.00 mg/dl Est Creatinine Clear Calc Drug Dose 70.1 ml/min Estimated GFR () 85.0 Estimated GFR (Non- 73.3 BUN/Creatinine Ratio 15.3 Random Glucose 112 mg/dl Calcium Level 8.2 mg/dl Magnesium Level 1.8 mg/dl Assessment & Plan SEPSIS: -secondary to UTI and influenza B co-infection; CT scan mentions enlarged prostate with inflammatory changes consider possibility of prostatitis -urine and 2 out of 2 blood cultures showing E. coli, diallo-sensitive -presented with elevated procalcitonin/lactate, leukocytosis, tachycardia, hypotension and KRISTOPHER -WBCs trending down slowly -HR has been slightly more elevated during exertion but fairly well controlled at rest -BP improved and stable following fluids -CXR negative -ID consulted, appreciate recs -recently completed 14 days of flagyl for c-diff; diarrhea has since resolved; was placed on PO vanco on admission due to expected prolonged course of abx -CT abd/pelvis report: 1. No evidence of bowel obstruction. No evidence of free air. 2. Normal appendix. Diverticulosis. No evidence of acute diverticulitis. 3. No evidence of significant active colitis on this noncontrast study. 4. 6.6 cm left renal cyst. No renal or ureteral calculi identified. Bilateral perinephric stranding. 5. 17 mm calcified mesenteric nodule adjacent to the cecum. This a nonspecific finding which likely is secondary to either a carcinoid tumor or postinflammatory calcification. 6. Mildly enlarged left paraaortic lymph node. 7. Mild prostamegaly. 8. Nonspecific 7 mm hypodensity within the right hepatic lobe. 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 (last baseline 06/01/17 - 1.25) -most likely prerenal related to sepsis and hypovolemia; improved after fluids -no kidney stone noted on CT scan but mention of b/l perinephric stranding -NSS IV stopped as tolerating PO and KRISTOPHER resolved -avoid nephrotoxic agents when able SUPRATHERAPEUTIC INR: -INR>10 on admission, has been given vitamin K several days; INR 1.4 today; goal is to get INR under 2 for colonoscopy [place] -no bleeding noted other than the intramuscular hematoma; monitoring H&H very closely -holding coumadin -INR daily -likely elevated with recent concurrent flagyl use INTRAMUSCULAR HEMATOMA: -patient with a large intramuscular hematoma of the right iliacus and iliopsoas musculature measuring up to 20.4 cm in length -monitor H&H closely; was initially 13, fell to 11 and has remained 10.8 today -continue to reverse anticoagulation and reduce INR -will need to restart coumadin on discharge with very close following of his Hemoglobin and his intramuscular hematoma as there is a risk of this expanding A-FIB: with RVR on admission -known chronic a-fib -on metoprolol -coumadin held for elevated INR -HR was elevated from sepsis, improved following fluids -holding coumadin as supra therapeutic -continue metoprolol, dose titrated up to achieve better control -Cardiology not officially consulted, but have been available to discuss this patient; have recommended increasing metoprolol to 75mg BID -also discussed restarting coumadin, and how the patient will require very close monitoring of Hb and INR if he is to resume coumadin; can resume if there are no immediate plans for any additional procedures. HYPOTHYROIDISM: -continue levothyroxine HYPERLIPIDEMIA: -continue atorvastatin MESENTERIC MASS: -CT abd/pelvis 17 mm calcified mesenteric nodule adjacent to the cecum. This a nonspecific finding which likely is secondary to either a carcinoid tumor or postinflammatory calcification. -this appears as a 3 cm mass on contrast CT; highly suspicious for malignancy -General Surgery consulted, recommended GI to obtain biopsy and surgery to follow up as outpatient; will need follow up with Dr. Sylvester as an outpatient (patient preference to see Dr. Sylvester) -GI consulted, planning for colonoscopy today -CT abd/pelvis: CT with IV contrast report: 1. Enhancing spiculated partially calcified mass of the right lower quadrant mesentery adjacent to the ileocecal valve causes tethering of the adjacent mesentery and measures up to 3.0 cm, very suspicious for ileal carcinoid tumor. Additionally, there is associated wall thickening of the terminal ileum with minimal fluid distention noted proximally. No bowel obstruction. Surgical consultation recommended. 2. Interval development of a large intramuscular hematoma of the right iliacus and iliopsoas musculature measuring up to 20.4 cm in length. 3. Low attenuating lesions of the liver are too small to characterize, largest of which measures up to 7 mm within the posterior right hepatic lobe. 4. Prostamegaly with possible cystitis. Current Inpatient Medications: Current Inpatient Medications Medications (Trade) Dose Ordered Sig/Guillermina Route Start Time Stop Time Status Last Admin Dose Admin Acetaminophen (Tylenol Tab) 650 mg Q4H PRN PO 07/04/17 16:30 08/03/17 16:29 07/05/17 21:01 650 MG Aspirin (Ecotrin Tab) 81 mg DAILY PO 07/05/17 09:00 08/04/17 08:59 07/11/17 08:19 81 MG Atorvastatin Calcium (Lipitor Tab) 40 mg QPM PO 07/04/17 21:00 08/03/17 20:59 07/10/17 20:56 40 MG Levothyroxine Sodium (Synthroid Tab) 50 mcg DAILYBB PO 07/05/17 06:00 08/04/17 05:59 07/10/17 05:39 50 MCG Lisinopril (Zestril Tab) 2.5 mg DAILY PO 07/05/17 09:00 08/04/17 08:59 07/11/17 08:20 2.5 MG Vancomycin HCl (Vancomycin Oral Soln) 125 mg QID PO 07/04/17 21:00 07/18/17 20:59 07/11/17 08:20 125 MG Raspberry (Raspberry Syrup 5ml Cup) 5 ml QID PO 07/04/17 21:00 07/18/17 20:59 07/11/17 08:20 5 ML Metoprolol Tartrate (Lopressor Tab) 50 mg BID PO 07/07/17 21:00 08/03/17 20:59 07/11/17 08:19 50 MG Ioversol (Optiray 320) 100 ml UD PRN IV 07/07/17 13:30 07/11/17 13:29 Ciprofloxacin/ Dextrose 400 mg/ Prmx 200 ml @ 100 mls/hr Q12 IV 07/09/17 21:00 07/19/17 20:59 07/11/17 08:19 100 MLS/HR Triamcinolone Acetonide (Kenalog 0.1% Cream) 1 appln BID PRN EXT 07/09/17 19:45 08/08/17 19:44
--- NOTE | 2017-07-11 13:03 | GI REPORT ---
Procedure Date: 07/11/2017 11:48 AM Procedure: Colonoscopy Indications: Abnormal CT of the GI tract Medicines: Monitored Anesthesia Care Complications: No immediate complications. Estimated Blood Loss: Estimated blood loss: none. Procedure: Pre-Anesthesia Assessment: - Prior to the procedure, a History and Physical was performed, and patient medications and allergies were reviewed. The patient is competent. The risks and benefits of the procedure and the sedation options and risks were discussed with the patient. All questions were answered and informed consent was obtained. Patient identification and proposed procedure were verified by the physician and the nurse in the procedure room. Mental Status Examination: alert and oriented. Airway Examination: normal oropharyngeal airway and neck mobility. Respiratory Examination: clear to auscultation. CV Examination: normal. ASA Grade Assessment: III - A patient with severe systemic disease. After reviewing the risks and benefits, the patient was deemed in satisfactory condition to undergo the procedure. The anesthesia plan was to use monitored anesthesia care (MAC). Immediately prior to administration of medications, the patient was re-assessed for adequacy to receive sedatives. The heart rate, respiratory rate, oxygen saturations, blood pressure, adequacy of pulmonary ventilation, and response to care were monitored throughout the procedure. The physical status of the patient was re-assessed after the procedure. After I obtained informed consent, the scope was passed under direct vision. Throughout the procedure, the patient's blood pressure, pulse, and oxygen saturations were monitored continuously. The scope was introduced through the anus and advanced to the terminal ileum. The colonoscopy was performed without difficulty. The patient tolerated the procedure well. The quality of the bowel preparation was good. The terminal ileum, ileocecal valve, appendiceal orifice, and rectum were photographed. Scope insertion time was 5 minutes. Scope withdrawal time was 15 minutes. The total duration of the procedure was 20 minutes. Findings: The perianal and digital rectal examinations were normal. A localized area of the terminal ileum just near the IC valve was congested and pale mucosa. Biopsies were taken with a cold forceps for histology. Verification of patient identification for the specimen was done by the physician and nurse using the patient's name and date. Deep into TI, the mucosa was normal with no lesions noted. The terminal ileum contained one localized, non-bleeding small polyp. Biopsies were taken with a cold forceps for histology. A localized area of hjgzgnew-kujolmr-wrdoieeoz pale mucosa was found at the ileocecal valve. Biopsies were taken with a cold forceps for histology. Multiple small and large-mouthed diverticula were found in the sigmoid colon. Non-bleeding internal hemorrhoids were found during retroflexion. The hemorrhoids were small. Impression: - Congested mucosa in the terminal ileum. Biopsied. - One ileal polyp in the terminal ileum, biopsied with a cold biopsy forceps. - Yoafxbxc-fjzzykc-azxxbxxww mucosa at the ileocecal valve. Biopsied. - Diverticulosis in the sigmoid colon. - Non-bleeding internal hemorrhoids. Recommendation: - [facility]. - Await pathology results. - Repeat colonoscopy for surveillance based on pathology results. - If biopsy is inconclusive, consider IR guided biopsy of the abnormal CT scan finding. Eloy Benoit MD 07/11/2017 1:03:09 PM This report has been signed electronically. Note Initiated On: 07/11/2017 11:48 AM I attest to the content of the Intraoperative Record and orders documented therein, exceptions below
--- NOTE | 2017-07-11 13:39 | Anesthesiology Progress Note ---
Anesthesia Post Op Note Date & Time Jul 11, 2017 at 13:39 Vital Signs Pain Intensity: 0.0 Vital Signs Past 12 Hours Date Time Temp Pulse Resp B/P (MAP) Pulse Ox O2 Delivery O2 Flow Rate FiO2 07/11/17 13:13 102 16 108/78 (88) 98 Room Air 07/11/17 12:58 118 16 105/74 (84) 100 Nasal Cannula 3 07/11/17 12:43 36.5 110 16 90/62 (71) 98 Room Air 07/11/17 11:25 36.5 89 16 127/79 (95) 100 Room Air 07/11/17 08:00 97 Room Air 07/11/17 07:57 36.5 90 18 124/67 (86) 100 Room Air 07/11/17 04:31 36.5 97 18 95/74 (81) 97 Room Air 07/11/17 04:00 Room Air Notes Mental Status: alert / awake / arousable, participated in evaluation Pt Amnestic to Procedure: Yes Nausea / Vomiting: adequately controlled Pain: adequately controlled Airway Patency, RR, SpO2: stable & adequate BP & HR: stable & adequate Hydration State: stable & adequate Anesthetic Complications: no major complications apparent
[2017-07-11] MEDS: ATORVASTATIN 40 MG TAB PO SCH (21:24)
[2017-07-12] VITALS (7 sets, daily range): BP systolic 109–128; BP diastolic 66–85; PULSE 90–101; TEMP 36.6–36.9; O2SAT 96–100
[2017-07-12] MEDS: LEVOTHYROXINE 50 MCG TAB PO SCH (06:16)
[2017-07-12 06:23] LABS: INR 1.3 (0.9-1.1); PROTHROMBIN TIME (PATIENT) 13.4 SECONDS (9.0-12.0)
[2017-07-12 06:39] LABS: BUN/CREATININE RATIO 17.7 (10-20); CREATININE 1.14 mg/dl (0.60-1.40); POTASSIUM 4.4 mmol/L (3.5-5.1)
[2017-07-12 07:09] LABS: HEMATOCRIT 29.8 % (42-52); MEAN CELL VOLUME 99.3 fL (80-100); MEAN CORPUSCULAR HEMOGLOBIN 32.7 pg (25-34); MEAN CORPUSCULAR HGB CONC 32.9 g/dl (32-36); MEAN PLATELET VOLUME 9.9 fL (7.4-10.4); PLATELET COUNT 485 K/uL (130-400); WHITE BLOOD COUNT 10.51 K/uL (4.8-10.8)
--- NOTE | 2017-07-12 08:39 | Gastroenterology Progress Note ---
Progress Note Date of Service: Jul 12, 2017 Subjective Pt evaluation today including: conversation w/ patient, physical exam, chart review, lab review Pt seen and examined, chart reviewed. No acute events overnight. Had colonoscopy yesterday for abnormal CT scan. No mass identified, congested mucosa in TI. Biopsies pending. Tolerated procedure well. Tolerating diet. Wants to go home. No fever, chills, CP, SOB. Colonoscopy 07/11/17: Congested mucosa in the terminal ileum. Biopsied. One ileal polyp in the terminal ileum, biopsied with a cold biopsy forceps. Ixaamith-pxhuoat-wnqrlkrwp mucosa at the ileocecal valve. Biopsied. Diverticulosis in the sigmoid colon. Non-bleeding internal hemorrhoids CT ABD/Pelvis w/ contrast 07/07/17: Enhancing spiculated partially calcified mass of the right lower quadrant mesentery adjacent to the ileocecal valve causes tethering of the adjacent mesentery and measures up to 3.0 cm, very suspicious for ileal carcinoid tumor. Additionally, there is associated wall thickening of the terminal ileum with minimal fluid distention noted proximally. No bowel obstruction. Surgical consultation recommended. Interval development of a large intramuscular hematoma of the right iliacus and iliopsoas musculature measuring up to 20.4 cm in length. Low attenuating lesions of the liver are too small to characterize, largest of which measures up to 7 mm within the posterior right hepatic lobe. Prostamegaly with possible cystitis. CT ABD/Pelvis w/o contrast 07/04/17: No evidence of bowel obstruction. No evidence of free air. Normal appendix. Diverticulosis. No evidence of acute diverticulitis. Submucosal fat hypertrophy within the cecum. No evidence of significant active colitis on this noncontrast study. 6.6 cm left renal cyst. No renal or ureteral calculi identified. Bilateral perinephric stranding. 17 mm calcified mesenteric nodule adjacent to the cecum. This a nonspecific finding which likely is secondary to either a carcinoid tumor or postinflammatory calcification Mildly enlarged left paraaortic lymph node. Mild prostamegaly Nonspecific 7 mm hypodensity within the right hepatic lobe Chest XR 07/04/17: No acute cardiopulmonary findings. Colonoscopy 10/19/07: A 2 mm polyp in the sigmoid colon. Resected and retrieved. Diverticulosis sigmoid colon. Internal medium-sized hemorrhoids were found. The exam was otherwise normal to the cecum. Review of Systems Constitutional: No fever, No chills Respiratory: No shortness of breath Cardiac: No chest pain Abdomen: No pain, No nausea, No vomiting, No diarrhea, No constipation Medications Current Inpatient Medications Medications (Trade) Dose Ordered Sig/Guillermina Route Start Time Stop Time Status Last Admin Dose Admin Acetaminophen (Tylenol Tab) 650 mg Q4H PRN PO 07/04/17 16:30 08/03/17 16:29 07/05/17 21:01 650 MG Aspirin (Ecotrin Tab) 81 mg DAILY PO 07/05/17 09:00 08/04/17 08:59 07/11/17 08:19 81 MG Atorvastatin Calcium (Lipitor Tab) 40 mg QPM PO 07/04/17 21:00 08/03/17 20:59 07/11/17 21:24 40 MG Levothyroxine Sodium (Synthroid Tab) 50 mcg DAILYBB PO 07/05/17 06:00 08/04/17 05:59 07/12/17 06:16 50 MCG Lisinopril (Zestril Tab) 2.5 mg DAILY PO 07/05/17 09:00 08/04/17 08:59 07/11/17 08:20 2.5 MG Vancomycin HCl (Vancomycin Oral Soln) 125 mg QID PO 07/04/17 21:00 07/18/17 20:59 07/11/17 21:22 125 MG Raspberry (Raspberry Syrup 5ml Cup) 5 ml QID PO 07/04/17 21:00 07/18/17 20:59 07/11/17 21:22 5 ML Ciprofloxacin/ Dextrose 400 mg/ Prmx 200 ml @ 100 mls/hr Q12 IV 07/09/17 21:00 07/19/17 20:59 07/11/17 21:24 100 MLS/HR Triamcinolone Acetonide (Kenalog 0.1% Cream) 1 appln BID PRN EXT 07/09/17 19:45 08/08/17 19:44 Sodium Chloride 500 ml @ 15 mls/hr Q24H ONCE IV 07/11/17 11:23 07/12/17 11:22 07/11/17 21:26 15 MLS/HR Metoprolol Tartrate (Lopressor Tab) 75 mg BID PO 07/11/17 21:00 08/03/17 20:59 07/11/17 21:24 75 MG Objective Vital Signs Date Time Temp Pulse Resp B/P (MAP) Pulse Ox O2 Delivery O2 Flow Rate FiO2 07/12/17 08:01 36.8 101 16 128/66 (86) 100 Room Air 07/12/17 04:00 96 Room Air 07/12/17 03:42 36.9 96 20 116/85 (95) 100 Room Air 07/12/17 00:13 36.6 96 20 110/84 (93) 99 Room Air 07/12/17 00:00 96 Room Air 07/11/17 20:05 36.9 95 18 101/67 (78) 99 Room Air 07/11/17 20:00 98 Room Air 07/11/17 16:00 97 Room Air 07/11/17 15:20 36.4 92 18 101/61 (74) 97 Room Air 07/11/17 14:08 36.5 106 20 103/70 (81) 100 Room Air 07/11/17 13:13 102 16 108/78 (88) 98 Room Air 07/11/17 12:58 118 16 105/74 (84) 100 Nasal Cannula 3 07/11/17 12:43 36.5 110 16 90/62 (71) 98 Room Air 07/11/17 11:25 36.5 89 16 127/79 (95) 100 Room Air Physical Exam General Appearance: no apparent distress Eyes: PERRL ENT: hearing grossly normal Neck: supple Respiratory/Chest: lungs clear Cardiovascular: regular rate, rhythm Abdomen: normal bowel sounds, non tender, soft, no organomegaly Neurologic/Psych: alert, normal mood/affect, oriented x 3 Skin: normal color Laboratory Results Last 24 Hours Test 07/12/17 05:37 White Blood Count 10.51 K/uL Red Blood Count 3.00 M/uL Hemoglobin 9.8 g/dL Hematocrit 29.8 % Mean Corpuscular Volume 99.3 fL Mean Corpuscular Hemoglobin 32.7 pg Mean Corpuscular Hemoglobin Concent 32.9 g/dl RDW Standard Deviation 53.7 fL RDW Coefficient of Variation 15.2 % Platelet Count 485 K/uL Mean Platelet Volume 9.9 fL Prothrombin Time 13.4 SECONDS Prothromb Time International Ratio 1.3 Sodium Level 137 mmol/L Potassium Level 4.4 mmol/L Chloride Level 107 mmol/L Carbon Dioxide Level 25 mmol/L Anion Gap 5.0 mmol/L Blood Urea Nitrogen 20 mg/dl Creatinine 1.14 mg/dl Est Creatinine Clear Calc Drug Dose 66.9 ml/min Estimated GFR () 72.5 Estimated GFR (Non- 62.6 BUN/Creatinine Ratio 17.7 Random Glucose 112 mg/dl Calcium Level 8.0 mg/dl Assessment and Plan Patient is a 76 year old male w/ 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 Sepsis secondary to UTI, influenzae, recent c.diff infection w/ completion of PO Flagyl and course of vancomycin. Colonoscopy yesterday, without - Complete course of vancomycin 125 QID x 14 days - Florastor 1 tab once daily x 2 months - Would advise limiting use of other ABX unless indicated - Follow up colonoscopy biopsies - O/P liver work up +/- biopsy for elevated LFTs, abnormal imaging. - May consider repeat colonoscopy or IR guided Bx of the lesion if the current Bx is inconclusive. I performed a history and physical examination of the patient, including specifically on physical exam - abdomen is soft. I have discussed the patient's management with Tania. Please refer to the CLINICAL LABORATORY DIRECTOR's note for the documented findings and plan of care.
[2017-07-12] MEDS: CIPROFLOXACIN / D5W 400 MG in PREMIXED IN D5W 200 ML IV SCH (10:03)
[2017-07-12] MEDS: ASPIRIN 81 MG ECTAB PO SCH (10:04)
[2017-07-12] MEDS: METOPROLOL TARTRATE 50 MG TAB PO SCH (10:05)
[2017-07-12] MEDS: LISINOPRIL 2.5 MG TAB PO SCH (10:08)
[2017-07-12] MEDS: RASPBERRY SYRUP 5 ML UDP PO SCH ×2 (10:09→13:47)
[2017-07-12] MEDS: VANCOMYCIN HCL 125 MG/2.5ML SOLN PO SCH ×2 (10:19→13:47)
--- NOTE | 2017-07-12 10:42 | Progress Note ---
Internal Med Progress Note Date of Service: Jul 12, 2017. Provider Documentation: SUBJECTIVE: The patient was seen and examined Denies any symptoms Ambulating well and tolerating regular diet Wants to go home today OBJECTIVE: Vital Signs-as noted below Exam: General-No distress at rest Eyes-normal ENT-normal Neck-supple Lungs-clear to ausucltate bilaterally Heart-Regular,no murmur appreciated Abdomen-Benign,no masses,bowel sound present Extremities-NO edema Neuro-AAOx3 No focal neuro deficit Lab data as noted below. ASSESSMENT & PLAN: SEPSIS: -secondary to UTI and influenza B co-infection; CT scan mentions enlarged prostate with inflammatory changes consider possibility of prostatitis -urine and 2 out of 2 blood cultures showing E. coli, diallo-sensitive -presented with elevated procalcitonin/lactate, leukocytosis, tachycardia, hypotension and KRISTOPHER -CXR negative -ID consulted, appreciate recs -H/O c-diff -Recently finished 14 days of Flagyl -now on PO vanco on admission to continue for 14 days in total -CT abd/pelvis report: 1. No evidence of bowel obstruction. No evidence of free air. 2. Normal appendix. Diverticulosis. No evidence of acute diverticulitis. 3. No evidence of significant active colitis on this noncontrast study. 4. 6.6 cm left renal cyst. No renal or ureteral calculi identified. Bilateral perinephric stranding. 5. 17 mm calcified mesenteric nodule adjacent to the cecum. This a nonspecific finding which likely is secondary to either a carcinoid tumor or postinflammatory calcification. 6. Mildly enlarged left paraaortic lymph node. 7. Mild prostamegaly. 8. Nonspecific 7 mm hypodensity within the right hepatic lobe. 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 (last baseline 06/01/17 - 1.25) -most likely prerenal related to sepsis and hypovolemia; improved after fluids -no kidney stone noted on CT scan but mention of b/l perinephric stranding -NSS IV stopped as tolerating PO and KRISTOPHER resolved -avoid nephrotoxic agents when able -renal function is normalized SUPRATHERAPEUTIC INR: -INR>10 on admission, has been given vitamin K several days; INR 1.4 today; goal is to get INR under 2 for colonoscopy Tuesday -no bleeding noted other than the intramuscular hematoma; monitoring H&H very closely -will restart Coumadin and go slow INTRAMUSCULAR HEMATOMA: -patient with a large intramuscular hematoma of the right iliacus and iliopsoas musculature measuring up to 20.4 cm in length -monitor H&H closely; was initially 13 -will need to restart Coumadin on discharge with very close following of his Hemoglobin and his intramuscular hematoma as there is a risk of this expanding -Hb today 9.8 -will restart Coumadin on discharge A-FIB: with RVR on admission -known chronic a-fib -on metoprolol -HR was elevated from sepsis, improved following fluids -continue metoprolol, dose titrated up to achieve better control -Cardiology not officially consulted, but have been available to discuss this patient; have recommended increasing metoprolol to 75mg BID -also discussed restarting Coumadin, and how the patient will require very close monitoring of Hb and INR if he is to resume coumadin; can resume if there are no immediate plans for any additional procedures. HYPOTHYROIDISM: -continue levothyroxine HYPERLIPIDEMIA: -continue atorvastatin MESENTERIC MASS: -CT abd/pelvis 17 mm calcified mesenteric nodule adjacent to the cecum. This a nonspecific finding which likely is secondary to either a carcinoid tumor or postinflammatory calcification. This appears as a 3 cm mass on contrast CT; highly suspicious for malignancy -General Surgery consulted, recommended GI to obtain biopsy and surgery to follow up as outpatient; will need follow up with Dr. Sylvester as an outpatient (patient preference to see Dr. Sylvester) -GI consulted, -CT abd/pelvis: CT with IV contrast report: 1. Enhancing spiculated partially calcified mass of the right lower quadrant mesentery adjacent to the ileocecal valve causes tethering of the adjacent mesentery and measures up to 3.0 cm, very suspicious for ileal carcinoid tumor. Additionally, there is associated wall thickening of the terminal ileum with minimal fluid distention noted proximally. No bowel obstruction. Surgical consultation recommended. 2. Interval development of a large intramuscular hematoma of the right iliacus and iliopsoas musculature measuring up to 20.4 cm in length. 3. Low attenuating lesions of the liver are too small to characterize, largest of which measures up to 7 mm within the posterior right hepatic lobe. 4. Prostamegaly with possible cystitis. -S/P Colonoscopy -Biopsy taken ,await pathology -May need IR guided biopsy of the Intraabdominal mass DISPOSITION Discharge home today Vital Signs: Date Time Temp Pulse Resp B/P (MAP) Pulse Ox O2 Delivery O2 Flow Rate FiO2 07/12/17 08:01 36.8 101 16 128/66 (86) 100 Room Air 07/12/17 04:00 96 Room Air 07/12/17 03:42 36.9 96 20 116/85 (95) 100 Room Air 07/12/17 00:13 36.6 96 20 110/84 (93) 99 Room Air 07/12/17 00:00 96 Room Air 07/11/17 20:05 36.9 95 18 101/67 (78) 99 Room Air 07/11/17 20:00 98 Room Air 07/11/17 16:00 97 Room Air 07/11/17 15:20 36.4 92 18 101/61 (74) 97 Room Air 07/11/17 14:08 36.5 106 20 103/70 (81) 100 Room Air 07/11/17 13:13 102 16 108/78 (88) 98 Room Air 07/11/17 12:58 118 16 105/74 (84) 100 Nasal Cannula 3 07/11/17 12:43 36.5 110 16 90/62 (71) 98 Room Air 07/11/17 11:25 36.5 89 16 127/79 (95) 100 Room Air Lab Results: Results Past 24 Hours Test 07/12/17 05:37 Range/Units White Blood Count 10.51 4.8-10.8 K/uL Red Blood Count 3.00 4.7-6.1 M/uL Hemoglobin 9.8 14.0-18.0 g/dL Hematocrit 29.8 42-52 % Mean Corpuscular Volume 99.3 80-100 fL Mean Corpuscular Hemoglobin 32.7 25-34 pg Mean Corpuscular Hemoglobin Concent 32.9 32-36 g/dl RDW Standard Deviation 53.7 36.4-46.3 fL RDW Coefficient of Variation 15.2 11.5-14.5 % Platelet Count 485 130-400 K/uL Mean Platelet Volume 9.9 7.4-10.4 fL Prothrombin Time 13.4 9.0-12.0 SECONDS Prothromb Time International Ratio 1.3 0.9-1.1 Sodium Level 137 136-145 mmol/L Potassium Level 4.4 3.5-5.1 mmol/L Chloride Level 107 98-107 mmol/L Carbon Dioxide Level 25 21-32 mmol/L Anion Gap 5.0 3-11 mmol/L Blood Urea Nitrogen 20 7-18 mg/dl Creatinine 1.14 0.60-1.40 mg/dl Est Creatinine Clear Calc Drug Dose 66.9 ml/min Estimated GFR () 72.5 Estimated GFR (Non- 62.6 BUN/Creatinine Ratio 17.7 10-20 Random Glucose 112 70-99 mg/dl Calcium Level 8.0 8.5-10.1 mg/dl
[2017-07-12] MEDS ORDERED: CEPHALEXIN MONOHYDRATE 500 MG CAP PO ONE (11:00)
[2017-07-12] MEDS ORDERED: VANC1SUS PO (13:50)
[2017-07-12] MEDS ORDERED: LCTX PO (13:50)
[2017-07-12] MEDS ORDERED: KFL500 PO (13:50)
--- NOTE | 2017-07-12 13:56 | Discharge Instructions ---
Discharge Instructions Date of Service Jul 12, 2017. Admission Reason for Admission: Dehydration, Leukocytosis Discharge Discharge Diagnosis / Problem: Sepsis,Mesenteric Mass/Ileal mass,C Diff Colitis ,AF Discharge Goals Goal(s): Prevent Disease Progression Activity Recommendations Activity Limitations: resume your previous activity . Instructions / Follow-Up Instructions / Follow-Up Dr Norris on 07/18/17 at 2:55PM,DR Sylvester on 07/27/17 at 11:15AM and GI on at 1:45 PM.Coagulation clinic notified Current Hospital Diet Patient's current hospital diet: AHA Diet (Heart Healthy) Discharge Diet Recommended Diet: AHA Diet (Heart Healthy) Procedures Procedures Performed: COLONOSCOPY Pending Studies Studies pending at discharge: no Medical Emergencies . Who to Call and When: Medical Emergencies: If at any time you feel your situation is an emergency, please call 911 immediately. . Non-Emergent Contact Non-Emergency issues call your: Primary Care Provider . Past History Medical & Surgical History: (1) E. coli septicemia (2) Influenza B (3) C. difficile colitis (4) Atrial fibrillation (5) HTN (hypertension) (6) Hypothyroidism . "Provider Documentation" section prepared by Carole Barker. . VTE Core Measure Inpt VTE Proph given/why not?: Warfarin (Coumadin) (pt supratherapeutic at this time), SCD's
[2017-07-12] MEDS ORDERED: CEPHALEXIN MONOHYDRATE 500 MG CAP PO SCH (14:00)
--- NOTE | 2017-07-13 08:00 | Discharge Summary ---
Discharge Summary Date of Service Jul 13, 2017. Discharge Summary Admission Date: Jul 04, 2017 at 16:09 Discharge Date: Jul 12, 2017 Discharge Disposition: Home Principal Diagnosis: Sepsis,Mesenteric Mass/Ileal mass,C Diff Colitis,AF Secondary Diagnoses/Problems: Please seeH&P and Hospital Progress note Consultations: Surgery,ID and GI Medication Reconciliation New Medications: Lactobacillus Acidophilus (Lactinex) Tab 2 TAB PO BID, #30 TAB Cephalexin Monohydrate (Cephalexin) 500 Mg Cap 500 MG PO TID for 4 Days, #12 CAP Vancomycin HCl (Vancomycin HCl + Syrspend) 50 Mg/Ml Evelyne 125 MG PO QID for 6 Days, #24 Continued Medications: Aspirin (Aspirin Ec) 81 Mg Tab 81 MG PO DAILY Atorvastatin (Lipitor) 40 Mg Tab 40 MG PO QPM, 0 Refills Calcium Carbonate-Vitamin D W/ (Caltrate 600 Plus) 1 Tab Tab 1 TAB PO DAILY, TAB Cholecalciferol (Vitamin D 1000 Unit) 1,000 Unit Cap 1000 INTER.UNIT PO DAILY, CAP Levothyroxine Sodium (Synthroid) 50 Mcg Tab 50 MCG PO DAILY, TAB Lisinopril (Lisinopril) 2.5 Mg Tab 2.5 MG PO DAILY, TAB Metoprolol Tartrate (Lopressor) (Lopressor) 50 Mg Tab 75 MG PO BID, TAB Warfarin Sod (Jantoven) 5 Mg Tab 5 MG PO WED, TAB Started on 5mg daily .Please dose to keep INR between 2 to 3 Discontinued Medications: Metronidazole (Flagyl) 500 Mg Tab 500 MG PO BID for 14 Days, #28 TAB day 13 was 12/3 Warfarin Sod (Jantoven) 5 Mg Tab 7.5 MG PO 6XWK, TAB TAKE ALL DAYS EXCEPT WED Admission Information HPI (per Admitting provider): Pt is 76 y/o M with PMH a-fib, HTN, hyperlipidemia, hypothyroidism presented to ER with c/o weakness, fever x 1 week. Pt reports hx pacer placed 03/2017 and states was placed on clindamycin and had reaction and took prednisone. Reports hx UTI 06/01/17 and was placed on cefdinir. Pt then reports onset diarrhea and placed on flagyl x 14 days on 06/21/17 and finished course yesterday. He states diarrhea has resolved. Had soft BM this morning. States was taking coumadin 5mg daily instead of 7.5mg daily since was on flagyl. Pt reports for past week with fevers, highest 104F 3 days ago. Has been taking Tylenol for fever which brings down then fever returns. Last dose Tylenol last night. Also reports feeling generalized weakness and felt winded with exertion x 1 week and chills and sweats. C/O poor appetite past week and intermittent nausea several days ago. Denies any nausea currently. Denies vomiting. Pt reports taking BP at home and 2 days ago BP's 73/48 and 69/56, other days BP low 100s systolic. Past week feels like heart flutters and noted pulse to be low 100's. States couple weeks ago UR symptoms which have since resolved. Denies vomiting, melena, hematochezia , CAR[place]HO, syncope, vision changes, neck pain, CP, orthopnea, choking, otalgia, abdominal pain, paresthesias, extremity edema, rashes, dysuria, hematuria. In ER pt given 1L NSS. WBC: 17.5. CR: 2.4 (1.25 baseline). INR>10 and was given 2.5mg Vit K. Pending lactic acid. Pending CT abd/pelvix, U/A. pending blood cultures. Negative CXR. Past Medical/Surgical History Medical Problems: (1) Atrial fibrillation Status: Chronic (2) Dyslipidemia Status: Chronic (3) History of rectal abscess Permanent Comment: 1983, perirectal abscess I&D, fissure Status: Resolved (4) HTN (hypertension) Status: Chronic (5) Hx pulmonary embolism Status: Resolved (6) Hypothyroidism Status: Chronic (7) Vitamin D deficiency Status: Chronic Surgical Problems: (1) History of tonsillectomy and adenoidectomy Status: Resolved (2) Hx of colonoscopy Permanent Comment: 10/19/2007 - benign neoplasm of colon, hyperplastic, repeat recommended 10 years Status: Resolved Family History Diabetes mellitus MOTHER BROTHER FH: cancer FATHER (possible liver CA) GRANDMOTHER (possible lung CA) Hypertension FATHER Stroke GRANDMOTHER Social History Smoking Status: Former Smoker (quit 1982, smoked 1.5ppd x 20 years) Smokeless Tobacco Use: No Alcohol Use: socially Drug Use: none Marital Status: Housing status: lives with significant other Occupational Status: retired Immunizations History of Influenza Vaccine: No History of Tetanus Vaccine?: Yes Tetanus Immunization Date: Mar 26, 2004 History of Pneumococcal: Yes Pneumococcal Date: Mar 26, 2004 History of Hepatitis B Vaccine: No Allergies Coded Allergies: Clindamycin (Verified Allergy, Unknown, UNKNOWN, 07/04/17) Penicillins (Verified Allergy, Unknown, "happened as a child, not sure of reaction", 07/04/17) Uncoded Allergies: PEROXID (Allergy, Severe, SEVERE RASH, 03/29/17) Home Medications Scheduled Aspirin (Aspirin Ec), 81 MG PO DAILY Atorvastatin (Lipitor), 40 MG PO QPM Calcium Carbonate-Vitamin D W/ (Caltrate 600 Plus), 1 TAB PO DAILY Cholecalciferol (Vitamin D 1000 Unit), 1,000 INTER.UNIT PO DAILY Levothyroxine Sodium (Synthroid), 50 MCG PO DAILY Lisinopril (Lisinopril), 2.5 MG PO DAILY Metoprolol Tartrate (Lopressor) (Lopressor), 25 MG PO BID Metronidazole (Flagyl), 500 MG PO BID Warfarin Sod (Jantoven), 7.5 MG PO 6XWK Warfarin Sod (Jantoven), 5 MG PO WED Review of Systems Constitutional: + fever, + chills, + sweats, + weakness, + problem reported ( see HPI), No weight loss Eyes: No eye pain, No redness, No discharge, No diplopia ENT: No unusual epistaxis, No nasal symptoms, No sore throat, No tinnitus, No trouble swallowing Respiratory: No cough, No sputum, No wheezing, No dyspnea at rest, No hemoptysis Cardiovascular: No chest pain, No orthopnea, No PND, No edema Abdomen: + nausea, + diarrhea, + constipation, + problem reported (see HPI), No pain, No vomiting, No GI bleeding Musculoskeletal: No joint pain, No muscle pain, No swelling, No calf pain Genitourinary - Male: No hematuria, No dysuria, No urinary frequency, No urinary urgency Neurologic: No paralysis, No weakness, No numbness/tingling, No vertigo Psychiatric: No depression symptoms, No anxiety Hematologic / Lymphatic: No abnormal bleeding/bruising Integumentary: No rash, No itch Physical Ex - H&P Physical Exam Vital Signs Date Time Temp Pulse Resp B/P (MAP) Pulse Ox O2 Delivery O2 Flow Rate FiO2 07/04/17 16:52 101 14 118/77 99 07/04/17 16:01 106/75 07/04/17 14:31 100 26 98 07/04/17 14:30 113/75 07/04/17 14:01 104 17 91/57 96 07/04/17 13:31 103 17 97/62 96 07/04/17 13:01 119 19 07/04/17 12:59 106 07/04/17 12:41 36.8 85 18 82/58 95 Room Air General Appearance: no apparent distress, + pertinent finding (ill appearing, but non-toxic appearance) Head: normocephalic, atraumatic Eyes: normal inspection, PERRL, EOMI, sclerae normal ENT: hearing grossly normal, pharynx normal, + pertinent finding (dry mucous membranes) Neck: supple, no JVD, trachea midline Respiratory/Chest: chest non-tender, lungs clear, normal breath sounds, no respiratory distress, no accessory muscle use Cardiovascular: no edema, no murmur, normal peripheral pulses, + irregularly irregular Abdomen/GI: normal bowel sounds, non tender, soft Back: no CVA tenderness Extremities/Musculoskelatal: no calf tenderness, normal capillary refill, no pedal edema, normal range of motion, non-tender Neurologic/Psych: alert, normal mood/affect, oriented x 3 Skin: normal color, warm/dry, no rash Diagnostics - H&P Diagnostics Laboratory Results Results Past 24 Hours Test 07/04/17 13:30 07/04/17 15:43 Range/Units White Blood Count 17.52 4.8-10.8 K/uL Red Blood Count 4.41 4.7-6.1 M/uL Hemoglobin 14.4 14.0-18.0 g/dL Hematocrit 42.7 42-52 % Mean Corpuscular Volume 96.8 80-100 fL Mean Corpuscular Hemoglobin 32.7 25-34 pg Mean Corpuscular Hemoglobin Concent 33.7 32-36 g/dl Platelet Count 213 130-400 K/uL Mean Platelet Volume 11.4 7.4-10.4 fL Neutrophils (%) (Auto) 86.4 % Lymphocytes (%) (Auto) 5.0 % Monocytes (%) (Auto) 7.9 % Eosinophils (%) (Auto) 0.0 % Basophils (%) (Auto) 0.1 % Neutrophils # (Auto) 15.13 1.4-6.5 K/uL Lymphocytes # (Auto) 0.88 1.2-3.4 K/uL Monocytes # (Auto) 1.39 0.11-0.59 K/uL Eosinophils # (Auto) 0.00 0-0.5 K/uL Basophils # (Auto) 0.02 0-0.2 K/uL RDW Standard Deviation 53.1 36.4-46.3 fL RDW Coefficient of Variation 15.0 11.5-14.5 % Immature Granulocyte % (Auto) 0.6 % Immature Granulocyte # (Auto) 0.10 0.00-0.02 K/uL Prothrombin Time > 100.0 9.0-12.0 SECONDS Prothromb Time International Ratio > 10.0 0.9-1.1 Activated Partial Thromboplast Time 73.8 21.0-31.0 SECONDS Partial Thromboplastin Ratio 2.8 Sodium Level 136 136-145 mmol/L Potassium Level 4.0 3.5-5.1 mmol/L Chloride Level 103 98-107 mmol/L Carbon Dioxide Level 23 21-32 mmol/L Anion Gap 10.0 3-11 mmol/L Blood Urea Nitrogen 58 7-18 mg/dl Creatinine 2.40 0.60-1.40 mg/dl Est Creatinine Clear Calc Drug Dose 29.2 ml/min Estimated GFR () 29.5 Estimated GFR (Non- 25.4 BUN/Creatinine Ratio 24.3 10-20 Random Glucose 192 70-99 mg/dl Calcium Level 9.0 8.5-10.1 mg/dl Magnesium Level 2.3 1.8-2.4 mg/dl Total Bilirubin 0.5 0.2-1 mg/dl Direct Bilirubin 0.2 0-0.2 mg/dl Aspartate Amino Transf (AST/SGOT) 155 15-37 U/L Alanine Aminotransferase (ALT/SGPT) 83 12-78 U/L Alkaline Phosphatase 147 45-117 U/L Total Creatine Kinase 46 39-308 U/L Creatine Kinase MB 0.6 0.5-3.6 ng/ml Creatine Kinase MB Ratio 1.3 0-3.0 Troponin I 0.024 0-0.045 ng/ml Total Protein 6.5 6.4-8.2 gm/dl Albumin 2.2 3.4-5.0 gm/dl Lipase 104 73-393 U/L Thyroid Stimulating Hormone (TSH) 1.080 0.300-4.500 uIu/ml Urine Color ORANGE Urine Appearance TURBID CLEAR Urine pH 5.0 4.5-7.5 Urine Specific [place] 1.020 1.000-1.030 Urine Protein 2+ NEG Urine Glucose (UA) NEG NEG Urine Ketones NEG NEG Urine Occult Blood 3+ NEG Urine Nitrite POS NEG Urine Bilirubin NEG NEG Urine Urobilinogen NEG NEG Urine Leukocyte Esterase LARGE NEG Urine WBC (Auto) >30 0-5 /hpf Urine RBC (Auto) >30 0-4 /hpf Urine Hyaline Casts (Auto) 1-5 0-5 /lpf Urine Epithelial Cells (Auto) 10-20 0-5 /lpf Urine Bacteria (Auto) 4+ NEG Urine Yeast (Auto) NONE PRSENT Microbiology Results 07/04/17 Blood Culture, Received Pending 07/04/17 Blood Culture, Received Pending 07/04/17 Urine Culture, Received Pending Diagnostic Radiology CXR IMPRESSION: No acute cardiopulmonary findings. CT ABD/PELVIS: IMPRESSION: 1. No evidence of bowel obstruction. No evidence of free air 2. Normal appendix. Diverticulosis. No evidence of acute diverticulitis 3. Submucosal fat hypertrophy within the cecum. No evidence of significant active colitis on this noncontrast study 4. 6.6 cm left renal cyst. No renal or ureteral calculi identified. Bilateral perinephric stranding. 5. 17 mm calcified mesenteric nodule adjacent to the cecum. This a nonspecific finding which likely is secondary to either a carcinoid tumor or postinflammatory calcification 6. Mildly enlarged left paraaortic lymph node. 7. Mild prostamegaly 8. Nonspecific 7 mm hypodensity within the right hepatic lobe EKG EKG Poor data quality, interpretation may be adversely affected Atrial flutter with variable A-V block Right bundle branch block Left anterior fascicular block Bifascicular block Abnormal ECG When compared with ECG of 29-MAR-2017 14:11, No significant change Confirmed by CRISTINA GLOVER ([id number]) on 07/04/2017 1:54:06 PM Impression - H&P Impression Assessment and Plan SEPSIS SECONDARY TO UTI WBC: 17, hx fever >38C x 1 week, P: low 100's. BP initially 82/58 increased to 113/75 after 1L NSS in ER with improvement of hypotension Negative CXR. Recent hx c-diff finished 14 day course oral flagyl and reports resolution diarrhea. Denies abdominal pain/hematochezia. Pt with dehydration. No CVA tenderness on exam today. Pt reports feels improved after IV fluids in ER. CT abd/pelvis: 1. No evidence of bowel obstruction. No evidence of free air. 2. Normal appendix. Diverticulosis. No evidence of acute diverticulitis. 3. No evidence of significant active colitis on this noncontrast study. 4. 6.6 cm left renal cyst. No renal or ureteral calculi identified. Bilateral perinephric stranding. 5. 17 mm calcified mesenteric nodule adjacent to the cecum. This a nonspecific finding which likely is secondary to either a carcinoid tumor or postinflammatory calcification. 6. Mildly enlarged left paraaortic lymph node. 7. Mild prostamegaly. 8. Nonspecific 7 mm hypodensity within the right hepatic lobe. -initially decided to started on empiric abx - daptomycin & aztreonam. However UA results positive so will start Rocephin IV to treat UTI -pending blood cultures -pending procalcitonin -pending lactic acid -pending influenza swab -repeat cbc, cmp in am KRISTOPHER Cr 2.4, (06/01/17 - 1.25) Suspect dehydration. no kidney stone noted on CT scan -continue NSS IV -repeat cmp in am -try to avoid nephrotoxic agents when able SUPRA THERAPEUTIC INR INR>10. No active bleeding. Pt given 2.5mg vitamin K in ER -hold coumadin -INR in am A-FIB Hx a-fib on Coumadin, metoprolol. initially 119 now down to 90 after IV fluids. Suspect infection/dehydration -holding coumadin as supra therapeutic -continue metoprolol -repeat EKG in am, or prn CP -cardiology consult HYPOTHYROIDISM TSH: 1.08 -continue levothyroxine HYPERLIPIDEMIA -continue Lipitor MESENTERIC NODULE CT abd/pelvis 17 mm calcified mesenteric nodule adjacent to the cecum. This a nonspecific finding which likely is secondary to either a carcinoid tumor or postinflammatory calcification. -will need further workup HX RECENT C-DIFF completed 14 day course oral flagyl yesterday. Pt reports resolution diarrhea DVT PROPHYLAXIS -coumadin - pt supratherapeutic currently DISPOSITION -admit tele -Full Code as per discussion with pt -Follows with Dr Norris for routine care Pt was seen with Dr Whitman. See addendum ADDENDUM: I have seen and examined the patient and agree with the findings as above. Will cont with vanco PO while on new abx course. Prostate exam tonight was normal and not concerning for prostatitis, however, patient may require a longer abx course this time as symptoms persisted despite cefdinir x 10 days. Exam is otherwise unremarkable aside from some facial flushing that is present. As noted above, lesion seen on CT will require further attention/workup. J Carlos, DO Level of Care Telemetry Resuscitation Status FULL RESUSCITATION VTE Prophylaxis VTE Risk Assessment Done? Y/N: Yes Risk Level: Moderate Given or contraindicated: Warfarin (Coumadin) (pt supratherapeutic at this time ) Additional Copies To Cruz Norris M.D. Physical Exam (per Admitting): General Appearance: no apparent distress, + pertinent finding (ill appearing , but non-toxic appearance) Head: normocephalic, atraumatic Eyes: normal inspection, PERRL, EOMI, sclerae normal ENT: hearing grossly normal, pharynx normal, + pertinent finding (dry mucous membranes) Neck: supple, no JVD, trachea midline Respiratory/Chest: chest non-tender, lungs clear, normal breath sounds, no respiratory distress, no accessory muscle use Cardiovascular: no edema, no murmur, normal peripheral pulses, + irregularly irregular Abdomen/GI: normal bowel sounds, non tender, soft Back: no CVA tenderness Extremities/Musculoskelatal: no calf tenderness, normal capillary refill, no pedal edema, normal range of motion, non-tender Neurologic/Psych: alert, normal mood/affect, oriented x 3 Skin: normal color, warm/dry, no rash Hospital Course SEPSIS: -secondary to UTI and influenza B co-infection; CT scan mentions enlarged prostate with inflammatory changes consider possibility of prostatitis -urine and 2 out of 2 blood cultures showing E. coli, diallo-sensitive -presented with elevated procalcitonin/lactate, leukocytosis, tachycardia, hypotension and KRISTOPHER -CXR negative -ID consulted, appreciate recs -H/O c-diff -Recently finished 14 days of Flagyl -now on PO vanco on admission to continue for 14 days in total -CT abd/pelvis report: 1. No evidence of bowel obstruction. No evidence of free air. 2. Normal appendix. Diverticulosis. No evidence of acute diverticulitis. 3. No evidence of significant active colitis on this noncontrast study. 4. 6.6 cm left renal cyst. No renal or ureteral calculi identified. Bilateral perinephric stranding. 5. 17 mm calcified mesenteric nodule adjacent to the cecum. This a nonspecific finding which likely is secondary to either a carcinoid tumor or postinflammatory calcification. 6. Mildly enlarged left paraaortic lymph node. 7. Mild prostamegaly. 8. Nonspecific 7 mm hypodensity within the right hepatic lobe. 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 (last baseline 06/01/17 - 1.25) -most likely prerenal related to sepsis and hypovolemia; improved after fluids -no kidney stone noted on CT scan but mention of b/l perinephric stranding -NSS IV stopped as tolerating PO and KRISTOPHER resolved -avoid nephrotoxic agents when able -renal function is normalized SUPRATHERAPEUTIC INR: -INR>10 on admission, has been given vitamin K several days; INR 1.4 today; goal is to get INR under 2 for colonoscopy Tuesday -no bleeding noted other than the intramuscular hematoma; monitoring H&H very closely -will restart Coumadin and go slow INTRAMUSCULAR HEMATOMA: -patient with a large intramuscular hematoma of the right iliacus and iliopsoas musculature measuring up to 20.4 cm in length -monitor H&H closely; was initially 13 -will need to restart Coumadin on discharge with very close following of his Hemoglobin and his intramuscular hematoma as there is a risk of this expanding -Hb today 9.8 -will restart Coumadin on discharge A-FIB: with RVR on admission -known chronic a-fib -on metoprolol -HR was elevated from sepsis, improved following fluids -continue metoprolol, dose titrated up to achieve better control -Cardiology not officially consulted, but have been available to discuss this patient; have recommended increasing metoprolol to 75mg BID -also discussed restarting Coumadin, and how the patient will require very close monitoring of Hb and INR if he is to resume coumadin; can resume if there are no immediate plans for any additional procedures. HYPOTHYROIDISM: -continue levothyroxine HYPERLIPIDEMIA: -continue atorvastatin MESENTERIC MASS: -CT abd/pelvis 17 mm calcified mesenteric nodule adjacent to the cecum. This a nonspecific finding which likely is secondary to either a carcinoid tumor or postinflammatory calcification. This appears as a 3 cm mass on contrast CT; highly suspicious for malignancy -General Surgery consulted, recommended GI to obtain biopsy and surgery to follow up as outpatient; will need follow up with Dr. Sylvester as an outpatient (patient preference to see Dr. Sylvester) -GI consulted, -CT abd/pelvis: CT with IV contrast report: 1. Enhancing spiculated partially calcified mass of the right lower quadrant mesentery adjacent to the ileocecal valve causes tethering of the adjacent mesentery and measures up to 3.0 cm, very suspicious for ileal carcinoid tumor. Additionally, there is associated wall thickening of the terminal ileum with minimal fluid distention noted proximally. No bowel obstruction. Surgical consultation recommended. 2. Interval development of a large intramuscular hematoma of the right iliacus and iliopsoas musculature measuring up to 20.4 cm in length. 3. Low attenuating lesions of the liver are too small to characterize, largest of which measures up to 7 mm within the posterior right hepatic lobe. 4. Prostamegaly with possible cystitis. -S/P Colonoscopy -Biopsy taken ,await pathology -May need IR guided biopsy of the Intraabdominal mass DISPOSITION Discharge home today Total time spent on discharge = 35 minutes This includes examination of the patient, discharge planning, medication reconciliation, and communication with other providers. Discharge Instructions Date of Service Jul 12, 2017. Admission Reason for Admission: Dehydration, Leukocytosis Discharge Discharge Diagnosis / Problem: Sepsis,Mesenteric Mass/Ileal mass,C Diff Colitis ,AF Discharge Goals Goal(s): Prevent Disease Progression Activity Recommendations Activity Limitations: resume your previous activity . Instructions / Follow-Up Instructions / Follow-Up Dr Norris on 07/18/17 at 2:55PM,DR Sylvester on 07/27/17 at 11:15AM and GI on 12 /28/17 at 1:45 PM.Coagulation clinic notified Current Hospital Diet Patient's current hospital diet: AHA Diet (Heart Healthy) Discharge Diet Recommended Diet: AHA Diet (Heart Healthy) Procedures Procedures Performed: COLONOSCOPY Pending Studies Studies pending at discharge: no Medical Emergencies . Who to Call and When: Medical Emergencies: If at any time you feel your situation is an emergency, please call 911 immediately. . Non-Emergent Contact Non-Emergency issues call your: Primary Care Provider . Past History Medical & Surgical History: (1) E. coli septicemia (2) Influenza B (3) C. difficile colitis (4) Atrial fibrillation (5) HTN (hypertension) (6) Hypothyroidism . "Provider Documentation" section prepared by Carole Barker. . VTE Core Measure Inpt VTE Proph given/why not?: Warfarin (Coumadin) (pt supratherapeutic at this time), SCD's <Electronically signed by Carole Barker M.D.> Signed: 07/12/17 [id number] Signed: Additional Copies To Cruz Norris M.D.
[2017-07-13 17:32] LABS: 5-HIAA 16.7 mg/24 h (<=6.0)
== END 2017-07-12 16:15 | disposition home or self-care (01) | DRG 872 ==
LOC: C.EDB 12:32 → C.2E 16:09 → ENRESERV 16:15
PROVIDERS: ADMIT Hospitalist; ATTEND Internal Medicine
PROC: 0DBB8ZX Excision of Ileum, Via Natural or Artificial Opening Endoscopic, Diagnostic (ICD-10-PCS; principal; 2017-07-11 11:20)
PROC: 0DBC8ZX Excision of Ileocecal Valve, Via Natural or Artificial Opening Endoscopic, Diagnostic (ICD-10-PCS; principal; 2017-07-11 11:20)
DX: A41.51 Sepsis due to Escherichia coli [E. coli] (principal); N39.0 Urinary tract infection, site not specified; N17.9 Acute kidney failure, unspecified; J10.1 Influenza due to other identified influenza virus with other respiratory manifestations; I12.9 Hypertensive chronic kidney disease with stage 1 through stage 4 chronic kidney disease, or unspecified chronic kidney disease; E78.5 Hyperlipidemia, unspecified; E03.9 Hypothyroidism, unspecified; I48.91 Unspecified atrial fibrillation; N18.3 Chronic kidney disease, stage 3 (moderate); R74.0 Nonspecific elevation of levels of transaminase and lactic acid dehydrogenase [LDH]; K63.89 Other specified diseases of intestine; M79.81 Nontraumatic hematoma of soft tissue; R21 Rash and other nonspecific skin eruption; R79.1 Abnormal coagulation profile; Z79.01 Long term (current) use of anticoagulants; Z79.82 Long term (current) use of aspirin; Z79.899 Other long term (current) drug therapy; Z95.0 Presence of cardiac pacemaker; Z87.891 Personal history of nicotine dependence; Z88.0 Allergy status to penicillin; Z88.1 Allergy status to other antibiotic agents; Z86.19 Personal history of other infectious and parasitic diseases

== ENCOUNTER → 2017-08-05 | Outpatient (CLI) | payer OTHER ==
[~2017-08-05] MED LIST changes: +KFL500 PO; +LCTX PO; +NURSING VERBAL MED ORDER ONE; +VANC1SUS PO
--- NOTE | 2017-08-05 15:34 | DIAGNOSTIC IMAGING REPORT ---
MRI LIVER COMBO CLINICAL HISTORY: Cecal neuroendocrine tumor. Evaluate for liver metastasis. TECHNIQUE: Imaging was performed prior to and following IV contrast injection (10 cc intravenous Eovist). COMPARISON STUDY: CT scan dated 07/07/2017 FINDINGS: The patient was imaged in the axial and coronal planes. There are multiple T2 bright renal masses the largest of which arises from the mid to lower pole the left kidney measuring 7.5 cm. The findings are consistent with multiple cysts. No splenic masses are visualized. No pancreatic masses are visualized. No gallbladder abnormalities are visualized. There is no ductal dilatation. No adrenal masses are visualized. There is no evidence of pathologic upper abdominal lymphadenopathy. There are few scattered subcentimeter T2 bright hepatic lesions, most consistent with cysts. There is a right iliopsoas hematoma. IMPRESSION: 1. Scattered subcentimeter hepatic cysts. No evidence of hepatic metastasis 2. Multiple bilateral renal cysts including a 7.5 cm left renal cyst 3. Right iliopsoas hematoma Electronically signed by: Bienvenido Robles M.D. 08/05/2017 3:33 PM Dictated Date/Time: 08/05/2017 3:24 PM
== END | disposition home or self-care (01) ==
LOC: C.MRI 13:45
PROVIDERS: ATTEND Internal Medicine Gastroenterology
DX: K76.89 Other specified diseases of liver (principal); Q61.02 Congenital multiple renal cysts; M79.81 Nontraumatic hematoma of soft tissue; R16.0 Hepatomegaly, not elsewhere classified

== ENCOUNTER 2025-07-28 13:26 | Inpatient (IN) ==
[2025-07-28 14:47] LABS: Hematocrit (blood only) 34.2 % (42.0-52.0); Hemoglobin 11.5 g/dL (14.0-18.0); Immature Granulocytes # (auto) 0.01 K/uL (0.01-0.20); Immature Granulocytes % (auto) 0.6 %; Mean Corpuscular Hemoglobin 35.9 pg (25.0-34.0); Mean Corpuscular Volume 106.9 fL (80.0-100.0); Platelet Count 137 K/uL (130-400); RDW Standard Deviation 66.6 fL (36.4-46.3); Red Blood Count 3.20 M/uL (4.70-6.10); White Blood Count 1.71 K/ul (4.8-10.8)
[2025-07-28 15:03] LABS: Alanine Aminotransferase 27.0 U/L (7-52); Albumin Globulin Ratio 1.3 (0.9-2); Albumin Level 3.5 gm/dl (3.4-5.0); Alkaline Phosphatase 298.0 U/L (34-104); Anion Gap 8.0 (3-11); Bilirubin,Total 0.8 mg/dl (0.2-1.0); Blood Urea Nitrogen 31.0 mg/dl (6-23); Calcium 9.1 mg/dl (8.6-10.3); Carbon Dioxide 27.0 mmol/L (21-32); Chloride 103.0 mmol/L (98-107); Creatinine Clr Calc Pharmacy 44.2 ml/min; Globulin 2.8 gm/dl (2.5-4.0); Glucose 170.0 mg/dl (70-99(Fasting)); Potassium 4.8 mmol/L (3.5-5.1); Sodium 138.0 mmol/L (136-145); Total Protein 6.3 gm/dl (6.0-8.3)
[2025-07-28] MEDS ORDERED: ACETAMINOPHEN SUSP 160 MG/5 ML BTL PO STA (15:35)
[2025-07-28 15:46] LABS: Appearance Urine Clear (Clear); Bacteria Urine Automated None Seen (None Seen); Epithelial Cell Urine Auto 0-2 /hpf (0-2); Glucose Urine UA Negative (Negative); RBC Urine Automated 0-2 /hpf (0-2); WBC Urine Automated 0-5 /hpf (0-5)
[2025-07-28 15:47] LABS: Chlamydia pneumoniae PCR Not Detected (NotDetected); Coronavirus 229E PCR Not Detected (NotDetected); Coronavirus CoV-2 (COVID19)PCR Not Detected (NotDetected); Coronavirus HKU1 PCR Not Detected (NotDetected); Coronavirus NL63 PCR Not Detected (NotDetected); Coronavirus OC43PCR Not Detected (NotDetected); Human Metapneumovirus PCR Not Detected (NotDetected); Parainfluenza Virus 1 PCR Not Detected (NotDetected); Parainfluenza Virus 2 PCR Not Detected (NotDetected); Parainfluenza Virus 3 PCR Not Detected (NotDetected); Parainfluenza Virus 4 PCR Not Detected (NotDetected); Respiratory Syncytial VirusPCR Not Detected (NotDetected); Rhinovirus/Enterovirus PCR Not Detected (NotDetected)
[2025-07-28] MEDS: ACETAMINOPHEN 500 MG TAB PO ONE (15:58)
--- NOTE | 2025-07-28 16:21 | Emergency Department Note ---
Impression & Plan Fever, Immunocompromised state due to drug therapy ED Provider Note NAME: GREG WOODSON AGE: 84 SEX: M : 1940 ARRIVES VIA: Walk-In INFORMANT: Patient, ED PROVIDER(S): Laurel Epstein MD CHIEF COMPLAINT: Fever HPI: This is a 84-year-old male presenting for a fever. Patient states he has immunotherapy due to cancer. 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 He notes he last had his medication about a week ago. He notes new fever starting this morning. He had a slight cough and congestion. No shortness of breath, chest pain. No abdominal pain associate with this. His nausea and vomiting have since improved. He reports no diarrhea, constipation. ROS: See above HPI for pertinent positives & negatives. A total of 10 systems reviewed and were otherwise negative. PHYSICAL EXAMINATION: General: resting comfortably in no acute distress Head: Normocephalic and atraumatic Eyes: Normal inspection, extraocular muscles intact Ear, nose, throat: Normal external exam Neck: Normal range of motion Respiratory: lungs clear to auscultation bilaterally Cardiovascular: Regular rate/rhythm, no murmur GI: soft, nontender, no guarding or rebound Extremities: nontender, moves all extremities Neuro: The patient awake and alert, appropriately conversive, no focal deficits, symmetric faces Skin: Warm, dry, and intact MEDICAL DECISION MAKING: This is an 84-year-old male presenting for fever. Due to patient immunocompromise state, will do screening blood cultures, blood work, chest x- ray, prostrate panel and urinalysis -Bloodwork is reviewed showing leukopenia and slight anemia. Anemia is improving otherwise. Platelet count improving as well at 137. -Electrolytes within normal limits. Procalcitonin negative -Urinalysis negative for UTI -ECG independently interpreted by me with atrial flutter with variable AV block, rate of 112, right bundle branch block, no ST segment elevations consistent with STEMI criteria -Patient has occasional PVC/PAC. He has been asymptomatic from these without syncope. He states this is chronic issue for him he takes metoprolol and has a pacemaker. Pacemaker attempted to be interrogated however unsuccessful. Family comfortable without further assessment at this time. as he will follow with cardiology. - Patient reports clinically well, appears at his baseline. He states he feels well. Discussed patient versus discharge. He has been in blood pressures between 90s and 110s systolic as well as intermittent hypoxia. Patient initially wanted to go home however his blood pressure continued to downtrend. Went from 110s to 90, and now 80/60s with MAPs below 65. Due to his immunocompromise status, fever, hypoxia, he is comfortable staying overnight. Patient started empiric antibiotics at this time. Care discussed with Dr. Kunz for admission Differential diagnosis: Sepsis, pneumonia, URI, UTI, immunocompromise status, bacteremia Independent History obtained from: and son Diagnostics interpreted by me: ECG: See above Cardiac Monitoring: An order was placed for continuous cardiac monitoring. The monitor shows a rate of 87 with atrial flutter rhythm. Critical Care Note: I have personally spent 41 minutes of critical care time in the direct management of this patient. This includes bedside care, interpretation of diagnostic studies, and testing, discussion with consultants, patient, and family members, and other required patient management activities. This 41 minutes is in excess of all separately billable procedures. 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 Septic shock Neutropenic fever Immunocompromised state due to drug therapy (Acute) Fever (Acute) Encounter for pre-operative examination Diabetes History of chemotherapy Receiving chemo Anemia Encounter for insertion of venous access port Primary cancer of lower third of esophagus (Chronic) UTI (urinary tract infection) Vitamin D deficiency (Chronic) Hypothyroidism (Chronic) HTN (hypertension) (Chronic) Dyslipidemia (Chronic) Atrial fibrillation (Chronic) Leukocytosis Medical History Bifascicular block History of colon polyps 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 Hx of Clostridium difficile infection 2017 History of rectal abscess "1984, perirectal abscess I&D, fissure" Dyslipidemia HTN (hypertension) Hypothyroidism 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 11/2024 Hx pulmonary embolism 2007 History of COVID-19 (2023) mild, resolved On home O2 2 lpm HS Nocturnal hypoxia Atrial fibrillation follows w/ Dr Byrd History of anemia Diabetes History of chemotherapy ended in 01/2025 DVT (deep venous thrombosis) 03/2008 Hx of pilonidal cyst Esophageal mass Lung nodule Neuroendocrine cancer diagnosed July 2017; tx with octreotide every month Surgical History Port-A-Cath in place (07/04/25) Insertion MRI Compatible Access Port into Right Internal Jugular Vein(Right) - Javi Yanes MD, FACS History of tonsillectomy and adenoidectomy Hx of colonoscopy Pacemaker 2017- tachy- don syndrome- checked remotely from home H/O hernia repair Family History Father Liver cirrhosis due to alcoholism Cancer possibly liver cancer Mother Polio Brother Diabetes Kidney disease Hypertension Brother Myocardial infarction Son No problems noted. Son No problems noted. 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 Beliefs That Will Affect Care: None marital status: Current Living Situation: Spouse current occupational status: retired How many Children do You have: 2 Feels Safe at Home: Yes Safety Concerns: Feels Safe At This Time Childhood Exposure to Second-Hand Smoke: Yes Diet: diabetic caffeine: Yes (2 cups of coffee/day) during the past year weight has: remained stable Dental Care, Regularly: Yes Physical Activity Frequency: 1-2 Times per Week Seatbelt Use: always Sunscreen Use: Yes Assistive Devices: None Allergies Allergies Allergy/AdvReac Type Severity Reaction Status Date / Time ceftriaxone Allergy Intermediate ITCHY RASH Verified 07/28/25 17:02 clindamycin Allergy Unknown UNKNOWN Verified 07/28/25 17:02 Penicillins Allergy Unknown "happened Verified 07/28/25 17:02 as a child, not sure of reaction" peroxide Allergy Severe severe rash Uncoded 07/28/25 17:02 Home Meds Home Medications Medication Instructions Recorded Confirmed octreotide,microspheres 30 mg 30 mg IM MONTHLY 12/19/24 07/28/25 intramuscular susp, extended release terazosin 2 mg capsule 2 mg PO HS 12/19/24 07/28/25 metformin 500 mg tablet,extended 500 mg PO BID 01/01/25 07/28/25 release 24 hr atorvastatin 40 mg tablet (Lipitor) 40 mg PO HS 06/26/25 07/28/25 calcium 600 mg (as carbonate)-vit 1 tab PO DAILY 06/26/25 07/28/25 D3 20 mcg (800 unit) chewable tablet (Caltrate plus D) levothyroxine 50 mcg capsule 50 mcg PO DAILYBB 06/26/25 07/28/25 torsemide 10 mg tablet 10 mg PO Q OTHER DAY 06/26/25 07/28/25 warfarin 5 mg tablet 5 mg PO [id number] 06/26/25 07/28/25 cholecalciferol (vitamin D3) 25 25 mcg PO DAILY 07/01/25 07/28/25 mcg (1,000 unit) tablet (Vitamin D3) allopurinol 100 mg tablet 200 mg PO QAM 07/28/25 07/28/25 cyanocobalamin (vitamin B-12) 1,000 mcg PO WK 07/28/25 07/28/25 1,000 mcg tablet (Vitamin B-12) ferrous sulfate 325 mg (65 mg 325 mg PO DAILY 07/28/25 07/28/25 iron) tablet ipratropium bromide 21 mcg (0.03 2 spray intranasal QID PRN RHINITIS 07/28/25 07/28/25 %) nasal spray metoprolol succinate 50 mg 25 mg PO BID 07/28/25 07/28/25 tablet,extended release 24 hr tadalafil 5 mg tablet 5 mg PO DAILY 07/28/25 07/28/25 warfarin 5 mg tablet 7.5 mg PO WK 07/28/25 07/28/25 Results & Data (ED) Vital Signs Vital Signs - 24 hr 07/28/25 13:32 07/28/25 14:40 07/28/25 15:00 Temperature 37.8 C H Temperature Source Temporal Artery Scan Pulse Rate 103 H Pulse Rate [Apical] 101 H 86 Pulse Rate from SpO2 Sensor Respiratory Rate 19 19 19 Blood Pressure 117/70 Blood Pressure [Left Arm] 110/78 115/64 Blood Pressure Mean 85 Blood Pressure Mean [Left Arm] 88 81 Pulse Oximetry 90 92 92 Oxygen Delivery Method Room Air Room Air Room Air Oxygen Flow Rate Sepsis Recent Fever Within 48 Hours Yes Sepsis New/Unexplained Change in Mental Status N/A Sepsis Action Taken by Nursing No Action Required 07/28/25 15:40 07/28/25 15:40 07/28/25 15:40 Temperature Temperature Source Pulse Rate Pulse Rate [Apical] Pulse Rate from SpO2 Sensor Respiratory Rate Blood Pressure 122/75 122/75 122/75 Blood Pressure [Left Arm] Blood Pressure Mean 109 109 109 Blood Pressure Mean [Left Arm] Pulse Oximetry Oxygen Delivery Method Oxygen Flow Rate Sepsis Recent Fever Within 48 Hours Sepsis New/Unexplained Change in Mental Status Sepsis Action Taken by Nursing 07/28/25 15:42 07/28/25 15:51 07/28/25 16:00 Temperature 36.9 C Temperature Source Oral Pulse Rate 87 92 H Pulse Rate [Apical] Pulse Rate from SpO2 Sensor 91 H 91 H Respiratory Rate 20 26 H Blood Pressure Blood Pressure [Left Arm] Blood Pressure Mean Blood Pressure Mean [Left Arm] Pulse Oximetry 90 Oxygen Delivery Method Oxygen Flow Rate Sepsis Recent Fever Within 48 Hours Sepsis New/Unexplained Change in Mental Status Sepsis Action Taken by Nursing 07/28/25 16:00 07/28/25 16:00 07/28/25 16:00 Temperature Temperature Source Pulse Rate Pulse Rate [Apical] Pulse Rate from SpO2 Sensor Respiratory Rate Blood Pressure 114/69 114/69 114/69 Blood Pressure [Left Arm] Blood Pressure Mean 79 79 79 Blood Pressure Mean [Left Arm] Pulse Oximetry Oxygen Delivery Method Oxygen Flow Rate Sepsis Recent Fever Within 48 Hours Sepsis New/Unexplained Change in Mental Status Sepsis Action Taken by Nursing 07/28/25 16:00 07/28/25 16:00 07/28/25 16:00 Temperature Temperature Source Pulse Rate 86 Pulse Rate [Apical] Pulse Rate from SpO2 Sensor 86 Respiratory Rate 23 Blood Pressure 114/69 114/69 Blood Pressure [Left Arm] Blood Pressure Mean 79 79 Blood Pressure Mean [Left Arm] Pulse Oximetry 91 Oxygen Delivery Method Oxygen Flow Rate Sepsis Recent Fever Within 48 Hours Sepsis New/Unexplained Change in Mental Status Sepsis Action Taken by Nursing 07/28/25 16:12 07/28/25 16:17 07/28/25 16:27 Temperature Temperature Source Pulse Rate 85 89 79 Pulse Rate [Apical] Pulse Rate from SpO2 Sensor 83 Respiratory Rate 20 21 Blood Pressure Blood Pressure [Left Arm] Blood Pressure Mean Blood Pressure Mean [Left Arm] Pulse Oximetry 94 Oxygen Delivery Method Oxygen Flow Rate Sepsis Recent Fever Within 48 Hours Sepsis New/Unexplained Change in Mental Status Sepsis Action Taken by Nursing 07/28/25 16:30 07/28/25 16:42 07/28/25 16:51 Temperature Temperature Source Pulse Rate 85 91 H 94 H Pulse Rate [Apical] Pulse Rate from SpO2 Sensor Respiratory Rate 22 20 20 Blood Pressure Blood Pressure [Left Arm] Blood Pressure Mean Blood Pressure Mean [Left Arm] Pulse Oximetry Oxygen Delivery Method Oxygen Flow Rate Sepsis Recent Fever Within 48 Hours Sepsis New/Unexplained Change in Mental Status Sepsis Action Taken by Nursing 07/28/25 16:52 07/28/25 16:52 07/28/25 16:52 Temperature Temperature Source Pulse Rate Pulse Rate [Apical] Pulse Rate from SpO2 Sensor Respiratory Rate Blood Pressure 91/57 L 91/57 L 91/57 L Blood Pressure [Left Arm] Blood Pressure Mean 62 62 62 Blood Pressure Mean [Left Arm] Pulse Oximetry Oxygen Delivery Method Oxygen Flow Rate Sepsis Recent Fever Within 48 Hours Sepsis New/Unexplained Change in Mental Status Sepsis Action Taken by Nursing 07/28/25 16:52 07/28/25 16:52 07/28/25 17:00 Temperature Temperature Source Pulse Rate 76 Pulse Rate [Apical] Pulse Rate from SpO2 Sensor 86 Respiratory Rate 18 Blood Pressure 91/57 L 91/57 L Blood Pressure [Left Arm] Blood Pressure Mean 62 62 Blood Pressure Mean [Left Arm] Pulse Oximetry 90 Oxygen Delivery Method Oxygen Flow Rate Sepsis Recent Fever Within 48 Hours Sepsis New/Unexplained Change in Mental Status Sepsis Action Taken by Nursing 07/28/25 17:03 07/28/25 17:04 07/28/25 17:04 Temperature Temperature Source Pulse Rate 80 Pulse Rate [Apical] Pulse Rate from SpO2 Sensor 79 Respiratory Rate 18 Blood Pressure 90/54 L 90/54 L Blood Pressure [Left Arm] Blood Pressure Mean 64 64 Blood Pressure Mean [Left Arm] Pulse Oximetry 92 Oxygen Delivery Method Oxygen Flow Rate Sepsis Recent Fever Within 48 Hours Sepsis New/Unexplained Change in Mental Status Sepsis Action Taken by Nursing 07/28/25 17:04 07/28/25 17:04 07/28/25 17:04 Temperature Temperature Source Pulse Rate Pulse Rate [Apical] Pulse Rate from SpO2 Sensor Respiratory Rate Blood Pressure 90/54 L 90/54 L 90/54 L Blood Pressure [Left Arm] Blood Pressure Mean 64 64 64 Blood Pressure Mean [Left Arm] Pulse Oximetry Oxygen Delivery Method Oxygen Flow Rate Sepsis Recent Fever Within 48 Hours Sepsis New/Unexplained Change in Mental Status Sepsis Action Taken by Nursing 07/28/25 17:12 07/28/25 17:21 07/28/25 17:45 Temperature Temperature Source Pulse Rate 81 87 Pulse Rate [Apical] Pulse Rate from SpO2 Sensor 81 85 Respiratory Rate 23 17 Blood Pressure Blood Pressure [Left Arm] Blood Pressure Mean Blood Pressure Mean [Left Arm] Pulse Oximetry 90 92 86 L Oxygen Delivery Method Room Air Oxygen Flow Rate Sepsis Recent Fever Within 48 Hours Sepsis New/Unexplained Change in Mental Status Sepsis Action Taken by Nursing 07/28/25 17:45 Temperature Temperature Source Pulse Rate Pulse Rate [Apical] Pulse Rate from SpO2 Sensor Respiratory Rate Blood Pressure Blood Pressure [Left Arm] Blood Pressure Mean Blood Pressure Mean [Left Arm] Pulse Oximetry 94 Oxygen Delivery Method Nasal Cannula Oxygen Flow Rate 2 Sepsis Recent Fever Within 48 Hours Sepsis New/Unexplained Change in Mental Status Sepsis Action Taken by Nursing Laboratory Data 07/29/25 04:04 07/29/25 04:04 Lab Results 07/28/25 07/28/25 07/28/25 Range/Units 14:25 14:59 19:14 WBC 1.71 L (4.8-10.8) K/ul RBC 3.20 L (4.70-6.10) M/uL Hgb 11.5 L (14.0-18.0) g/dL Hct 34.2 L (42.0-52.0) % MCV 106.9 H (80.0-100.0) fL MCH 35.9 H (25.0-34.0) pg MCHC 33.6 (32.0-36.0) g/dL RDW Std Deviation 66.6 H (36.4-46.3) fL RDW Coeff of Parvin 17.8 H (11.5-14.5) % Plt Count 137 (130-400) K/uL MPV 11.6 (9.4-12.4) fL Immature Gran % (Auto) 0.6 % Neut % (Auto) 69.5 % Lymph % (Auto) 5.3 % Bureau % (Auto) 21.6 % Eos % (Auto) 1.8 % Baso % (Auto) 1.2 % Neut # (Auto) 1.19 L (1.40-6.50) K/uL Lymph # (Auto) 0.09 L (1.20-3.40) K/uL Bureau # (Auto) 0.37 (0.11-0.59) K/uL Eos # (Auto) 0.03 (0.00-0.50) K/uL Baso # (Auto) 0.02 (0.00-0.20) K/uL Immature Gran # (Auto) 0.01 (0.01-0.20) K/uL PT 19.2 H (9.0-12.0) Seconds INR 1.9 H (0.9-1.1) Sodium 138 (136-145) mmol/L Potassium 4.8 (3.5-5.1) mmol/L Chloride 103 (98-107) mmol/L Carbon Dioxide 27 (21-32) mmol/L Anion Gap 8 (3-11) BUN 31 H (6-23) mg/dl Creatinine 1.35 (0.6-1.4) mg/dl Est Cr Clr Drug Dosing 44.2 ml/min eGFR 52.09 BUN/Creatinine Ratio 23.0 H (10-20) Glucose 170 H (70-99(Fasting)) mg/dl Lactate 1.2 (0.4-2.0) mmol/L Calcium 9.1 (8.6-10.3) mg/dl Total Bilirubin 0.8 (0.2-1.0) mg/dl AST 31 (13-39) U/L ALT 27 (7-52) U/L Alkaline Phosphatase 298 H (34-104) U/L Total Protein 6.3 (6.0-8.3) gm/dl Albumin 3.5 (3.4-5.0) gm/dl Globulin 2.8 (2.5-4.0) gm/dl Albumin/Globulin Ratio 1.3 (0.9-2) Procalcitonin 0.18 (0-0.5) ng/ml Random Cortisol 30.66 mcg/dl Urine Color Yellow Urine Appearance Clear (Clear) Urine pH 5.0 (4.5-7.5) Ur Specific [place] 1.017 (1.000-1.030) Urine Protein Trace H (Negative) Urine Glucose (UA) Negative (Negative) Urine Ketones Trace H (Negative) Urine Blood Negative (Negative) Urine Nitrite Negative (Negative) Urine Bilirubin Negative (Negative) Urine Urobilinogen Negative (Negative) Ur Leukocyte Esterase Trace H (Negative) Urine WBC (Auto) 0-5 (0-5) /hpf Urine RBC (Auto) 0-2 (0-2) /hpf U Hyaline Cast (Auto) 3-5 H (0-2) /lpf U Epithel Cells (Auto) 0-2 (0-2) /hpf Urine Bacteria (Auto) None Seen (None Seen) Urine Comment Adenovirus (PCR) Not Detected (NotDetected) B. pertussis DNA (PCR) Not Detected (NotDetected) B.parapertussis DNA PCR Not Detected (NotDetected) C. pneumoniae DNA (PCR) Not Detected (NotDetected) Coronavirus OC43 (PCR) Not Detected (NotDetected) Coronavirus HKU1 (PCR) Not Detected (NotDetected) Coronavirus 229E (PCR) Not Detected (NotDetected) SARS-CoV-2 (PCR) Not Detected (NotDetected) Coronavirus NL63 (PCR) Not Detected (NotDetected) Human Metapneumovir PCR Not Detected (NotDetected) Influenza Type A (PCR) Not Detected (NotDetected) Influenza Type B (PCR) Not Detected (NotDetected) M. pneumoniae (PCR) Not Detected (NotDetected) Parainfluenza 1 (PCR) Not Detected (NotDetected) Parainfluenza 2 (PCR) Not Detected (NotDetected) Parainfluenza 3 (PCR) Not Detected (NotDetected) Parainfluenza 4 (PCR) Not Detected (NotDetected) RSV (PCR) Not Detected (NotDetected) Entero/Rhino (PCR) Not Detected (NotDetected) Administered Medications Albuterol (Albut/Ipratrop 3mg/0.5mg Neb 3 Ml Vial) 3 ml NEB QIDR [facility]; Protocol Stop: 08/28/25 10:59 Last Admin: 07/29/25 20:41 Dose: 3 ml Documented By: [id number] Admin: 07/29/25 15:07 Dose: 3 ml Documented By: Admin: 07/29/25 10:26 Dose: 3 ml Documented By: SHE Allopurinol (Allopurinol 100 Mg Tab) 200 mg PO QAM [facility] Stop: 08/28/25 08:59 Last Admin: 07/29/25 08:45 Dose: 200 mg Documented By: LILIA Atorvastatin Calcium (Atorvastatin 40 Mg Tab) 40 mg PO HS [facility] Stop: 08/27/25 20:59 Last Admin: 07/29/25 21:14 Dose: 40 mg Documented By: Admin: 07/28/25 21:40 Dose: 40 mg Documented By: SILVANA Levofloxacin/Dextrose (Levaquin/D5w) 750 mg in 150 mls @ 100 mls/hr IV Q48H [facility]; Protocol Stop: 08/03/25 23:59 Last Infusion: 07/28/25 23:34 Dose: Infused Documented By: Admin: 07/28/25 21:53 Dose: 100 mls/hr Documented By: SILVANA Vancomycin HCl 1,250 mg/ (Sodium Chloride) 275 mls @ 200 mls/hr IV Q24H [facility] Stop: 07/31/25 11:59 Last Infusion: 07/29/25 13:13 Dose: Infused Documented By: Admin: 07/29/25 11:21 Dose: 200 mls/hr Documented By: LILIA Insulin Aspart (Insulin Aspart Per Unit Charge) 0 units SC ACHS [facility] Stop: 08/27/25 20:59 Last Admin: 07/29/25 20:31 Dose: 1 units Documented By: FLORINDA Co-signed By: SHELBIE Admin: 07/29/25 17:46 Dose: 1 units Documented By: LIANA Co-signed By: RYAN Admin: 07/29/25 11:34 Dose: 2 units Documented By: LILIA Co-signed By: KODY Admin: 07/29/25 08:42 Dose: 3 units Documented By: LILIA Co-signed By: KODY Admin: 07/28/25 22:30 Dose: 3 units Documented By: SILVANA Co-signed By: [id number] Levothyroxine Sodium (Levothyroxine Sodium 50 Mcg Tablet) 50 mcg PO DAILYBB [facility] Stop: 08/28/25 06:29 Last Admin: 07/29/25 06:30 Dose: 50 mcg Documented By: SILVANA Magnesium Chloride (Magnesium Chloride W/Calcium 64mg Delayed Rel Tab) 64 mg PO BID [facility] Stop: 08/28/25 11:14 Last Admin: 07/29/25 20:33 Dose: 64 mg Documented By: Admin: 07/29/25 11:35 Dose: 64 mg Documented By: LAF Metoprolol Succinate (Metoprolol Succ 25mg Ext Rel Tab) 25 mg PO BID [facility] Stop: 08/28/25 20:59 Last Admin: 07/29/25 20:33 Dose: 25 mg Documented By: CP Warfarin Sodium (Warfarin Sod 6 Mg Tab) 6 mg PO DAILY@1600 [facility] Stop: 08/28/25 15:59 Last Admin: 07/29/25 17:13 Dose: 6 mg Documented By: LIANA Discontinued Medications Acetaminophen (Acetaminophen 500 Mg Tab) 1,000 mg PO ONE ONE Stop: 07/28/25 15:51 Last Admin: 07/28/25 15:58 Dose: 1,000 mg Documented By: ML Sodium Chloride (Nss) 1,000 mls @ 999 mls/hr IV .Q1H1M ONE Stop: 07/28/25 19:52 Last Infusion: 07/28/25 21:48 Dose: Infused Documented By: Admin: 07/28/25 19:56 Dose: 999 mls/hr Documented By: DANIA Vancomycin HCl 1,500 mg/ (Sodium Chloride) 530 mls @ 200 mls/hr IV NOW ONE Stop: 07/28/25 21:33 Last Infusion: 07/28/25 23:34 Dose: Infused Documented By: Admin: 07/28/25 19:56 Dose: 200 mls/hr Documented By: JT Sodium Chloride (Nss) 1,000 mls @ 999 mls/hr IV .Q1H1M [facility] Stop: 07/28/25 21:15 Last Infusion: 07/28/25 23:47 Dose: Infused Documented By: Admin: 07/28/25 22:44 Dose: 999 mls/hr Documented By: Infusion: 07/28/25 22:40 Dose: Infused Documented By: Admin: 07/28/25 21:39 Dose: 999 mls/hr Documented By: CLC Levofloxacin/Dextrose (Levaquin/D5w) 750 mg in 150 mls @ 100 mls/hr IV Q24H [facility]; Protocol Stop: 07/30/25 19:29 Last Admin: 07/28/25 20:48 Dose: Not Given Documented By: CLC Albumin Human (Albumin 5%) 250 mls @ 500 mls/hr IV ONE ONE Stop: 07/29/25 00:47 Last Infusion: 07/29/25 02:49 Dose: Infused Documented By: Admin: 07/29/25 00:49 Dose: 500 mls/hr Documented By: CLC Norepinephrine Bitartrate (Levophed/D5w) 4 mg in 250 mls @ 2.906 mls/hr IV .Q24H [facility]; Protocol Stop: 08/28/25 00:59 Last Titration: 07/29/25 08:12 Dose: Infused Documented By: LAF Co-signed By: SUDHEER Titration: 07/29/25 07:34 Dose: 0.01 mcg/kg/min, 2.9 mls/hr Documented By: LAF Co-signed By: KJAnna Titration: 07/29/25 07:13 Dose: 0.03 mcg/kg/min, 8.7 mls/hr Documented By: CLC Co-signed By: LAF Titration: 07/29/25 06:35 Dose: 0.03 mcg/kg/min, 8.7 mls/hr Documented By: CLC Co-signed By: AMS Titration: 07/29/25 05:40 Dose: 0.05 mcg/kg/min, 14.5 mls/hr Documented By: CLC Co-signed By: [id number] Titration: 07/29/25 02:18 Dose: 0.07 mcg/kg/min, 20.3 mls/hr Documented By: CLC Co-signed By: [id number] Admin: 07/29/25 01:37 Dose: 0.05 mcg/kg/min, 14.5 mls/hr Documented By: CLC Co-signed By: AMS Magnesium Sulfate/Dextrose (Magnesium Sulfate / D5w) 1 gm in 100 mls @ 50 mls/hr IV Q2H [facility] Stop: 07/29/25 09:29 Last Infusion: 07/29/25 10:35 Dose: Infused Documented By: Admin: 07/29/25 08:44 Dose: 50 mls/hr Documented By: Infusion: 07/29/25 08:00 Dose: Infused Documented By: Admin: 07/29/25 06:30 Dose: 50 mls/hr Documented By: CLC Imaging Data Radiologist's Impression: Chest X-Ray 07/28/25 14:47 HISTORY: Fever and sepsis. TECHNIQUE: Portable AP radiograph of the chest. COMPARISON: Portable AP radiograph of the chest dated 07/04/2025. FINDINGS: Right chest Mediport with catheter tip at the superior cavoatrial junction. Left subclavian approach dual-lead pacer. Small pleural effusions and bibasilar airspace opacities are similar to the prior study. Mild cardiomegaly. Enlarged central pulmonary arteries, which could be seen with pulmonary arterial hypertension. Left-sided aortic arch. Midline trachea. No acute osseous abnormality. The included upper abdomen is unremarkable. IMPRESSION: * No significant interval change. * Right greater than left basilar airspace opacities and small pleural effusions are similar to the prior study. * Cardiomegaly. Enlarged central pulmonary arteries, which can be seen with pulmonary arterial hypertension. Electronically signed by Greg Hernadez 07-28-2025 4:30 PM Discharge Plan Visit Data Chief Complaint: Illness Stated Complaint: NAUSEA, VOMITING, TEMP 102.4 ED Provider: Laurel Epstein Discharge Problem: Fever, Immunocompromised state due to drug therapy Patient Disposition: Admitted As Inpatient Condition: Good Discharge Instructions Interventions: ED Discharge Assessment Last Done: 07/28/25 20:10 Discharge Problem: Fever Qualifiers: Fever type: unspecified Qualified Code(s): R50.9 - Fever, unspecified
--- NOTE | 2025-07-28 16:31 | XRay Report ---
HISTORY: Fever and sepsis. TECHNIQUE: Portable AP radiograph of the chest. COMPARISON: Portable AP radiograph of the chest dated 07/04/2025. FINDINGS: Right chest Mediport with catheter tip at the superior cavoatrial junction. Left subclavian approach dual-lead pacer. Small pleural effusions and bibasilar airspace opacities are similar to the prior study. Mild cardiomegaly. Enlarged central pulmonary arteries, which could be seen with pulmonary arterial hypertension. Left-sided aortic arch. Midline trachea. No acute osseous abnormality. The included upper abdomen is unremarkable. IMPRESSION: * No significant interval change. * Right greater than left basilar airspace opacities and small pleural effusions are similar to the prior study. * Cardiomegaly. Enlarged central pulmonary arteries, which can be seen with pulmonary arterial hypertension. Electronically signed by Jamaal Hernadez 07-28-2025 4:30 PM
[2025-07-28] MEDS ORDERED: VANCOMYCIN CONSULT ACTIVE PRN (18:55)
--- NOTE | 2025-07-28 19:33 | History & Physical Report ---
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 Patient is critically ill requires hospital level care and intervention possibly specialty consultation. Admit to the ICU. Patient's MAP has been fluctuating around 85. He has yet to get sepsis fluid, however concerned patient may need pressors if he does not respond to the fluids. Antibiotics to cover neutropenic fever. Patient has multiple allergies. Will use Levaquin and vancomycin Suspect source of infection may be the lung, CT of the chest for further definition Monitor cultures Consult pneumatic tube repairer, per protocol for ICU admissions. Made aware via text Check INR, continue warfarin based on INR Continue other home medications as per Hold antihypertensives and diuretics Monitor glucose with insulin coverage Check EKG, patient with paroxysmal atrial fibrillation. Will need to be on telemetry monitoring due to the fact that beta-blockers now being held in the setting of his hypotension. Will continue anticoagulation. Consult oncology to make them aware of neutropenic fever and hospitalization. Was planned to get his cancer treatments tomorrow. History of Present Illness Chief Complaint: Fever with nausea and vomiting. 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 Underwent his first chemo and immunotherapy treatments approximately 3 weeks ago. His most recent treatment was held due to thrombocytopenia. Otherwise he feels as though he has been tolerating his treatments. Was doing fairly well, however, woke up this morning with some significant nausea and had emesis at least twice. There was no blood in the emesis. He then was feeling weaker and his checked his temperature. Reportedly had a temperature of 102 at home. This prompted them to seek attention in the emergency room. In the emergency room his workup was significant for some neutropenia. No other definitive findings for infection. Respiratory viral panel was negative. The initial plan was potentially to discharge him home, however as he stay longer in the ED his blood pressure trended downward. When he initially presented to the emergency room he had a systolic blood pressure of 117. Most recently he has had systolic blood pressures in the upper 80s low 90s. With this finding there was concern that he was trending more towards sepsis and our service was immediately contacted. Time of my evaluation the patient's temperature had declined. He had not received any antipyretics. at the bedside states that he did not take any Tylenol at home. He reports that he went to bed feeling his usual self. Woke up with this nausea and had the emesis episodes. He may have had a little bit of a dry cough over the past week but no purulent sputum. No problems with his bladder. Has had a little constipation over the last couple days. No swelling in his hands arms legs or feet. No rashes. No chest pain. No lightheadedness or dizziness. At the time of my evaluation the patient has yet to receive sepsis fluids or antibiotics. Allergies Allergy/AdvReac Type Severity Reaction Status Date / Time ceftriaxone Allergy Intermediate ITCHY RASH Verified 07/28/25 17:02 clindamycin Allergy Unknown UNKNOWN Verified 07/28/25 17:02 Penicillins Allergy Unknown "happened Verified 07/28/25 17:02 as a child, not sure of reaction" peroxide Allergy Severe severe rash Uncoded 07/28/25 17:02 Home Medications Medication Instructions Recorded Confirmed Type octreotide,microspheres 30 mg 30 mg IM MONTHLY 12/19/24 07/28/25 History intramuscular susp, extended release terazosin 2 mg capsule 2 mg PO HS 12/19/24 07/28/25 History metformin 500 mg tablet,extended 500 mg PO BID 01/01/25 07/28/25 History release 24 hr atorvastatin 40 mg tablet (Lipitor) 40 mg PO HS 06/26/25 07/28/25 History calcium 600 mg (as carbonate)-vit 1 tab PO DAILY 06/26/25 07/28/25 History D3 20 mcg (800 unit) chewable tablet (Caltrate plus D) levothyroxine 50 mcg capsule 50 mcg PO DAILYBB 06/26/25 07/28/25 History torsemide 10 mg tablet 10 mg PO Q OTHER DAY 06/26/25 07/28/25 History warfarin 5 mg tablet 5 mg PO [id number] 06/26/25 07/28/25 History cholecalciferol (vitamin D3) 25 25 mcg PO DAILY 07/01/25 07/28/25 History mcg (1,000 unit) tablet (Vitamin D3) allopurinol 100 mg tablet 200 mg PO QAM 07/28/25 07/28/25 History cyanocobalamin (vitamin B-12) 1,000 mcg PO WK 07/28/25 07/28/25 History 1,000 mcg tablet (Vitamin B-12) ferrous sulfate 325 mg (65 mg 325 mg PO DAILY 07/28/25 07/28/25 History iron) tablet ipratropium bromide 21 mcg (0.03 2 spray intranasal QID PRN RHINITIS 07/28/25 07/28/25 History %) nasal spray metoprolol succinate 50 mg 25 mg PO BID 07/28/25 07/28/25 History tablet,extended release 24 hr tadalafil 5 mg tablet 5 mg PO DAILY 07/28/25 07/28/25 History warfarin 5 mg tablet 7.5 mg PO WK 07/28/25 07/28/25 History Past Med/Surg History Problem List (Updated 07/28/25 @ 19:41 by Carlos Sandoval DO) Pulmonary hypertension Warfarin anticoagulation Paroxysmal atrial fibrillation Diabetes mellitus type 2, controlled, 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 Septic shock Neutropenic fever Immunocompromised state due to drug therapy (Acute) Fever (Acute) Encounter for pre-operative examination Diabetes History of chemotherapy Receiving chemo Anemia Encounter for insertion of venous access port Primary cancer of lower third of esophagus (Chronic) UTI (urinary tract infection) Vitamin D deficiency (Chronic) Hypothyroidism (Chronic) HTN (hypertension) (Chronic) Dyslipidemia (Chronic) Atrial fibrillation (Chronic) Leukocytosis Medical History (Updated 07/28/25 @ 19:41 by Carlos Sandoval DO) Bifascicular block History of colon polyps 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 Hx of Clostridium difficile infection 2016 History of rectal abscess "1984, perirectal abscess I&D, fissure" Dyslipidemia HTN (hypertension) Hypothyroidism 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 11/2024 Hx pulmonary embolism 2007 History of COVID-19 (2023) mild, resolved On home O2 2 lpm HS Nocturnal hypoxia Atrial fibrillation follows w/ Dr Byrd History of anemia Diabetes History of chemotherapy ended in 01/2025 DVT (deep venous thrombosis) 03/2008 Hx of pilonidal cyst Esophageal mass Lung nodule Neuroendocrine cancer diagnosed July 2017; tx with octreotide every month Surgical History (Updated 07/04/25 @ 11:26 by Rebecca Kraft, RN) Port-A-Cath in place (07/04/25) Insertion MRI Compatible Access Port into Right Internal Jugular Vein(Right) - Javi Yanes MD, FACS History of tonsillectomy and adenoidectomy Hx of colonoscopy Pacemaker 2018- tachy- don syndrome- checked remotely from home H/O hernia repair Family History Father Liver cirrhosis due to alcoholism Cancer possibly liver cancer Mother Polio Brother Diabetes Kidney disease Hypertension Brother Myocardial infarction Son No problems noted. Son No problems noted. Grandmother (Maternal) Stroke Heart disease Social History Smoking Status: Never smoker Tobacco Type: Cigarettes Age Started Using Tobacco: 16; Age Quit Using Tobacco: 42; packs per day: 1.5; Second Hand Exposure: Yes (hx); Do You Dip or Chew Tobacco: No; Hx Alcohol Use: Yes Alcohol type: beer Alcohol Intake Frequency: 4 or More x p er/Week Hx Substance Use: No Preferred Language: Urdu Communication Ability: Effective Visual Impairment: Limited Hearing Ability: Hard of Hearing It Help Desk Technician Required: No Beliefs That Will Affect Care: None marital status: Current Living Situation: Spouse current occupational status: retired How many Children do You have: 2 Feels Safe at Home: Yes Childhood Exposure to Second-Hand Smoke: Yes Diet: diabetic caffeine: Yes (2 cups of coffee/day) during the past year weight has: remained stable Dental Care, Regularly: Yes Physical Activity Frequency: 1-2 Times per Week Seatbelt Use: always Sunscreen Use: Yes Assistive Devices: Denture - Lower, Glasses and Oxygen - at Night Review of Systems Review of Systems: Pertinent positive and negative review of systems as mentioned in the HPI Physical Exam Physical Exam: Constitutional: Alert, moderately ill in appearance, slightly toxic HEENT: Mucous membranes slightly dry. Sclera clear Neck: Soft, no adenopathy Lungs: Decreased breath sounds, few crackles, no wheezes CV: S1-S2, irregular Abdomen: Soft, nontender, nondistended Extremities: No significant edema Musculoskeletal: No significant joint tenderness Neuro: No focal deficits, generally weak Psych: Cooperative, normal mood Results & Data Results & Data Vital Signs (Past 12 Hours) Vital Signs Temp Pulse Pulse Resp BP BP Pulse Ox 07/28/25 19:00 97/61 L 07/28/25 19:00 97/61 L 07/28/25 19:00 77 16 97/61 L 97 07/28/25 17:45 94 07/28/25 17:45 86 L 07/28/25 17:21 87 17 92 07/28/25 17:12 81 23 90 07/28/25 17:04 90/54 L 07/28/25 17:04 90/54 L 07/28/25 17:04 90/54 L 07/28/25 17:04 90/54 L 07/28/25 17:04 90/54 L 07/28/25 17:03 80 18 92 07/28/25 17:00 76 18 90 07/28/25 16:52 91/57 L 07/28/25 16:52 91/57 L 07/28/25 16:52 91/57 L 07/28/25 16:52 91/57 L 07/28/25 16:52 91/57 L 07/28/25 16:51 94 H 20 07/28/25 16:42 91 H 20 07/28/25 16:30 85 22 07/28/25 16:27 79 21 07/28/25 16:17 89 07/28/25 16:12 85 20 94 07/28/25 16:00 86 23 91 07/28/25 16:00 114/69 07/28/25 16:00 114/69 07/28/25 16:00 114/69 07/28/25 16:00 114/69 07/28/25 16:00 114/69 07/28/25 16:00 36.9 C 07/28/25 15:51 92 H 26 H 90 07/28/25 15:42 87 20 07/28/25 15:40 122/75 07/28/25 15:40 122/75 07/28/25 15:40 122/75 07/28/25 15:00 86 19 115/64 92 07/28/25 14:40 101 H 19 110/78 92 07/28/25 13:32 37.8 C H 103 H 19 117/70 90 O2 Del Method O2 Flow Rate 07/28/25 19:00 07/28/25 19:00 07/28/25 19:00 Nasal Cannula 2 07/28/25 17:45 Nasal Cannula 2 07/28/25 17:45 Room Air 07/28/25 17:21 07/28/25 17:12 07/28/25 17:04 07/28/25 17:04 07/28/25 17:04 07/28/25 17:04 07/28/25 17:04 07/28/25 17:03 07/28/25 17:00 07/28/25 16:52 07/28/25 16:52 07/28/25 16:52 07/28/25 16:52 07/28/25 16:52 07/28/25 16:51 07/28/25 16:42 07/28/25 16:30 07/28/25 16:27 07/28/25 16:17 07/28/25 16:12 07/28/25 16:00 07/28/25 16:00 07/28/25 16:00 07/28/25 16:00 07/28/25 16:00 07/28/25 16:00 07/28/25 16:00 07/28/25 15:51 07/28/25 15:42 07/28/25 15:40 07/28/25 15:40 07/28/25 15:40 07/28/25 15:00 Room Air 07/28/25 14:40 Room Air 07/28/25 13:32 Room Air Diagnostic Findings Reviewed imaging, laboratory and diagnostic studies. Pertinent findings as below. WBCs 1.7 Hemoglobin 11.5 Platelets 137 ANC 1.19 Electrolytes stable Creatinine 1.35 Glucose 170 Lactate 1.2 Transaminases stable Alk phos 298 Procalcitonin 0.18 Urinalysis unremarkable for signs of infection Respiratory viral BioFire negative Personally reviewed chest x-ray: Right lower lobe infiltrate/consolidation. Per radiology report this is unchanged from previous Blood cultures pending Code Status & VTE Plan VTE Prophylaxis Plan VTE Prophylaxis will be ordered: No Reason for no VTE drug order: Contraindicated
[2025-07-28] MEDS: VANCOMYCIN HCL 1,500 MG in SODIUM CHLORIDE 0.9% 500 ML IV ONE (19:56)
[2025-07-28] MEDS: SODIUM CHLORIDE 0.9% 1,000 ML IV ONE (19:56)
[2025-07-28 19:58] LABS: INR 1.9 (0.9-1.1); Prothrombin Time 19.2 Seconds (9.0-12.0)
--- NOTE | 2025-07-28 20:07 | Critical Care Consultation ---
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 Patient hypotensive in ED and given 2L crystalloid and broad spectrum ABX. Admit to ICU for concern of sepsis in immunocompromised state/neutropenia. Neuro: -No acute issue -Neuro intact. No focal deficits. -Monitor and image as appropriate. CV: Hypotension -BP in ED downtrended to 80s w/ MAP < 65. -Give 2L crystalloid w/ improvement in hemodynamics. -Will hold on vasopressors at this time -Lactate 1.2 Pulm: Pulmonary hypertension Group 2 v.Group 4 -RVSP 40-45. No RHC noted. -Maintain SpO2 > 90% -On tadalafil and torsemide at home. Currently held due to hypotension. Restart once hemodynamics improve. GI: Nausea/vomiting -Resolved -Cont zofran -Advance diet as tolerated. : CKD stage 3a -No acute issue -Creatinine 1.35 -BUN 31 -Monitor renal function on am labs Heme/onc: Megaloblastic anemia; Thrombocytopenia likely in setting of chemo treatments. -Hgb 11.5 -Hct 34.2 -MCV 106.9 -Plt 137 -On B12 at home. Blood counts stable and platelets improved from 47 on 07/22/2025. Stage IV esophageal cancer -Follows with Dr. Vargas -Last chemo 3 weeks ago. Supposed to have appointment on 07/29/25. Last treatment held due to thrombocytopenia. Endo: Diabetes mellitus Type II; Stress hyperglycemia -BG 170 -Hyperglycemia protocol -Maintain BG < 180 ID: Leukopenia; Neutropenia; concern for sepsis; neutropenic fever -WBC 1.71 -Neutrophil count 1.19. Mild Neutropenia. -Afebrile while inpatient. notes 102 degree fever at home. -CXR with bilateral lower lobe infiltrates and small effusion. This is similar to CXR on 07/04/25. -CT chest showed -UA negative -Procal 0.18 -RVP negative -Blood cultures pending -Cont empiric ABX with vancomycin and Levaquin at this time. -Monitor/follow cultures and deescalate discontinue as appropriate. Prophylaxis: -GI prophylaxis not indicated. -SCD for mechanical DVT prophylaxis -Cont Coumadin. Disposition: ICU for continued evaluation and management of concern for sepsis in setting of immunocompromised state/neutropenia with high risk for decline. Patient is full code. Patient and updated at bedside by ICU provider on 07/28/25. Thank you for allowing us to participate in your care. Please feel free to reach out with questions or concerns. I have personally spent 56 minutes of critical care time in the direct management of this patient. This is a life/limb threatening event. This includes time spent evaluating patient, direct bedside care, chart review, placing orders, interpretation of diagnostic studies, discussion with consultants, patient, and family members, as well as other required patient management activities. This time is exclusive of all separately billable procedures, and teaching time and separate from and in addition to any other critical care service time. Supervising Physician Co-Signing Physician Notes I have seen and evaluated the patient with the FIELD SERVICES MANAGER. I agree with the documented findings and plan in addition to the following. Please see my full note from 07/29/2025 for additional details on assessment and plan. History of Present Illness Reason for Consultation: Neutropenic fever; concern for sepsis Attending Physician: Dr. 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 Patient went to bed in his usual state of health on th evening of 07/27/25. In the morning he awoke feeling nauseous and vomited. Patient's took his temp and noted to be 102 degrees Fahrenheit. Patient was brought to the ED where his workup was benign other than some neutropenia. The plan was to discharge the patient home but on re-evaluation it was noted that his blood pressure dropped to the 80's and MAP was less than 65. Patient given 2L of crystalloid, started on Levaquin and vancomycin, and hospitalist was consulted for admission. Given the concern for sepsis in immunocompromised state the patient was admitted to the ICU for continued evaluation and management. Allergies Allergy/AdvReac Type Severity Reaction Status Date / Time ceftriaxone Allergy Intermediate ITCHY RASH Verified 07/28/25 17:02 clindamycin Allergy Unknown UNKNOWN Verified 07/28/25 17:02 Penicillins Allergy Unknown "happened Verified 07/28/25 17:02 as a child, not sure of reaction" peroxide Allergy Severe severe rash Uncoded 07/28/25 17:02 Home Medications Medication Instructions Recorded Confirmed Type octreotide,microspheres 30 mg 30 mg IM MONTHLY 12/19/24 07/28/25 History intramuscular susp, extended release terazosin 2 mg capsule 2 mg PO HS 12/19/24 07/28/25 History metformin 500 mg tablet,extended 500 mg PO BID 01/01/25 07/28/25 History release 24 hr atorvastatin 40 mg tablet (Lipitor) 40 mg PO HS 06/26/25 07/28/25 History calcium 600 mg (as carbonate)-vit 1 tab PO DAILY 06/26/25 07/28/25 History D3 20 mcg (800 unit) chewable tablet (Caltrate plus D) levothyroxine 50 mcg capsule 50 mcg PO DAILYBB 06/26/25 07/28/25 History torsemide 10 mg tablet 10 mg PO Q OTHER DAY 06/26/25 07/28/25 History warfarin 5 mg tablet 5 mg PO [id number] 06/26/25 07/28/25 History cholecalciferol (vitamin D3) 25 25 mcg PO DAILY 07/01/25 07/28/25 History mcg (1,000 unit) tablet (Vitamin D3) allopurinol 100 mg tablet 200 mg PO QAM 07/28/25 07/28/25 History cyanocobalamin (vitamin B-12) 1,000 mcg PO WK 07/28/25 07/28/25 History 1,000 mcg tablet (Vitamin B-12) ferrous sulfate 325 mg (65 mg 325 mg PO DAILY 07/28/25 07/28/25 History iron) tablet ipratropium bromide 21 mcg (0.03 2 spray intranasal QID PRN RHINITIS 07/28/25 History %) nasal spray metoprolol succinate 50 mg 25 mg PO BID 07/28/25 07/28/25 History tablet,extended release 24 hr tadalafil 5 mg tablet 5 mg PO DAILY 07/28/25 07/28/25 History warfarin 5 mg tablet 7.5 mg PO WK 07/28/25 07/28/25 History Patient History Medical History (Updated 07/28/25 @ 19:41 by Carlos Sandoval DO) Bifascicular block History of colon polyps 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 Hx of Clostridium difficile infection 2017 History of rectal abscess "1984, perirectal abscess I&D, fissure" Dyslipidemia HTN (hypertension) Hypothyroidism 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 11/2024 Hx pulmonary embolism 2007 History of COVID-19 (2023) mild, resolved On home O2 2 lpm HS Nocturnal hypoxia Atrial fibrillation follows w/ Dr Byrd History of anemia Diabetes History of chemotherapy ended in 01/2025 DVT (deep venous thrombosis) 03/2008 Hx of pilonidal cyst Esophageal mass Lung nodule Neuroendocrine cancer diagnosed July 2017; tx with octreotide every month Surgical History (Updated 07/04/25 @ 11:26 by Rebecca Kraft RN) Port-A-Cath in place (07/04/25) Insertion MRI Compatible Access Port into Right Internal Jugular Vein(Right) - Javi Yanes MD, FACS History of tonsillectomy and adenoidectomy Hx of colonoscopy Pacemaker 2018- tachy- don syndrome- checked remotely from home H/O hernia repair Family History Father Liver cirrhosis due to alcoholism Cancer possibly liver cancer Mother Polio Brother Diabetes Kidney disease Hypertension Brother Myocardial infarction Son No problems noted. Son No problems noted. Grandmother (Maternal) Stroke Heart disease Social History Smoking Status: Former smoker Tobacco Type: Cigarettes Age Started Using Tobacco: 16; Age Quit Using Tobacco: 42; packs per day: 1.5; Smoking End Date: 1982; Second Hand Exposure: Yes (hx); Do You Dip or Chew Tobacco: No; Hx Alcohol Use: No Hx Substance Use: No Preferred Language: Gabonese Communication Ability: Effective Visual Impairment: Limited Hearing Ability: Hard of Hearing Resident Director Required: No Beliefs That Will Affect Care: None marital status: Current Living Situation: Spouse current occupational status: retired How many Children do You have: 2 Feels Safe at Home: Yes Safety Concerns: Feels Safe At This Time Childhood Exposure to Second-Hand Smoke: Yes Diet: diabetic caffeine: Yes (2 cups of coffee/day) during the past year weight has: remained stable Dental Care, Regularly: Yes Physical Activity Frequency: 1-2 Times per Week Seatbelt Use: always Sunscreen Use: Yes Assistive Devices: Denture - Lower, Glasses and Oxygen - at Night Review of Systems Review of Systems: All systems reviewed & are unremarkable except as noted in HPI & below Physical Exam Physical Exam: VITALS: Reviewed. WEIGHT/BMI reviewed. GEN: Pleasant, well-developed, NAD. PSYCH: Good Judgment. AOx3. Normal memory, mood, and affect. HEENT -Head: NC/AT; -Eyes: PERRL, EOMI. No discharge or redn ess; -Ears: External ears are normal. -Nose: Normal nares. NECK: Supple, with no masses. CV: RRR, no m/r/g. LUNGS: CTAB, no w/r/c. ABD: Soft, NT/ND, NBS, no masses or organomegaly. : voiding SKIN: Warm, well perfused. No skin rashes or abnormal lesions. MSK: No deformities, Normal gait. EXT: No clubbing, cyanosis, or edema. NEURO: Normal muscle strength and tone. No focal deficits. Results & Data Results & Data Vital Signs (Past 12 Hours) Vital Signs Temp Pulse Pulse Resp BP BP Pulse Ox 07/28/25 19:59 37.0 C 72 16 110/63 98 07/28/25 19:00 97/61 L 07/28/25 19:00 97/61 L 07/28/25 19:00 77 16 97/61 L 97 07/28/25 17:45 94 07/28/25 17:45 86 L 07/28/25 17:21 87 17 92 07/28/25 17:12 81 23 90 07/28/25 17:04 90/54 L 07/28/25 17:04 90/54 L 07/28/25 17:04 90/54 L 07/28/25 17:04 90/54 L 07/28/25 17:04 90/54 L 07/28/25 17:03 80 18 92 07/28/25 17:00 76 18 90 07/28/25 16:52 91/57 L 07/28/25 16:52 91/57 L 07/28/25 16:52 91/57 L 07/28/25 16:52 91/57 L 07/28/25 16:52 91/57 L 07/28/25 16:51 94 H 20 07/28/25 16:42 91 H 20 07/28/25 16:30 85 22 07/28/25 16:27 79 21 07/28/25 16:17 89 07/28/25 16:12 85 20 94 07/28/25 16:00 86 23 91 07/28/25 16:00 114/69 07/28/25 16:00 114/69 07/28/25 16:00 114/69 07/28/25 16:00 114/69 07/28/25 16:00 114/69 07/28/25 16:00 36.9 C 07/28/25 15:51 92 H 26 H 90 07/28/25 15:42 87 20 07/28/25 15:40 122/75 07/28/25 15:40 122/75 07/28/25 15:40 122/75 07/28/25 15:00 86 19 115/64 92 07/28/25 14:40 101 H 19 110/78 92 07/28/25 13:32 37.8 C H 103 H 19 117/70 90 O2 Del Method O2 Flow Rate 07/28/25 19:59 Room Air 07/28/25 19:00 07/28/25 19:00 07/28/25 19:00 Nasal Cannula 2 07/28/25 17:45 Nasal Cannula 2 07/28/25 17:45 Room Air 07/28/25 17:21 07/28/25 17:12 07/28/25 17:04 07/28/25 17:04 07/28/25 17:04 07/28/25 17:04 07/28/25 17:04 07/28/25 17:03 07/28/25 17:00 07/28/25 16:52 07/28/25 16:52 07/28/25 16:52 07/28/25 16:52 07/28/25 16:52 07/28/25 16:51 07/28/25 16:42 07/28/25 16:30 07/28/25 16:27 07/28/25 16:17 07/28/25 16:12 07/28/25 16:00 07/28/25 16:00 07/28/25 16:00 07/28/25 16:00 07/28/25 16:00 07/28/25 16:00 07/28/25 16:00 07/28/25 15:51 07/28/25 15:42 07/28/25 15:40 07/28/25 15:40 07/28/25 15:40 07/28/25 15:00 Room Air 07/28/25 14:40 Room Air 07/28/25 13:32 Room Air Critical Care Results & Data Vital Signs (Past 12 Hours) Vital Signs Temp Pulse Pulse Resp BP BP Pulse Ox 07/28/25 19:59 37.0 C 72 16 110/63 98 07/28/25 19:00 97/61 L 07/28/25 19:00 97/61 L 07/28/25 19:00 77 16 97/61 L 97 07/28/25 17:45 94 07/28/25 17:45 86 L 07/28/25 17:21 87 17 92 07/28/25 17:12 81 23 90 07/28/25 17:04 90/54 L 07/28/25 17:04 90/54 L 07/28/25 17:04 90/54 L 07/28/25 17:04 90/54 L 07/28/25 17:04 90/54 L 07/28/25 17:03 80 18 92 07/28/25 17:00 76 18 90 07/28/25 16:52 91/57 L 07/28/25 16:52 91/57 L 07/28/25 16:52 91/57 L 07/28/25 16:52 91/57 L 07/28/25 16:52 91/57 L 07/28/25 16:51 94 H 20 07/28/25 16:42 91 H 20 07/28/25 16:30 85 22 07/28/25 16:27 79 21 07/28/25 16:17 89 07/28/25 16:12 85 20 94 07/28/25 16:00 86 23 91 07/28/25 16:00 114/69 07/28/25 16:00 114/69 07/28/25 16:00 114/69 07/28/25 16:00 114/69 07/28/25 16:00 114/69 07/28/25 16:00 36.9 C 07/28/25 15:51 92 H 26 H 90 07/28/25 15:42 87 20 07/28/25 15:40 122/75 07/28/25 15:40 122/75 07/28/25 15:40 122/75 07/28/25 15:00 86 19 115/64 92 07/28/25 14:40 101 H 19 110/78 92 07/28/25 13:32 37.8 C H 103 H 19 117/70 90 O2 Del Method O2 Flow Rate 07/28/25 19:59 Room Air 07/28/25 19:00 07/28/25 19:00 07/28/25 19:00 Nasal Cannula 2 07/28/25 17:45 Nasal Cannula 2 07/28/25 17:45 Room Air 07/28/25 17:21 07/28/25 17:12 07/28/25 17:04 07/28/25 17:04 07/28/25 17:04 07/28/25 17:04 07/28/25 17:04 07/28/25 17:03 07/28/25 17:00 07/28/25 16:52 07/28/25 16:52 07/28/25 16:52 07/28/25 16:52 07/28/25 16:52 07/28/25 16:51 07/28/25 16:42 07/28/25 16:30 07/28/25 16:27 07/28/25 16:17 07/28/25 16:12 07/28/25 16:00 07/28/25 16:00 07/28/25 16:00 07/28/25 16:00 07/28/25 16:00 07/28/25 16:00 07/28/25 16:00 07/28/25 15:51 07/28/25 15:42 07/28/25 15:40 07/28/25 15:40 07/28/25 15:40 07/28/25 15:00 Room Air 07/28/25 14:40 Room Air 07/28/25 13:32 Room Air Lab & Micro Results (Past 24 Hours) RBC 2.83 M/uL (4.70-6.10) L 07/29/25 WBC 1.57 K/ul (4.8-10.8) L 07/29/25 Hgb 10.0 g/dL (14.0-18.0) L 07/29/25 Hct 31.0 % (42.0-52.0) L 07/29/25 MCV 109.5 fL (80.0-100.0) H 07/29/25 MCH 35.3 pg (25.0-34.0) H 07/29/25 MCHC 32.3 g/dL (32.0-36.0) 07/29/25 RDW Standard Deviation 68.1 fL (36.4-46.3) H 07/29/25 RDW Coefficient of Variation 18.1 % (11.5-14.5) H 07/29/25 Plt Count 123 K/uL (130-400) L 07/29/25 MPV 11.1 fL (9.4-12.4) 07/29/25 Nucleated Red Blood Cells % (auto) 1.3 % 07/29 Nucleated RBC Absolute Count (auto) 0.02 K/uL (0.00-0.12) 1 Neutrophils (%) (Auto) 69.5 % 07/28/25 Lymphocytes (%) (Auto) 5.3 % 07/28/25 Monocytes # (Auto) 0.37 K/uL (0.11-0.59) 07/28/25 Eosinophils # (Auto) 0.03 K/uL (0.00-0.50) 07/28/25 Immature Granulocyte % (Auto) 0.6 % 07/28/25 Neutrophils # (Auto) 1.19 K/uL (1.40-6.50) L 07/28/25 Lymphocytes # (Auto) 0.09 K/uL (1.20-3.40) L 07/28/25 Monocytes # (Auto) 0.37 K/uL (0.11-0.59) 07/28/25 Eosinophils # (Auto) 0.03 K/uL (0.00-0.50) 07/28/25 Basophils # (Auto) 0.02 K/uL (0.00-0.20) 07/28/25 Immature Granulocyte # (Auto) 0.01 K/uL (0.01-0.20) 5 Na 139 mmol/L (136-145) 07/29/25 K 4.7 mmol/L (3.5-5.1) 07/29/25 Cl 108 mmol/L (98-107) H 07/29/25 CO2 26 mmol/L (21-32) 07/29/25 Anion Gap 5 (3-11) 07/29/25 BUN 27 mg/dl (6-23) H 07/29/25 Creatinine 1.30 mg/dl (0.6-1.4) 07/29/25 BUN/Creatinine Ratio 20.8 (10-20) H 07/29/25 Glu 169 mg/dl (70-99(Fasting)) H 07/29/25 Ca 8.2 mg/dl (8.6-10.3) L 07/29/25 Phosphorus Level 3.0 mg/dl (2.5-4.9) 07/29/25 Total Bilirubin 0.8 mg/dl (0.2-1.0) 07/28/25 AST 31 U/L (13-39) 07/28/25 ALT 27 U/L (7-52) 07/28/25 Alkaline Phosphatase 298 U/L (34-104) H 07/28/25 TP 6.3 gm/dl (6.0-8.3) 07/28/25 Albumin 3.5 gm/dl (3.4-5.0) 07/28/25 Globulin 2.8 gm/dl (2.5-4.0) 07/28/25 Albumin/Globulin Ratio 1.3 (0.9-2) 07/28/25 Mg 1.7 mg/dl (1.7-2.4) 07/29/25 04:04 Calcium Level 8.2 mg/dl (8.6-10.3) L 07/29/25 04:04 Prothromb Time International Ratio 1.8 (0.9-1.1) H 07/29/25 04 :04 Diagnostic Findings (Past 24 Hours) Chest X-Ray 07/28/25 14:47 HISTORY: Fever and sepsis. TECHNIQUE: Portable AP radiograph of the chest. COMPARISON: Portable AP radiograph of the chest dated 07/04/2025. FINDINGS: Right chest Mediport with catheter tip at the superior cavoatrial junction. Left subclavian approach dual-lead pacer. Small pleural effusions and bibasilar airspace opacities are similar to the prior study. Mild cardiomegaly. Enlarged central pulmonary arteries, which could be seen with pulmonary arterial hypertension. Left-sided aortic arch. Midline trachea. No acute osseous abnormality. The included upper abdomen is unremarkable. IMPRESSION: * No significant interval change. * Right greater than left basilar airspace opacities and small pleural effusions are similar to the prior study. * Cardiomegaly. Enlarged central pulmonary arteries, which can be seen with pulmonary arterial hypertension. 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
[2025-07-28] MEDS ORDERED: DEXTROSE 50% 50 ML SYRINGE IV PRN (20:40)
[2025-07-28] MEDS ORDERED: ACETAMINOPHEN 325 MG TAB PO PRN (20:40)
[2025-07-28] MEDS ORDERED: CARBOHYDRATES FOR HYPOGLYCEMIA PO PRN (20:40)
[2025-07-28] MEDS ORDERED: GLUCOSE 40% GEL 15 GM TUBE PO PRN (20:40)
[2025-07-28] MEDS ORDERED: ALUMINUM/MAGNESIUM SUSP 30 ML UDC PO PRN (20:40)
[2025-07-28] MEDS ORDERED: GLUCAGON FOR INJ 1 MG VIAL SQ PRN (20:40)
[2025-07-28] MEDS ORDERED: GLUCOSE 10 TAB/TUBE PO PRN (20:40)
[2025-07-28] MEDS ORDERED: ONDANSETRON INJ 2 MG/ML 2 ML VIAL IV PRN (20:40)
[2025-07-28] MEDS: SODIUM CHLORIDE 0.9% 1,000 ML IV SCH (21:39)
[2025-07-28] MEDS: ATORVASTATIN 40 MG TAB PO SCH (21:40)
[2025-07-28] MEDS: INSULIN ASPART PER UNIT CHARGE SC SCH (22:30)
[2025-07-29] MEDS: ALBUMIN 5% 250 ML IV ONE (00:49)
[2025-07-29] MEDS ORDERED: STAT IV Infusion **Titration per Protocol STA (00:52)
[2025-07-29] MEDS: NOREPINEPHRINE/D5W 4 MG/250 ML PLCT IV SCH (01:37)
--- NOTE | 2025-07-29 02:53 | CT Scan Report ---
CLINICAL HISTORY: Sepsis. COMPARISON: None. TECHNIQUE: CT of the chest was obtained from the thoracic inlet through the lung bases without the administration of intravenous contrast. All CT scans at this facility use dose modulation, iterative reconstruction, and/or weight-based dosing when appropriate to reduce radiation dose to as low as reasonably achievable. CONTRAST DOSE: Noncontrast exam. FINDINGS: Lung, pleura: Few peripherally arranged nodular opacities are seen in both lobes of the lung with some of these showing ground glass opacification. One of these in the apical segment of the left upper lobe measuring 0.5 cm (Image [id number]). Moderate right sided and mild left sided pleural effusion is noted with underlying atelectatic changes. No evidence of pneumothorax. Heart, mediastinum: Imaged portions of the heart, great vessels and esophagus are normal. Atherosclerotic calcifications are observed. Left sided optimally placed pacemaker is noted. right sided optimally placed infusion devices are also seen. Upper abdomen: The images of the upper abdominal viscera including the liver, spleen, pancreas and adrenals appear unremarkable. Musculoskeletal: Imaged dorsal spine shows moderate degenerative changes. No gross lytic or sclerotic bony lesion seen. IMPRESSION: 1. Moderate right sided and mild left sided pleural effusion. Pleural fluid DR is advised. 2. Few peripherally arranged nodular opacities in both lobes of the lung with some of these showing ground glass opacification. Findings may be infectious in etiology. However, the possibility of malignancy cannot be excluded. Appropriate clinical history and workup is advised. 3. Moderate thoracic spondylosis. Electronically signed by Sigifredo Moreira 07-29-2025 02:52 AM
[2025-07-29 04:38] LABS: Hematocrit (blood only) 31.0 % (42.0-52.0); Hemoglobin 10.0 g/dL (14.0-18.0); Mean Corpuscular Hemoglobin 35.3 pg (25.0-34.0); Mean Corpuscular Volume 109.5 fL (80.0-100.0); Platelet Count 123 K/uL (130-400); RDW Standard Deviation 68.1 fL (36.4-46.3); Red Blood Count 2.83 M/uL (4.70-6.10); White Blood Count 1.57 K/ul (4.8-10.8)
[2025-07-29 05:00] LABS: Anion Gap 5.0 (3-11); Blood Urea Nitrogen 27.0 mg/dl (6-23); Calcium 8.2 mg/dl (8.6-10.3); Carbon Dioxide 26.0 mmol/L (21-32); Chloride 108.0 mmol/L (98-107); Creatinine Clr Calc Pharmacy 45.9 ml/min; Glucose 169.0 mg/dl (70-99(Fasting)); Magnesium 1.7 mg/dl (1.7-2.4); Potassium 4.7 mmol/L (3.5-5.1); Sodium 139.0 mmol/L (136-145)
[2025-07-29 05:03] LABS: INR 1.8 (0.9-1.1); Prothrombin Time 18.5 Seconds (9.0-12.0)
[2025-07-29 05:08] LABS: Thyroid Stimulating Hormone 1.25 uIu/ml (0.300-4.500)
[2025-07-29] MEDS: LEVOTHYROXINE SODIUM 50 MCG TABLET PO SCH (06:30)
[2025-07-29] MEDS: MAGNESIUM SULFATE / D5W 1 GM/100 ML BAG IV SCH (06:30)
--- NOTE | 2025-07-29 07:21 | Critical Care Progress Note ---
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: (6) Neutropenic fever: (7) Immunocompromised state due to drug therapy: (8) Hypothyroidism: (9) HTN (hypertension): (10) Dyslipidemia: (11) Atrial fibrillation: Plan Patient is a 84-year-old male with past medical history of pulmonary hypertension, PAF, history of PE and DVT on warafarin sick sinus syndrome status post pacemaker placement, DMII, vitamin D deficiency, hypothyroidism, HTN, HLD, anemia, thrombocytopenia, and 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 The patient presented to [facility] ED on 07/28/2025 with complaints of nausea/vomiting and fevers. Patient hypotensive in ED and given 2L crystalloid and broad spectrum ABX. Admit to ICU for concern of sepsis in immunocompromised state/neutropenia. Of note the patient had a recent Mediport placed on 07/04/2025. CT of the chest without contrast 07/28/2025, this shows metastatic lesions bilaterally, bilateral pleural effusions, left greater than right, fluid extending into the major fissure on the left. Atelectasis versus consolidation in bilateral lower lobes. In comparison to May 2025, pleural effusions are similar, however atelectasis is less apparent suggesting pneumonia rather than atelectasis. Procalcitonin is low. MRSA nares is negative. Blood cultures are pending. No sputum has been obtained. BNP is elevated. Most recent echocardiogram showed evidence of pulmonary hypertension, diastolic dysfunction (grade 1) and a preserved ejection fraction. Reason critically ill: Shock state, likely septic secondary to pneumonia (resolved) Pancytopenia with mild neutropenia Immunocompromise state on chemo and immunotherapy Pneumonia Bilateral pleural effusions Pulmonary hypertension Neuro: -No acute issue -Neuro intact. No focal deficits. -Monitor and image as appropriate. CV: Shock state, likely septic, has resolved. -BP in ED downtrended to 80s w/ MAP < 65. -Give 2L crystalloid w/ improvement in hemodynamics. -Required low-dose Levophed that has been turned off early this morning. Pulm: Pulmonary hypertension Group 2 v.Group 4 Hypoxia, resolved, on room air Community-acquired pneumonia Bilateral pleural effusions (chronic) -Maintain SpO2 > 90%, currently on room air. Saturation 94%. -On tadalafil and torsemide at home. Currently held due to hypotension. Consider restarting tomorrow. -Has some wheezing today, no history of asthma or COPD, will start some nebulizers. -Patient has multiple drug allergies to cephalosporins and penicillins. Was started on Levaquin and vancomycin. Would recommend 1 week of therapy. GI: Nausea/vomiting -Resolved -Cont zofran -Advance diet as tolerated. 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 -Daily CBC Endo: Diabetes mellitus Type II; Stress hyperglycemia -BG 170 -Hyperglycemia protocol -Maintain BG < 180 ID: Leukopenia; Neutropenia; concern for sepsis; neutropenic fever Pneumonia on CT imaging, infiltrates in bilateral lower lobes -WBC 1.71 -Neutrophil count 1.19. Mild Neutropenia. -Afebrile while inpatient. notes 102 degree fever at home. -UA negative -Procal 0.18 -RVP negative -Blood cultures pending -Cont empiric ABX with vancomycin and Levaquin at this time. Can discontinue vancomycin if blood cultures did not grow. Would recommend 1 week of therapy for pneumonia. Prophylaxis: -GI prophylaxis not indicated. -SCD for mechanical DVT prophylaxis -Cont Coumadin. Plan: Patient is clinically improved. He is off of norepinephrine. On room air. He may be transferred out of the ICU. Can be transferred to a [facility] bed. Will initiate some bronchodilators today as he is wheezing, does not have a COPD or asthma, likely just secondary to his acute pneumonia. He needs 1 week of therapy for his pneumonia. Please follow his cultures. Has been weaned off of oxygen at rest, please ambulate the patient prior to discharge and ensure that he is qualified for home oxygen. I have personally spent 50 minutes of critical care time in the direct management of this patient. This is a life/limb threatening event. This includes time spent evaluating patient, direct bedside care, chart review, placing orders, interpretation of diagnostic studies, discussion with consultants, patient, and family members, as well as other required patient management activities. This time is exclusive of all separately billable procedures, and teaching time and separate from and in addition to any other critical care service time. Please note the above document was generated using voice recognition software. It may contain grammatical, syntax or spelling errors. Admission and Anticipated Discharge Date Admission Date: July 28, 2025 Subjective Past 24-hour events: Admitted to the ICU yesterday evening. Hypotensive requiring norepinephrine. Remained low-dose however. Only mildly hypoxic, on 2 L. Was febrile however no fevers since yesterday afternoon. Rounding: Patient was on low-dose Levophed this morning. MAP was in the 80s. Levophed was turned off during rounds. Systolic has remained around 120, MAP is not dropping below 65. Patient is also off of oxygen, on room air satting in the mid 90s. Overall he says he is feeling better. He denies any cough or phlegm production recently. He denies any sick contacts recently. On exam he has some wheezing most notably on the right. Diminished at bilateral bases. Lower extremities have some swelling. He says this is normal for him. Intake: 4321 mL Output: 425 mL Net: +3896 mL Mechanical ventilation: On room air Feeding: Regular diet IV infusions: None Indwelling catheters: Mediport, peripheral IVs Laboratory: CBC: WBC 1.57 (1.19 neutrophils), hemoglobin 10, platelets 123 Chemistry: Sodium 139, potassium 4.7, chloride 108, bicarb 26, BUN 27, creatinine 1.30, glucose 169, lactate 1.4, magnesium 1.7, phosphorus 3.0, AST and ALT are normal, alk phos 298, BNP elevated at 568, procalcitonin 0.18, TSH 1.25, random cortisol 30.66 ABG: None Review of Systems Review of Systems: Negative except as in HPI Physical Exam Physical Exam: Physical examination: General: Appears stated age, well-kept, not in distress. HEENT: Normocephalic, atraumatic. Extraocular movements intact. Sclera are nonicteric. No JVD appreciated. Skin: Warm and dry. No rashes appreciated. No jaundice appreciated. Venous stasis changes appreciated in bilateral lower extremities. Cardiovascular: Heart is a regular rate and rhythm, no murmurs appreciated on my exam. Edema noted in both calves. Lungs: Wheezing appreciated on the right. Diminished in bilateral bases. Nontachypneic. On room air satting 94%. Abdomen: Nondistended, nontender to palpation. Musculoskeletal: Normal muscle mass and tone. No gross joint deformity abnormalities. No effusions appreciated. Neurologic: Awake and alert, oriented. CN II through XII are grossly intact. Speech is fluent. Nonfocal exam. Psychiatric: Appropriate cooperative during my exam. Results & Data Results & Data Vital Signs (Past 12 Hours) Vital Signs Temp Pulse Pulse Resp BP BP Pulse Ox 07/29/25 06:00 106/64 07/29/25 06:00 106/64 07/29/25 06:00 106/64 07/29/25 06:00 106/64 07/29/25 06:00 68 16 97 07/29/25 05:30 113/64 07/29/25 05:30 113/64 07/29/25 05:30 113/64 07/29/25 05:30 113/64 07/29/25 05:30 73 18 96 07/29/25 05:00 98/58 L 07/29/25 05:00 98/58 L 07/29/25 05:00 98/58 L 07/29/25 05:00 98/58 L 07/29/25 05:00 98/58 L 07/29/25 05:00 76 17 90 07/29/25 04:30 76 19 99 07/29/25 04:30 128/82 07/29/25 04:30 128/82 07/29/25 04:30 128/82 07/29/25 04:30 128/82 07/29/25 04:30 128/82 07/29/25 04:00 74 17 99 07/29/25 04:00 109/60 07/29/25 04:00 109/60 07/29/25 04:00 109/60 07/29/25 04:00 109/60 07/29/25 04:00 109/60 07/29/25 03:30 108/56 L 07/29/25 03:30 108/56 L 07/29/25 03:30 108/56 L 07/29/25 03:30 108/56 L 07/29/25 03:30 71 18 99 07/29/25 03:15 98/54 L 07/29/25 03:15 98/54 L 07/29/25 03:15 98/54 L 07/29/25 03:15 98/54 L 07/29/25 03:15 98/54 L 07/29/25 03:15 71 22 100 07/29/25 03:00 71 17 99 07/29/25 03:00 104/57 L 07/29/25 03:00 104/57 L 07/29/25 03:00 104/57 L 07/29/25 03:00 104/57 L 07/29/25 03:00 104/57 L 07/29/25 02:45 110/55 L 07/29/25 02:45 110/55 L 07/29/25 02:45 110/55 L 07/29/25 02:45 69 18 100 07/29/25 02:30 91/59 L 07/29/25 02:30 66 17 99 07/29/25 02:15 78/55 L 07/29/25 02:15 67 19 99 07/29/25 02:00 71 3 L 99 07/29/25 02:00 89/54 L 07/29/25 01:45 103/63 07/29/25 01:45 88 19 100 07/29/25 01:38 98/57 L 07/29/25 01:36 70 14 99 07/29/25 01:31 86/51 L 07/29/25 01:30 70 18 100 07/29/25 01:00 95/49 L 07/29/25 01:00 72 15 100 07/29/25 00:02 97/45 L 07/29/25 00:00 80 07/29/25 00:00 66 17 99 07/28/25 23:00 83 17 100 07/28/25 23:00 110/60 07/28/25 22:01 120/80 07/28/25 22:00 79 22 83 L 07/28/25 21:13 109/63 07/28/25 21:12 81 17 07/28/25 21:00 83 16 93 07/28/25 20:45 07/28/25 20:42 73 14 88 L 07/28/25 20:42 36.9 C 78 18 113/77 91 07/28/25 19:59 37.0 C 72 16 110/63 98 O2 Del Method O2 Flow Rate 07/29/25 06:00 07/29/25 06:00 07/29/25 06:00 07/29/25 06:00 07/29/25 06:00 07/29/25 05:30 07/29/25 05:30 07/29/25 05:30 07/29/25 05:30 07/29/25 05:30 07/29/25 05:00 07/29/25 05:00 07/29/25 05:00 07/29/25 05:00 07/29/25 05:00 07/29/25 05:00 07/29/25 04:30 07/29/25 04:30 07/29/25 04:30 07/29/25 04:30 07/29/25 04:30 07/29/25 04:30 07/29/25 04:00 07/29/25 04:00 07/29/25 04:00 07/29/25 04:00 07/29/25 04:00 07/29/25 04:00 07/29/25 03:30 07/29/25 03:30 07/29/25 03:30 07/29/25 03:30 07/29/25 03:30 07/29/25 03:15 07/29/25 03:15 07/29/25 03:15 07/29/25 03:15 07/29/25 03:15 07/29/25 03:15 07/29/25 03:00 07/29/25 03:00 07/29/25 03:00 07/29/25 03:00 07/29/25 03:00 07/29/25 03:00 07/29/25 02:45 07/29/25 02:45 07/29/25 02:45 07/29/25 02:45 07/29/25 02:30 07/29/25 02:30 07/29/25 02:15 07/29/25 02:15 07/29/25 02:00 07/29/25 02:00 07/29/25 01:45 07/29/25 01:45 07/29/25 01:38 07/29/25 01:36 07/29/25 01:31 07/29/25 01:30 07/29/25 01:00 07/29/25 01:00 07/29/25 00:02 07/29/25 00:00 07/29/25 00:00 07/28/25 23:00 07/28/25 23:00 07/28/25 22:01 07/28/25 22:00 07/28/25 21:13 07/28/25 21:12 07/28/25 21:00 07/28/25 20:45 Nasal Cannula 2 07/28/25 20:42 07/28/25 20:42 Nasal Cannula 07/28/25 19:59 Room Air Coding Level of Care Code 81857 SUB INP/OBS CARE 3/50MIN Diagnoses Pulmonary hypertension I27.20 Warfarin anticoagulation Z79.01 Paroxysmal atrial fibrillation I48.0 Diabetes mellitus type 2, controlled, with complications E11.8 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
[2025-07-29 07:57] LABS: Hemoglobin A1C 7.9 % (4.5-5.6)
[2025-07-29] MEDS: ALBUT/IPRATROP 3MG/0.5MG NEB 3 ML VIAL NEB SCH (10:26)
[2025-07-29] MEDS: VANCOMYCIN HCL 1,250 MG in SODIUM CHLORIDE 0.9% 250 ML IV SCH (11:21)
--- NOTE | 2025-07-29 11:24 | Pharmacy Report ---
Pharmacy PK ABX Note - Date of Service July 29, 2025 - Assessment and Plan Assessment 84 year old M receiving vancomycin and levofloxacin for treatment of pneumonia. MRSA nasal (-) however given immunocompromised status and recent port placement, plan to continue vancomycin empirically until blood cultures result. Blood cultures pending. Renal function stable. Day # 2 of antimicrobial therapy. Plan Vancomycin * Loading dose: 1500 mg IV x 1 * Maintenance dose: 1250 mg IV every 24 hours * Regimen is predicted to achieve target AUC/JAVI of 400-600 mg/L.hr * Will obtain a level if therapy continued beyond 48h. Pharmacy will continue to follow and will adjust dose/frequency as necessary. Thank you. Pharmacy has transitioned to AUC monitoring for vancomycin. AUC/JAVI is the preferred PK/PD target and is associated with decreased risk of nephrotoxicity compared to traditional trough targets.
[2025-07-29] MEDS: MAGNESIUM CHLORIDE W/CALCIUM 64MG DELAYED REL TAB PO SCH (11:35)
--- NOTE | 2025-07-29 11:40 | Electrocardiogram Report ---
Test Reason : Blood Pressure : */* mmHG Vent. Rate : 85 BPM Atrial Rate : 366 BPM P-R Int : * ms QRS Dur : 150 ms QT Int : 392 ms P-R-T Axes : * -49 164 degrees QTcB Int : 466 ms Atrial flutter with variable A-V block with frequent ventricular-paced complexes and with premature v entricular or aberrantly conducted complexes Right bundle branch block Left anterior fascicular block Bifascicular block T wave abnormality, consider inferolateral ischemia Abnormal ECG When compared with ECG of 07/10/2017, there is no significant change Confirmed by Didi Vuong ([id number]) on 07/29/2025 11:40:22 AM Referred By: REFERRED SELF Confirmed By: Didi Vuong
--- NOTE | 2025-07-29 13:37 | Cardiology Consultation ---
Date of Consultation July 29, 2025 Assessment & Plan (1) Immunocompromised state due to drug therapy: (2) Fever: (3) Anemia: (4) Neutropenic fever: (5) Primary cancer of esophagus with metastasis to other site: (6) Persistent atrial fibrillation: (7) Hypoalbuminemia: (8) Diastolic congestive heart failure: (9) Fluid retention: Plan Very pleasant 84 year old male with metastatic esophageal cancer status post initiation of chemotherapy and immunotherapy on 07/08 and 07/09 who awoke in the morning of 07/28/2025 with nausea then vomiting, chills and observed fever (102 degrees Fahrenheit) prompting ER evaluation. Patient hypotensive in the ER, receiving 2 L fluid resuscitation and broad-spectrum antibiotics, subsequently admitted to the ICU due to concern regarding septic shock in immunocompromised patient. Diuretic therapy held. I/O's documented to be positive 4 L overall since admission. Cardiology consultation requested by hospitalist due to concern for congestive heart failure. Examination with mild volume overload appearing to be multifactorial in etiology (withholding diuretics, volume resuscitation, cancer/chemotherapy/immunotherapy, hypoalbuminemia, anemia, terazosin, etc). Patient seemingly asymptomatic in regards to acute decompensation. Recommend resumption of oral torsemide at 10 mg/day. Patient notably adverse to thoracentesis consideration. Continue metoprolol succinate and chronic anticoagulation as tolerated. Supervising Physician Co-Signing Physician Notes I have personally performed a history and physical examination on the patient. I have reviewed the advance practitioner's documentation, and I agree with, and take responsibility for the plan of care. 84-year-old male with metastatic esophageal cancer presenting to the emergency department with fever. 4 liter positive fluid balance since admission. Diuretic therapy on hold. Compliant with outpatient torsemide, 10 mg every other day. Recommend restart oral torsemide 10 mg daily. Continue metoprolol succinate and chronic anticoagulation. Monitor fluid balance, daily weight, GFR, and electrolytes. 1.5 g sodium restriction. Randall Solano DO, [facility] History of Present Illness Reason for Consultation: CHF Requesting Physician: [facility], Dr. Kimo Xie MD Attending Physician: [facility] Hospitalist Service, Dr. Kimo Xie MD History of Present Illness Mr. 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 Javi Yanes on July 04, 2025 and initiation of chemotherapy on July 08 and - carboplatin/paclitaxel, immunotherapy with zolbetuximab. Patient also with a history of neuroendocrine tumor/carcinoid in distal ileum treated with suppressive therapy with injectable octreotide. On July 28, 2025 patient awoke with throat/upper chest congestion. He had nausea, vomiting bile then with chills, and fevers up to 102 F. Patient subsequently presented to the ER where is found to be hypotensive, receiving 2 L of fluid resuscitation and broad- spectrum antibiotics. Thereafter he was admitted to the ICU due to concern for septic shock in an immunocompromised patient, pneumonia. Cardiology consultation requested by [facility] Hospitalist service on July 29, 2025 due to concern for congestive heart failure. Chest x-ray on presentation revealed no significant interval change, right greater than left basilar airspace opacities and small right pleural effusion similar to prior chest x-ray from July 04, 2025. CT imaging of the chest revealed moderate right sided and mild left-sided pleural effusions, few peripherally arranged nodular opacities in both lobes of the lung with some of these showing ground glass opacification. At present, patient is feeling relatively well. Patient has a chronic cough, postnasal sinus congestion. No chest pain. No overt palpitations. Shortness of breath is at baseline. Patient denies orthopnea or PND. Patient describes chronic lower extremity peripheral edema and may be slightly worse today compared to baseline. Outpatient diuretic regimen is oral torsemide 3 to 4 days/week. No current fevers or chills. notes chemo treatment was to occur today but was on hold due to thrombocytopenia. No melena or hematochezia. Cardiac history includes past paroxysmal and now persistent atrial fibrillation/flutter, Tachy-Bradycardia Syndrome status post dual-chamber Medtronic pacemaker implantation that was inserted in March 2017. Patient with history of past DVT and pulmonary embolism, chronically elevated pulmonary pressures, chronic kidney disease, hypertension, dyslipidemia, BPH, gout, hypothyroidism Family History: Noncontributory. Father with ? liver cancer, alcoholic cirrhosis. Mother at 82, heart failure Social History: Reformed smoker. Retired schoolteacher. to [place]. 2 children. Allergies Allergy/AdvReac Type Severity Reaction Status Date / Time ceftriaxone Allergy Intermediate ITCHY RASH Verified 07/28/25 17:02 clindamycin Allergy Unknown UNKNOWN Verified 07/28/25 17:02 Penicillins Allergy Unknown "happened Verified 07/28/25 17:02 as a child, not sure of reaction" peroxide Allergy Severe severe rash Uncoded 07/28/25 17:02 Home Medications Medication Instructions Recorded Confirmed Type octreotide,microspheres 30 mg 30 mg IM MONTHLY 12/19/24 07/28/25 History intramuscular susp, extended release terazosin 2 mg capsule 2 mg PO HS 12/19/24 07/28/25 History metformin 500 mg tablet,extended 500 mg PO BID 01/01/25 07/28/25 History release 24 hr atorvastatin 40 mg tablet (Lipitor) 40 mg PO HS 06/26/25 07/28/25 History calcium 600 mg (as carbonate)-vit 1 tab PO DAILY 06/26/25 07/28/25 History D3 20 mcg (800 unit) chewable tablet (Caltrate plus D) levothyroxine 50 mcg capsule 50 mcg PO DAILYBB 06/26/25 07/28/25 History torsemide 10 mg tablet 10 mg PO Q OTHER DAY 06/26/25 07/28/25 History warfarin 5 mg tablet 5 mg PO 6XWK 06/26/25 07/28/25 History cholecalciferol (vitamin D3) 25 25 mcg PO DAILY 07/01/25 07/28/25 History mcg (1,000 unit) tablet (Vitamin D3) allopurinol 100 mg tablet 200 mg PO QAM 07/28/25 07/28/25 History cyanocobalamin (vitamin B-12) 1,000 mcg PO WK 07/28/25 07/28/25 History 1,000 mcg tablet (Vitamin B-12) ferrous sulfate 325 mg (65 mg 325 mg PO DAILY 07/28/25 07/28/25 History iron) tablet ipratropium bromide 21 mcg (0.03 2 spray intranasal QID PRN RHINITIS 07/28/25 07/28/25 History %) nasal spray metoprolol succinate 50 mg 25 mg PO BID 07/28/25 07/28/25 History tablet,extended release 24 hr tadalafil 5 mg tablet 5 mg PO DAILY 07/28/25 07/28/25 History warfarin 5 mg tablet 7.5 mg PO WK 07/28/25 07/28/25 History Patient History Medical History Bifascicular block History of colon polyps 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 Hx of Clostridium difficile infection 2017 History of rectal abscess "1984, perirectal abscess I&D, fissure" Dyslipidemia HTN (hypertension) Hypothyroidism 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 11/2024 Hx pulmonary embolism 2007 History of COVID-19 (2023) mild, resolved On home O2 2 lpm HS Nocturnal hypoxia Atrial fibrillation follows w/ Dr Byrd History of anemia Diabetes History of chemotherapy ended in 01/2025 DVT (deep venous thrombosis) 03/2008 Hx of pilonidal cyst Esophageal mass Lung nodule Neuroendocrine cancer diagnosed July 2017; tx with octreotide every month Surgical History Port-A-Cath in place (07/04/25) Insertion MRI Compatible Access Port into Right Internal Jugular Vein(Right) - Javi Yanes MD, FACS History of tonsillectomy and adenoidectomy Hx of colonoscopy Pacemaker 2018- tachy- don syndrome- checked remotely from home H/O hernia repair Family History Father Liver cirrhosis due to alcoholism Cancer possibly liver cancer Mother Polio Brother Diabetes Kidney disease Hypertension Brother Myocardial infarction Son No problems noted. Son No problems noted. Grandmother (Maternal) Stroke Heart disease Social History Smoking Status: Former smoker Tobacco Type: Cigarettes Age Started Using Tobacco: 16; Age Quit Using Tobacco: 42; packs per day: 1.5; Smoking End Date: 1982; Second Hand Exposure: Yes (hx); Do You Dip or Chew Tobacco: No; Hx Alcohol Use: No Hx Substance Use: No Preferred Language: Indonesian Communication Ability: Effective Visual Impairment: Limited Hearing Ability: Hard of Hearing Improvement Manager Required: No Beliefs That Will Affect Care: None marital status: Current Living Situation: Spouse current occupational status: retired How many Children do You have: 2 Feels Safe at Home: Yes Safety Concerns: Feels Safe At This Time Childhood Exposure to Second-Hand Smoke: Yes Diet: diabetic caffeine: Yes (2 cups of coffee/day) during the past year weight has: remained stable Dental Care, Regularly: Yes Physical Activity Frequency: 1-2 Times per Week Seatbelt Use: always Sunscreen Use: Yes Assistive Devices: None Review of Systems Review of Systems: Complete Review of Systems is as stated above, negative, or noncontributory Physical Exam Physical Exam: General: NAD. HENT: Normocephalic. Atraumatic. Eyes: Right medial subconjunctival hemorrhage. PER. Neck: JVD. Heart: Irregularly irregular. No rub. Lungs: Absent breath sounds at the bases bilaterally, right greater than left. No wheeze. Abdomen: +BS. Soft. Nontender. No masses or organomegaly. Extremities: 1+ chronic indurated edema, mild erythema, and stasis changes, without overt cellulitis. Limited neurological examination is without focal deficits. Results & Data Vital Signs (Past 12 Hours) Vital Signs Temp Pulse Pulse Resp BP BP Pulse Ox 07/29/25 13:03 36.5 C 90 20 132/73 95 07/29/25 10:30 104/66 07/29/25 10:30 67 100 07/29/25 10:26 69 16 97 07/29/25 10:00 68 25 H 95 07/29/25 10:00 104/67 07/29/25 09:30 67 20 96 07/29/25 09:30 106/59 L 07/29/25 09:00 102/74 07/29/25 09:00 102/74 07/29/25 09:00 70 23 95 07/29/25 08:57 07/29/25 08:30 118/68 07/29/25 08:30 69 20 94 07/29/25 08:07 120/70 07/29/25 08:06 79 26 H 96 07/29/25 08:01 110/71 07/29/25 08:01 110/71 07/29/25 08:00 81 25 H 93 07/29/25 08:00 74 07/29/25 07:30 86 20 99 07/29/25 07:00 105/61 07/29/25 07:00 71 17 98 07/29/25 06:30 120/71 07/29/25 06:30 78 16 99 07/29/25 06:00 106/64 07/29/25 06:00 106/64 07/29/25 06:00 106/64 07/29/25 06:00 106/64 07/29/25 06:00 106/64 07/29/25 06:00 68 16 97 07/29/25 05:30 113/64 07/29/25 05:30 113/64 07/29/25 05:30 113/64 07/29/25 05:30 113/64 07/29/25 05:30 73 18 96 07/29/25 05:00 98/58 L 07/29/25 05:00 98/58 L 07/29/25 05:00 98/58 L 07/29/25 05:00 98/58 L 07/29/25 05:00 98/58 L 07/29/25 05:00 76 17 90 07/29/25 04:30 76 19 99 07/29/25 04:30 128/82 07/29/25 04:30 128/82 07/29/25 04:30 128/82 07/29/25 04:30 128/82 07/29/25 04:30 128/82 07/29/25 04:00 74 17 99 07/29/25 04:00 109/60 07/29/25 04:00 109/60 07/29/25 04:00 109/60 07/29/25 04:00 109/60 07/29/25 04:00 109/60 07/29/25 03:30 108/56 L 07/29/25 03:30 108/56 L 07/29/25 03:30 108/56 L 07/29/25 03:30 108/56 L 07/29/25 03:30 71 18 99 07/29/25 03:15 98/54 L 07/29/25 03:15 98/54 L 07/29/25 03:15 98/54 L 07/29/25 03:15 98/54 L 07/29/25 03:15 98/54 L 07/29/25 03:15 71 22 100 07/29/25 03:00 71 17 99 07/29/25 03:00 104/57 L 07/29/25 03:00 104/57 L 07/29/25 03:00 104/57 L 07/29/25 03:00 104/57 L 07/29/25 03:00 104/57 L 07/29/25 02:45 110/55 L 07/29/25 02:45 110/55 L 07/29/25 02:45 110/55 L 07/29/25 02:45 69 18 100 07/29/25 02:30 91/59 L 07/29/25 02:30 66 17 99 07/29/25 02:15 78/55 L 07/29/25 02:15 67 19 99 07/29/25 02:00 71 3 L 99 07/29/25 02:00 89/54 L 07/29/25 01:45 103/63 07/29/25 01:45 88 19 100 07/29/25 01:38 98/57 L 07/29/25 01:36 70 14 99 O2 Del Method O2 Flow Rate 07/29/25 13:03 Room Air 07/29/25 10:30 07/29/25 10:30 Room Air 07/29/25 10:26 Room Air 07/29/25 10:00 Room Air 07/29/25 10:00 07/29/25 09:30 Room Air 07/29/25 09:30 07/29/25 09:00 Room Air 07/29/25 09:00 07/29/25 09:00 Room Air 07/29/25 08:57 Room Air 07/29/25 08:30 07/29/25 08:30 07/29/25 08:07 07/29/25 08:06 07/29/25 08:01 07/29/25 08:01 07/29/25 08:00 Room Air 07/29/25 08:00 07/29/25 07:30 Room Air 07/29/25 07:00 07/29/25 07:00 07/29/25 06:30 07/29/25 06:30 Nasal Cannula 2 07/29/25 06:00 07/29/25 06:00 07/29/25 06:00 07/29/25 06:00 07/29/25 06:00 07/29/25 06:00 07/29/25 05:30 07/29/25 05:30 07/29/25 05:30 07/29/25 05:30 07/29/25 05:30 07/29/25 05:00 07/29/25 05:00 07/29/25 05:00 07/29/25 05:00 07/29/25 05:00 07/29/25 05:00 07/29/25 04:30 07/29/25 04:30 07/29/25 04:30 07/29/25 04:30 07/29/25 04:30 07/29/25 04:30 07/29/25 04:00 07/29/25 04:00 07/29/25 04:00 07/29/25 04:00 07/29/25 04:00 07/29/25 04:00 07/29/25 03:30 07/29/25 03:30 07/29/25 03:30 07/29/25 03:30 07/29/25 03:30 07/29/25 03:15 07/29/25 03:15 07/29/25 03:15 07/29/25 03:15 07/29/25 03:15 07/29/25 03:15 07/29/25 03:00 07/29/25 03:00 07/29/25 03:00 07/29/25 03:00 07/29/25 03:00 07/29/25 03:00 07/29/25 02:45 07/29/25 02:45 07/29/25 02:45 07/29/25 02:45 07/29/25 02:30 07/29/25 02:30 07/29/25 02:15 07/29/25 02:15 07/29/25 02:00 07/29/25 02:00 07/29/25 01:45 07/29/25 01:45 07/29/25 01:38 07/29/25 01:36 Laboratory Results Cardiac Enzymes 07/28/25 07/29/25 Range/Units 14:25 04:04 AST 31 (13-39) U/L B-Natriuretic Peptide 568 H (0-100) pg/ml Coagulation 07/28/25 07/29/25 Range/Units 14:25 04:04 PT 19.2 H 18.5 H (9.0-12.0) Seconds B-Natriuretic Peptide 568 H (0-100) pg/ml CBC 07/28/25 07/29/25 Range/Units 14:25 04:04 WBC 1.71 L 1.57 L (4.8-10.8) K/ul RBC 3.20 L 2.83 L (4.70-6.10) M/uL Hgb 11.5 L 10.0 L (14.0-18.0) g/dL Hct 34.2 L 31.0 L (42.0-52.0) % Plt Count 137 123 L (130-400) K/uL Neut # (Auto) 1.19 L (1.40-6.50) K/uL Lymph # (Auto) 0.09 L (1.20-3.40) K/uL [place] # (Auto) 0.37 (0.11-0.59) K/uL Eos # (Auto) 0.03 (0.00-0.50) K/uL Baso # (Auto) 0.02 (0.00-0.20) K/uL Comprehensive Metabolic Panel 07/28/25 07/29/25 Range/Units 14: 04:04 Sodium 138 139 (136-145) mmol/L Potassium 4.8 4.7 (3.5-5.1) mmol/L Chloride 103 108 H (98-107) mmol/L Carbon Dioxide 27 26 (21-32) mmol/L BUN 31 H 27 H (6-23) mg/dl Creatinine 1.35 1.30 (0.6-1.4) mg/dl Glucose 170 H 169 H (70-99(Fasting)) mg/dl Calcium 9.1 8.2 L (8.6-10.3) mg/dl AST 31 (13-39) U/L ALT 27 (7-52) U/L Alkaline Phosphatase 298 H (34-104) U/L Total Protein 6.3 (6.0-8.3) gm/dl Albumin 3.5 (3.4-5.0) gm/dl Intake and Output 07/28/25 07/29/25 07/29/25 22:59 06:59 14:59 Intake Total 2100 / 4321.543 2221.543 / 4321.543 608.457 / 608.457 Output Total 125 / 425 300 / 425 300 / 300 Balance 1975 / 3896.543 1921.543 / 3896.543 308.457 / 308.457 Intake: IV 2000 / 4021.543 2021.543 / 4021.543 608.457 / 608.457 Albumin 5% 250 ml @ 500 mls/hr 250 / 250 IV ONE ONE Rx#:[id number] Magnesium Sulfate / D5w 1 gm In 175 / 175 100 ml @ 50 mls/hr IV Q2H [facility] Rx#:[id number] Norepinephrine/D5w 4 mg In 250 91.543 / 91.543 158.457 / 158.457 ml @ 0.01 MCG/KG/MIN 2.906 mls/ hr IV .Q24H [facility] Rx#:[id number] Sodium Chloride 0.9% 1,000 ml @ 2000 / 3000 1000 / 3000 999 mls/hr IV .Q1H1M [facility] Rx#: [id number] Vancomycin HCl 1,250 mg In 275 / 275 Sodium Chloride 0.9% 250 ml @ 200 mls/hr IV Q24H [facility] Rx#: [id number] Vancomycin HCl 1,500 mg In 530 / 530 Sodium Chloride 0.9% 500 ml @ 200 mls/hr IV NOW ONE Rx#: [id number] levoFLOXacin/D5W 750 mg In 150 150 / 150 ml @ 100 mls/hr IV Q48H [facility] Rx# :[id number] Oral 100 / 300 200 / 300 Output: Urine 125 / 425 300 / 425 300 / 300 Other: Weight 77.5 kg 77.4 kg 77.4 kg Weight Measurement Method Built in [facility] Built in [facility] Patient Weight 07/30/25 06:59 Weight 77.4 kg Diagnostic Findings May 24, 2025 TTE Interpretation Summary (as per Dr. Byrd): The left ventricular cavity size is normal. The LV wall thickness is mildly increased (concentric). The septal motion is abnormal consistent with right ventricular pacemaker. The regional left ventricular wall motion is otherwise normal. The qualitative LV ejection fraction is 55-59% (normal). The left atrium is moderately enlarged (42-48 ml/m^2). The right atrium is mildly enlarged. Moderate aortic valve sclerosis is present. Trace aortic regurgitation. Mild mitral regurgitation is present. Moderate tricuspid regurgitation is present. The estimated pulmonary artery systolic pressure is 40 to 45mm Hg. (reduced from last study of November 09, 2024) A trivial circumferential pericardial effusion is noted. Cardiac tamponade is absent. July 28, 2025 pacemaker interrogation demonstrated appropriate function, 11 years remaining to recommended replacement time. Persistent atrial fibrillation/flutter noted since December 2024, rate controlled. Rhythm ventricular paced 35.5% of the time since July 04, 2025. EKG on presentation revealed atrial flutter with a ventricular rate of 85 bpm with frequent ventricular paced complexes, premature ventricular complexes versus aberrantly conducted complexes, underlying bifascicular block, diffuse T wave abnormality. 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
--- NOTE | 2025-07-29 15:25 | Hospitalist Progress Note ---
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 Patient is critically ill requires hospital level care and intervention possibly specialty consultation. Septic shock Neutropenic fever Immunocompromise state Pneumonia --CXR: No significant interval change. Right greater than left basilar airspace opacities and small pleural effusions are similar to the prior study. Cardio megaly. Enlarged central pulmonary arteries, which can be seen with pulmonary arterial hypertension. --Nasal MRSA Negative --Biofire Negative --Blood Cultures: Negative to date -Normal cortisol level Pressors discontinued Appreciate property clerk help Empirically on vancomycin, Levaquin Received IV fluids Monitor volume status closely Monitor CBC closely A-fib RVR -Normal TSH Home metoprolol succinate resumed Continue Coumadin for anticoagulation Monitor INR Adjust Coumadin as needed Monitor and replete Eliquis as needed Acute on chronic diastolic heart failure Pulmonary hypertension CT showed bilateral pleural effusion Elevated BNP No aggressive diuretics given septic shock Monitor I's and O's, daily weight Resume torsemide tomorrow Cardiology consulted Chemotherapy-induced pancytopenia Monitor CBC No bleeding issues currently 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 Also immunotherapy Oncology consulted DM II HbA1c 7.9 Hold metformin Continue insulin while hospitalized Monitor blood glucose levels Hypothyroidism Continue levothyroxine Other chronic conditions Gout Hyperlipidemia Continue home medications DVT Px: Warfarin CODE STATUS Full code Disposition PT OT prior to discharge Admission and Anticipated Discharge Date Admission Date: July 28, 2025 Subjective Patient is seen and examined at bedside Chest feeling a lot better today Chest congestion, nausea improved Family at bedside Denies any chest pain, dyspnea, dizziness Off pressors this morning Plan to be transferred out of ICU Review of Systems Review of Systems: All systems reviewed & are unremarkable except as noted in Subjective Physical Exam Physical Exam: Physical Exam: Vitals signs as noted above General Appearance:Moderately built and nourished, no apparent distress Head: normocephalic, Atraumatic Eyes: normal inspection, EOMI Neck: supple, Trachea midline Respiratory/Chest: Decreased breath sounds at bases, No accessory muscle use Cardiovascular: Irregularly irregular, No murmur Abdomen/GI:Soft, Non tender, Bowel sounds present Extremities/Musculoskeletal:normal inspection, 1-2+ B/L LE edema Neurologic/Psych:AAOX3, grossly no focal neurological deficits Skin: normal color, warm Results & Data Results & Data Vital Signs (Past 12 Hours) Vital Signs Temp Pulse Pulse Resp BP BP Pulse Ox 07/29/25 15:08 86 20 92 07/29/25 13:03 36.5 C 90 20 132/73 95 07/29/25 10:30 104/66 07/29/25 10:30 67 100 07/29/25 10:26 69 16 97 07/29/25 10:00 68 25 H 95 07/29/25 10:00 104/67 07/29/25 09:30 67 20 96 07/29/25 09:30 106/59 L 07/29/25 09:00 102/74 07/29/25 09:00 102/74 07/29/25 09:00 70 23 95 07/29/25 08:57 07/29/25 08:30 118/68 07/29/25 08:30 69 20 94 07/29/25 08:07 120/70 07/29/25 08:06 79 26 H 96 07/29/25 08:01 110/71 07/29/25 08:01 110/71 07/29/25 08:00 81 25 H 93 07/29/25 08:00 74 07/29/25 07:30 86 20 99 07/29/25 07:00 105/61 07/29/25 07:00 71 17 98 07/29/25 06:30 120/71 07/29/25 06:30 78 16 99 07/29/25 06:00 10664 07/29/25 06:00 106/64 07/29/25 06:00 106/07/29/25 06:00 10607/29/25 06:00 106/64 07/29/25 06:00 68 16 97 07/29/25 05:30 113/64 07/29/25 05:30 113/64 07/29/25 05:30 113/64 07/29/25 05:30 113/64 07/29/25 05:30 73 18 96 07/29/25 05:00 98/58 L 07/29/25 05:00 98/58 L 07/29/25 05:00 98/58 L 07/29/25 05:00 98/58 L 07/29/25 05:00 98/58 L 07/29/25 05:00 76 17 90 07/29/25 04:30 76 19 99 07/29/25 04:30 128/82 07/29/25 04:30 128/82 07/29/25 04:30 128/82 07/29/25 04:30 128/82 07/29/25 04:30 128/82 07/29/25 04:00 74 17 99 07/29/25 04:00 109/60 07/29/25 04:00 109/60 07/29/25 04:00 109/60 07/29/25 04:00 109/60 07/29/25 04:00 109/60 07/29/25 03:30 108/56 L 07/29/25 03:30 108/56 L 07/29/25 03:30 108/56 L 07/29/25 03:30 108/56 L 07/29/25 03:30 71 18 99 O2 Del Method O2 Flow Rate 07/29/25 15:08 Room Air 07/29/25 13:03 Room Air 07/29/25 10:30 07/29/25 10:30 Room Air 07/29/25 10:26 Room Air 07/29/25 10:00 Room Air 07/29/25 10:00 07/29/25 09:30 Room Air 07/29/25 09:30 07/29/25 09:00 Room Air 07/29/25 09:00 07/29/25 09:00 Room Air 07/29/25 08:57 Room Air 07/29/25 08:30 07/29/25 08:30 07/29/25 08:07 07/29/25 08:06 07/29/25 08:01 07/29/25 08:01 07/29/25 08:00 Room Air 07/29/25 08:00 07/29/25 07:30 Room Air 07/29/25 07:00 07/29/25 07:00 07/29/25 06:30 07/29/25 06:30 Nasal Cannula 2 07/29/25 06:00 07/29/25 06:00 07/29/25 06:00 07/29/25 06:00 07/29/25 06:00 07/29/25 06:00 07/29/25 05:30 07/29/25 05:30 07/29/25 05:30 07/29/25 05:30 07/29/25 05:30 07/29/25 05:00 07/29/25 05:00 07/29/25 05:00 07/29/25 05:00 07/29/25 05:00 07/29/25 05:00 07/29/25 04:30 07/29/25 04:30 07/29/25 04:30 07/29/25 04:30 07/29/25 04:30 07/29/25 04:30 07/29/25 04:00 07/29/25 04:00 07/29/25 04:00 07/29/25 04:00 07/29/25 04:00 07/29/25 04:00 07/29/25 03:30 07/29/25 03:30 07/29/25 03:30 07/29/25 03:30 07/29/25 03:30 Laboratory Results Short CBC 07/29/25 Range/Units 04:04 WBC 1.57 L (4.8-10.8) K/ul Hgb 10.0 L (14.0-18.0) g/dL Hct 31.0 L (42.0-52.0) % Plt Count 123 L (130-400) K/uL BMP 07/29/25 04:04 Sodium 139 Potassium 4.7 Chloride 108 H Carbon Dioxide 26 BUN 27 H Creatinine 1.30 Glucose 169 H Calcium 8.2 L Urine 07/28/25 Range/Units 14:59 Urine Color Yellow Urine Appearance Clear (Clear) Urine pH 5.0 (4.5-7.5) Ur Specific [place] 1.017 (1.000-1.030) Urine Protein Trace H (Negative) Urine Glucose (UA) Negative (Negative)
[2025-07-29] MEDS ORDERED: WARFARIN SOD 5 MG TAB PO SCH (16:00)
[2025-07-29] MEDS: WARFARIN SOD 6 MG TAB PO SCH (17:13)
[2025-07-29] MEDS: METOPROLOL SUCC 25MG EXT REL TAB PO SCH (20:33)
[2025-07-30 06:34] LABS: Hematocrit (blood only) 28.0 % (42.0-52.0); Hemoglobin 9.3 g/dL (14.0-18.0); Mean Corpuscular Hemoglobin 35.9 pg (25.0-34.0); Mean Corpuscular Volume 108.1 fL (80.0-100.0); Platelet Count 130 K/uL (130-400); RDW Standard Deviation 70.4 fL (36.4-46.3); Red Blood Count 2.59 M/uL (4.70-6.10); White Blood Count 2.12 K/ul (4.8-10.8)
[2025-07-30 06:48] LABS: Anion Gap 6.0 (3-11); Blood Urea Nitrogen 30.0 mg/dl (6-23); Calcium 8.2 mg/dl (8.6-10.3); Carbon Dioxide 25.0 mmol/L (21-32); Chloride 107.0 mmol/L (98-107); Creatinine Clr Calc Pharmacy 51.8 ml/min; Glucose 140.0 mg/dl (70-99(Fasting)); Magnesium 2.0 mg/dl (1.7-2.4); Potassium 4.6 mmol/L (3.5-5.1); Sodium 138.0 mmol/L (136-145)
[2025-07-30 07:04] LABS: INR 2.0 (0.9-1.1); Prothrombin Time 20.2 Seconds (9.0-12.0)
[2025-07-30 07:27] LABS: Immature Granulocytes # (auto) 0.03 K/uL (0.01-0.20); Immature Granulocytes % (auto) 1.4 %; Macrocytosis Present; Ovalocytes 1+; Polychromasia 2+
[2025-07-30] MEDS: FERROUS SULFATE 325 MG TAB PO SCH (08:30)
[2025-07-30] MEDS: TORSEMIDE 10 MG TAB PO SCH (08:30)
[2025-07-30] MEDS: CHOLECALCIFEROL 25 MCG (1000 UNITS) TAB PO SCH (08:31)
[2025-07-30] MEDS ORDERED: ALBUT/IPRATROP 3MG/0.5MG NEB 3 ML VIAL NEB PRN (08:53)
--- NOTE | 2025-07-30 13:39 | Oncology Consultation ---
Date of Consultation July 30, 2025 Assessment & Plan (1) Primary cancer of lower third of esophagus: (2) Diastolic congestive heart failure: (3) Septic shock: Plan -ANC today down to 860, will give a dose of G-CSF today. -Outpatient follow-up with me in about 1 week to resume chemotherapy. Plan for dose reductions and will also incorporate G-CSF and treatment regimen. History of Present Illness Reason for Consultation: Neutropenic fever Attending Physician: Kimo Xie MD History of Present Illness 84-year-old gentleman with stage IV esophageal cancer status post 1 cycle of treatment with FOLFOX plus zolbetuximab. He was scheduled for cycle 2 of treatment on 07/22/2025 which had to be delayed due to thrombocytopenia. Admitted to [facility] with fever, labs revealed mild neutropenia with concerns for decompensated heart failure. He was placed on broad-spectrum antibiotics. Doing better overall. Allergies Allergy/AdvReac Type Severity Reaction Status Date / Time ceftriaxone Allergy Intermediate ITCHY RASH Verified 07/28/25 17:02 clindamycin Allergy Unknown UNKNOWN Verified 07/28/25 17:02 Penicillins Allergy Unknown "happened Verified 07/28/25 17:02 as a child, not sure of reaction" peroxide Allergy Severe severe rash Uncoded 07/28/25 17:02 Home Medications Medication Instructions Recorded Confirmed Type octreotide,microspheres 30 mg 30 mg IM MONTHLY 12/19/24 07/28/25 History intramuscular susp, extended release terazosin 2 mg capsule 2 mg PO HS 12/19/24 07/28/25 History metformin 500 mg tablet,extended 500 mg PO BID 01/01/25 07/28/25 History release 24 hr atorvastatin 40 mg tablet (Lipitor) 40 mg PO HS 06/26/25 07/28/25 History calcium 600 mg (as carbonate)-vit 1 tab PO DAILY 06/26/25 07/28/25 History D3 20 mcg (800 unit) chewable tablet (Caltrate plus D) levothyroxine 50 mcg capsule 50 mcg PO DAILYBB 06/26/25 07/28/25 History torsemide 10 mg tablet 10 mg PO Q OTHER DAY 06/26/25 07/28/25 History warfarin 5 mg tablet 5 mg PO 6XWK 06/26/25 07/28/25 History cholecalciferol (vitamin D3) 25 25 mcg PO DAILY 07/01/25 07/28/25 History mcg (1,000 unit) tablet (Vitamin D3) allopurinol 100 mg tablet 200 mg PO QAM 07/28/25 07/28/25 History cyanocobalamin (vitamin B-12) 1,000 mcg PO WK 07/28/25 07/28/25 History 1,000 mcg tablet (Vitamin B-12) ferrous sulfate 325 mg (65 mg 325 mg PO DAILY 07/28/25 07/28/25 History iron) tablet ipratropium bromide 21 mcg (0.03 2 spray intranasal QID PRN RHINITIS 07/28/25 07/28/25 History %) nasal spray metoprolol succinate 50 mg 25 mg PO BID 07/28/25 07/28/25 History tablet,extended release 24 hr tadalafil 5 mg tablet 5 mg PO DAILY 07/28/25 07/28/25 History warfarin 5 mg tablet 7.5 mg PO WK 07/28/25 07/28/25 History Patient History Medical History Bifascicular block History of colon polyps 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 Hx of Clostridium difficile infection 2017 History of rectal abscess "1984, perirectal abscess I&D, fissure" Dyslipidemia HTN (hypertension) Hypothyroidism 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 11/2024 Hx pulmonary embolism 2007 History of COVID-19 (2023) mild, resolved On home O2 2 lpm HS Nocturnal hypoxia Atrial fibrillation follows w/ Dr Byrd History of anemia Diabetes History of chemotherapy ended in 01/2025 DVT (deep venous thrombosis) 03/2008 Hx of pilonidal cyst Esophageal mass Lung nodule Neuroendocrine cancer diagnosed July 2017; tx with octreotide every month Surgical History Port-A-Cath in place (07/04/25) Insertion MRI Compatible Access Port into Right Internal Jugular Vein(Right) - Javi Yanes MD, FACS History of tonsillectomy and adenoidectomy Hx of colonoscopy Pacemaker 2018- tachy- don syndrome- checked remotely from home H/O hernia repair Family History Father Liver cirrhosis due to alcoholism Cancer possibly liver cancer Mother Polio Brother Diabetes Kidney disease Hypertension Brother Myocardial infarction Son No problems noted. Son No problems noted. Grandmother (Maternal) Stroke Heart disease Social History Smoking Status: Former smoker Tobacco Type: Cigarettes Age Started Using Tobacco: 16; Age Quit Using Tobacco: 42; packs per day: 1.5; Second Hand Exposure: Yes (hx); Do You Dip or Chew Tobacco: No; Hx Alcohol Use: No Hx Substance Use: No Preferred Language: Icelandic Communication Ability: Effective Visual Impairment: Limited Hearing Ability: Hard of Hearing Ore Roaster Required: No Beliefs That Will Affect Care: None marital status: Current Living Situation: Spouse current occupational status: retired How many Children do You have: 2 Feels Safe at Home: Yes Childhood Exposure to Second-Hand Smoke: Yes Diet: diabetic caffeine: Yes (2 cups of coffee/day) during the past year weight has: remained stable Dental Care, Regularly: Yes Physical Activity Frequency: 1-2 Times per Week Seatbelt Use: always Sunscreen Use: Yes Assistive Devices: None Results & Data Vital Signs (Past 12 Hours) Vital Signs Temp Pulse Pulse Pulse Resp BP Pulse Ox 07/30/25 11:52 37.1 C 82 19 113/74 97 07/30/25 08:24 37.0 C 90 18 115/75 95 07/30/25 07:15 93 H 07/30/25 02:47 37.1 C 88 16 109/58 L 91 O2 Del Method 07/30/25 11:52 Room Air 07/30/25 08:24 Room Air 07/30/25 07:15 07/30/25 02:47 Room Air
--- NOTE | 2025-07-30 14:02 | Cardiology Progress Note ---
Date of Service July 30, 2025 Assessment & Plan (1) Immunocompromised state due to drug therapy: (2) Fever: (3) Anemia: (4) Neutropenic fever: (5) Primary cancer of esophagus with metastasis to other site: (6) Persistent atrial fibrillation: (7) Hypoalbuminemia: (8) Diastolic congestive heart failure: (9) Fluid retention: Plan 84 year old male with metastatic esophageal cancer status post initiation of chemotherapy and immunotherapy on 07/08 and 07/09 who awoke in the morning of 07/28/2025 with nausea then vomiting, chills and observed fever (102 degrees Fahrenheit) prompting ER evaluation. Patient hypotensive, receiving 2 L fluid resuscitation and broad-spectrum antibiotics initially with torsemide held. Cardiology consultation requested by hospitalist due to concern for congestive heart failure. Examination with mild volume overload appearing to be multi factorial in etiology (withholding diuretics, volume resuscitation, I's/O's positive 4.7 L overall as documented, cancer/chemotherapy/immunotherapy, hypoalbuminemia, anemia, terazosin, etc). Patient seemingly asymptomatic in regards to decompensated heart failure. Torsemide resumed this morning without difficulty. Blood pressures acceptable. Patient adverse to thoracentesis consideration. Continue metoprolol succinate and chronic anticoagulation as tolerated. Please contact with any cardiology questions or concerns. Outpatient cardiology follow-up. Admission and Anticipated Discharge Date Admission Date: July 28, 2025 Supervising Physician Co-Signing Physician Notes I have personally performed a history and physical examination on the patient. I have reviewed the advance practitioner's documentation, and I agree with, and take responsibility for the plan of care. 84-year-old male with metastatic esophageal cancer presenting to the emergency department with fever. 4 liter positive fluid balance since admission. Edema/volume status improved with resumption of oral torsemide 10 mg daily. Recommend continuing torsemide 10 mg daily at discharge. Diuretic protocol discussed: Patient may take an additional 10 mg of oral torsemide if weight increases more than 2 pounds in a 48-hour period, or 5 pounds in 1 week. Continue metoprolol succinate and chronic anticoagulation. Monitor fluid balance, daily weight, GFR, and electrolytes. 1.5 g sodium restriction while hospitalized. Cardiology will sign off at this time. Please call with any additional concerns/questions. Randall Solano DO, [facility] Subjective Patient seen and examined. Chart, medications, telemetry reviewed. and friends at bedside. No chest pain or discomfort, palpitations, increased shortness of breath, or worsening edema Review of Systems Review of Systems: Complete Review of Systems is as stated above, negative, or noncontributory Physical Exam Physical Exam: General: NAD. HENT: Normocephalic. Atraumatic. Eyes: Right medial subconjunctival hemorrhage. PER. Neck: No overt JVD. Heart: Irregularly irregular. No rub. Lungs: Absent breath sounds at the bases bilaterally, right greater than left. No wheeze. Abdomen: +BS. Soft. Nontender. No masses or organomegaly. Extremities: 1+ chronic indurated edema, mild erythema, and stasis changes, without overt cellulitis. Limited neurological examination is without focal deficits. Results & Data Vital Signs (Past 12 Hours) Vital Signs Temp Pulse Pulse Pulse Resp BP Pulse Ox 07/30/25 11:52 37.1 C 82 19 113/74 97 07/30/25 08:24 37.0 C 90 18 115/75 95 07/30/25 07:15 93 H 07/30/25 02:47 37.1 C 88 16 109/58 L 91 O2 Del Method 07/30/25 11:52 Room Air 07/30/25 08:24 Room Air 07/30/25 07:15 07/30/25 02:47 Room Air Laboratory Results Coagulation 07/30/25 Range/Units 05:31 PT 20.2 H (9.0-12.0) Seconds CBC 07/30/25 Range/Units 05:31 WBC 2.12 L (4.8-10.8) K/ul RBC 2.59 L (4.70-6.10) M/uL Hgb 9.3 L (14.0-18.0) g/dL Hct 28.0 L (42.0-52.0) % Plt Count 130 (130-400) K/uL Neut # (Auto) 0.86 L* (1.40-6.50) K/uL Lymph # (Auto) 0.28 L (1.20-3.40) K/uL [place] # (Auto) 0.84 H (0.11-0.59) K/uL Eos # (Auto) 0.10 (0.00-0.50) K/uL Baso # (Auto) 0.01 (0.00-0.20) K/uL Comprehensive Metabolic Panel 07/30/25 Range/Units 05:31 Sodium 138 (136-145) mmol/L Potassium 4.6 (3.5-5.1) mmol/L Chloride 107 (98-107) mmol/L Carbon Dioxide 25 (21-32) mmol/L BUN 30 H (6-23) mg/dl Creatinine 1.15 (0.6-1.4) mg/dl Glucose 140 H (70-99(Fasting)) mg/dl Calcium 8.2 L (8.6-10.3) mg/dl Intake and Output 07/29/25 07/30/25 07/30/25 22:59 06:59 14:59 Intake Total 700 / 1358.457 50 / 1358.457 Output Total 100 / 525 125 / 525 Balance 600 / 833.457 -75 / 833.457 Intake: Oral 700 / 750 50 / 750 Output: Urine 100 / 525 125 / 525 Other: Weight 86.7 kg Weight Measurement Method Built in [facility] Telemetry: Diagnostic Findings Telemetry: Atrial fibrillation with occasional ventricular pacing, short paroxysms of atrial fibrillation with aberrant conduction versus nonsustained ventricular tachycardia, asymptomatic. PG Care Time/CCT Total # of Minutes Spent Total Time Spent with Patient: Total time spent is greater than 50% in coordination of care (as documented) at patient's floor/unit and/or counseling patient: Coding Level of Care Code 62980 SUB INP/OBS CARE 2/35MIN Diagnoses Immunocompromised state due to drug therapy D84.821 Fever R50.9 Fever type: unspecified Anemia D64.9 Neutropenic fever D70.9; R50.81 Primary cancer of esophagus with metastasis to other site C15.9 Persistent atrial fibrillation I48.19 Hypoalbuminemia E88.09 Diastolic congestive heart failure I50.30 Fluid retention R60.9 (2) Fever Fever type: unspecified Qualified Code(s): R50.9 - Fever, unspecified
[2025-07-30] MEDS: FILGRASTIM 480 MCG/1.6 ML VIAL SC ONE (14:44)
--- NOTE | 2025-07-30 15:14 | Electrocardiogram Report ---
Test Reason : Blood Pressure : */* mmHG Vent. Rate : 72 BPM Atrial Rate : * BPM P-R Int : * ms QRS Dur : 148 ms QT Int : 420 ms P-R-T Axes : * -47 247 degrees QTcB Int : 459 ms Atrial fibrillation with frequent ventricular-paced complexes and with premature ventricular or aberr antly conducted complexes Right bundle branch block Left anterior fascicular block Bifascicular block T wave abnormality, consider inferolateral ischemia Abnormal ECG When compared with ECG of 28-Jul-2025 16:15, Vent. rate has decreased by 13 bpm Confirmed by Robert Merino ([id number]) on 07/30/2025 3:14:28 PM Referred By: REFERRED SELF Confirmed By: Robert Merino
--- NOTE | 2025-07-30 15:17 | Electrocardiogram Report ---
Test Reason : Blood Pressure : */* mmHG Vent. Rate : 112 BPM Atrial Rate : 308 BPM P-R Int : * ms QRS Dur : 146 ms QT Int : 376 ms P-R-T Axes : * -76 244 degrees QTcB Int : 513 ms Atrial fibrillation with rapid ventricular response Right bundle branch block Left anterior fascicular block Bifascicular block T wave abnormality, consider inferolateral ischemia Abnormal ECG When compared with ECG of 10-Jul-2017 11:13, Left anterior fascicular block is now Present T wave inversion now evident in Inferior leads T wave inversion now evident in Lateral leads Confirmed by Robert Merino ([id number]) on 07/30/2025 3:16:49 PM Referred By: REFERRED SELF Confirmed By: Robert Merino
--- NOTE | 2025-07-30 15:21 | Electrocardiogram Report ---
Test Reason : Blood Pressure : */* mmHG Vent. Rate : 88 BPM Atrial Rate : * BPM P-R Int : * ms QRS Dur : 140 ms QT Int : 382 ms P-R-T Axes : * -59 -42 degrees QTcB Int : 462 ms Atrial fibrillation with premature ventricular or aberrantly conducted complexes Right bundle branch block Left anterior fascicular block Bifascicular block Abnormal ECG When compared with ECG of 28-Jul-2025 19:56, (unconfirmed) Atrial fibrillation has replaced Electronic ventricular pacemaker Confirmed by Robert Merino ([id number]) on 07/30/2025 3:21:12 PM Referred By: REFERRED SELF Confirmed By: Robert Merino
--- NOTE | 2025-07-30 17:06 | Hospitalist Progress Note ---
Date of Service July 30, 2025 Assessment & Plan (1) Neutropenic fever: (2) Septic shock: (3) Immunocompromised state due to drug therapy: (4) Primary cancer of esophagus with metastasis to other site: (5) Diabetes mellitus type 2, controlled, with complications: (6) Paroxysmal atrial fibrillation: (7) Hypothyroidism: (8) Pulmonary hypertension: (9) Warfarin anticoagulation: (10) Neuroendocrine cancer: Plan Patient 84-year-old gentleman with neutropenic fever and progressive hypotension concern for impending septic shock. Patient is critically ill requires hospital level care and intervention possibly specialty consultation. Septic shock Neutropenic fever Immunocompromise state Pneumonia --CXR: No significant interval change. Right greater than left basilar airspace opacities and small pleural effusions are similar to the prior study. Cardio megaly. Enlarged central pulmonary arteries, which can be seen with pulmonary arterial hypertension. --Nasal MRSA Negative --Biofire Negative --Blood Cultures: Negative to date -Normal cortisol level Pressors discontinued Appreciate cloth stretcher help Empirically on vancomycin, Levaquin transition>> transition to Levaquin alone Received IV fluids Monitor volume status closely Appreciate oncology input. Received Neupogen per oncology today Monitor CBC/neutrophil count A-fib RVR -Normal TSH Continue metoprolol succinate 25 mg twice daily Continue Coumadin for anticoagulation Monitor INR 2.0 today Adjust Coumadin as needed Monitor and replete electrolytes as needed Acute on chronic diastolic heart failure Pulmonary hypertension CT showed bilateral pleural effusion Elevated BNP No aggressive diuretics given septic shock Monitor I's and O's, daily weight Continue torsemide 10 mg daily Appreciate cardiology input Will repeat chest x-ray tomorrow Chemotherapy-induced pancytopenia Monitor CBC No bleeding issues currently 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 Also immunotherapy Oncology consulted DM II HbA1c 7.9 Hold metformin Continue insulin while hospitalized Monitor blood glucose levels Hypothyroidism Continue levothyroxine Other chronic conditions Gout Hyperlipidemia Continue home medications DVT Px: Warfarin CODE STATUS Full code Disposition PT OT prior to discharge Admission and Anticipated Discharge Date Admission Date: July 28, 2025 Subjective Patient is seen and examined at bedside Reports poor sleep overnight Eager to get discharged Volume status improving Discussed with patient's family at bedside No specific complaints Denies any chest pain, dyspnea, nausea, vomiting, abdominal pain Review of Systems Review of Systems: All systems reviewed & are unremarkable except as noted in Subjective Physical Exam Physical Exam: Physical Exam: Vitals signs as noted above General Appearance:Moderately built and nourished, no apparent distress Head: normocephalic, Atraumatic Eyes: normal inspection, EOMI Neck: supple, Trachea midline Respiratory/Chest: Decreased breath sounds at bases, No accessory muscle use Cardiovascular: Irregularly irregular, No murmur Abdomen/GI:Soft, Non tender, Bowel sounds present Extremities/Musculoskeletal:normal inspection, 1-2+ B/L LE edema Neurologic/Psych:AAOX3, grossly no focal neurological deficits Skin: normal color, warm Results & Data Results & Data Vital Signs (Past 12 Hours) Vital Signs Temp Pulse Pulse Resp BP Pulse Ox O2 Del Method 07/30/25 16:27 37.1 C 66 18 118/73 97 Room Air 07/30/25 11:52 37.1 C 82 19 113/74 97 Room Air 07/30/25 08:24 37.0 C 90 18 115/75 95 Room Air 07/30/25 07:15 93 H Laboratory Results Short CBC 07/30/25 Range/Units 05:31 WBC 2.12 L (4.8-10.8) K/ul Hgb 9.3 L (14.0-18.0) g/dL Hct 28.0 L (42.0-52.0) % Plt Count 130 (130-400) K/uL BMP 07/30/25 05:31 Sodium 138 Potassium 4.6 Chloride 107 Carbon Dioxide 25 BUN 30 H Creatinine 1.15 Glucose 140 H Calcium 8.2 L
[2025-07-31 06:41] LABS: Anion Gap 7.0 (3-11); Blood Urea Nitrogen 31.0 mg/dl (6-23); Calcium 8.4 mg/dl (8.6-10.3); Carbon Dioxide 25.0 mmol/L (21-32); Chloride 107.0 mmol/L (98-107); Creatinine Clr Calc Pharmacy 41.7 ml/min; Glucose 115.0 mg/dl (70-99(Fasting)); Magnesium 1.8 mg/dl (1.7-2.4); Potassium 4.3 mmol/L (3.5-5.1); Sodium 139.0 mmol/L (136-145)
[2025-07-31 06:56] LABS: INR 2.1 (0.9-1.1); Prothrombin Time 21.2 Seconds (9.0-12.0)
[2025-07-31 07:16] LABS: Hematocrit (blood only) 29.4 % (42.0-52.0); Hemoglobin 9.5 g/dL (14.0-18.0); Mean Corpuscular Hemoglobin 34.8 pg (25.0-34.0); Mean Corpuscular Volume 107.7 fL (80.0-100.0); Platelet Count 140 K/uL (130-400); RDW Standard Deviation 69.5 fL (36.4-46.3); Red Blood Count 2.73 M/uL (4.70-6.10); White Blood Count 8.10 K/ul (4.8-10.8)
[2025-07-31 07:21] LABS: Dohle Bodies 2+; Immature Granulocytes # (auto) 0.05 K/uL (0.01-0.20); Immature Granulocytes % (auto) 0.6 %; Toxic Vacuolation 2+
--- NOTE | 2025-07-31 07:58 | XRay Report ---
EXAM: XR chest 1V portable CLINICAL HISTORY: CHF TECHNIQUE: An X-ray image of the chest is obtained in AP projection. COMPARISON: Comparison is made with prior CR dated 07/28/[address] chest dated 07/28/2025 was also reviewed. FINDINGS: Redemonstration of right chest mediport with catheter tip at the superior cavoatrial junction(stable). Dual lead pacemaker is seen on left side with leads in place. Multiple EKG leads are seen superimposed on the chest. Pulmonary Parenchyma: Slight interval reduction is noticed in the obscuration of right costophrenic angle, possibly suggesting slight interval improvement in ipsilateral pleural effusion; however, with unchanged ill-defined haziness detected in the right lower zone, signifying coexisting subsegmental atelectatic changes. Interval unchanged, obscuration of the left costophrenic angle identified, A few small, faint nodular opacities are also redemonstrated in the right lower zone and in the left apical region (as seen on concomitant CT scan). Heart and Mediastinum: Mild cardiomegaly (stable). Bony Thorax: No acute osseous abnormality is identified. Soft Tissues: Soft tissues overlying the chest wall appear unremarkable. IMPRESSION: 1. Redemonstration of right chest mediport with catheter tip at the superior cavoatrial junction(stable). 2. Dual lead pacemaker is seen on left side with leads in place. 3. Slight interval reduction identified in the right-sided pleural effusion; however, with unchanged ill-defined haziness seen in the right lower zone, signifying subsegmental atelectatic changes. 4. Unchanged left-sided pleural effusion. 5. Redemonstration of mild cardiomegaly along with suspected developing pulmonary arterial hypertension as described above(unchanged). 6. Redemonstration of few small, faint nodular opacities in the right lower zone as well as the left apical region. Require close follow-up. Electronically signed by Torsten Ornelas 07-31-2025 07:58 AM
[2025-07-31 11:08] VITALS: BP 106/68; RESP 21; TEMP 98.4; O2SAT 99
--- NOTE | 2025-07-31 15:57 | Discharge Summary ---
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 Patient is critically ill requires hospital level care and intervention possibly specialty consultation. Septic shock Neutropenic fever Immunocompromise state Pneumonia --CXR: No significant interval change. Right greater than left basilar airspace opacities and small pleural effusions are similar to the prior study. Cardiomegaly. Enlarged central pulmonary arteries, which can be seen with pulmonary arterial hypertension. --Nasal MRSA Negative --Biofire Negative --Blood Cultures: Negative to date -Normal cortisol level Pressors discontinued Appreciate stone sandblaster help Empirically on vancomycin, Levaquin transition>> transition to Levaquin alone Received IV fluids Monitor volume status closely Appreciate oncology input. Received Neupogen per oncology today Monitor CBC/neutrophil count A-fib RVR -Normal TSH Continue metoprolol succinate 25 mg twice daily Continue Coumadin for anticoagulation Monitor INR 2.0 today Adjust Coumadin as needed Monitor and replete electrolytes as needed Acute on chronic diastolic heart failure Pulmonary hypertension CT showed bilateral pleural effusion Elevated BNP No aggressive diuretics given septic shock Monitor I's and O's, daily weight Continue torsemide 10 mg daily Appreciate cardiology input Will repeat chest x-ray tomorrow Chemotherapy-induced pancytopenia Monitor CBC No bleeding issues currently 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 Source considered to be lung in nature. Oncology consulted. Course complicated by fluid overload and afib with RVR, cardiology consulted. Improved significantly. On 07/31/2025 patient medically stable for discharge home. 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 Underwent his first chemo and immunotherapy treatments approximately 3 weeks ago. His most recent treatment was held due to thrombocytopenia. Otherwise he feels as though he has been tolerating his treatments. Was doing fairly well, however, woke up this morning with some significant nausea and had emesis at least twice. There was no blood in the emesis. He then was feeling weaker and his checked his temperature. Reportedly had a temperature of 102 at home. This prompted them to seek attention in the emergency room. In the emergency room his workup was significant for some neutropenia. No other definitive findings for infection. Respiratory viral panel was negative. The initial plan was potentially to discharge him home, however as he stay longer in the ED his blood pressure trended downward. When he initially presented to the emergency room he had a systolic blood pressure of 117. Most recently he has had systolic blood pressures in the upper 80s low 90s. With this finding there was concern that he was trending more towards sepsis and our service was immediately contacted. Time of my evaluation the patient's temperature had declined. He had not rece ived any antipyretics. at the bedside states that he did not take any Tylenol at home. He reports that he went to bed feeling his usual self. Woke up with this nausea and had the emesis episodes. He may have had a little bit of a dry cough over the past week but no purulent sputum. No problems with his bladder. Has had a little constipation over the last couple days. No swelling in his hands arms legs or feet. No rashes. No chest pain. No lightheadedness or dizziness. At the time of my evaluation the patient has yet to receive sepsis fluids or antibiotics. Discharge Exam Gen: A&O 3 NAD, cachexia noted HEENT: NCAT, EOMI, not icteric. External ears normal. No rhinorrhea. Moist mucous membranes. Neck: Supple, full range of motion, no observable masses, No meningeal sign. Lungs: No Respiratory distress. CV: RRR, no edema. Abdomen: Soft, nondistended, No rebound tenderness. MSK: No joint swelling, no redness. Skin: No rashes, petechiae, lesions. Normal color per patient. Neuro: Normal Gait, Grossly intact. Psych: Appropriate for situation. Updated Medication List Medication Instructions Recorded Confirmed Type octreotide,microspheres 30 mg 30 mg IM MONTHLY 12/19/24 07/28/25 History intramuscular susp, extended release terazosin 2 mg capsule 2 mg PO HS 12/19/24 07/28/25 History metformin 500 mg tablet,extended 500 mg PO BID 01/01/25 07/28/25 History release 24 hr atorvastatin 40 mg tablet (Lipitor) 40 mg PO HS 06/26/25 07/28/25 History calcium 600 mg (as carbonate)-vit 1 tab PO DAILY 06/26/25 07/28/25 History D3 20 mcg (800 unit) chewable tablet (Caltrate plus D) levothyroxine 50 mcg capsule 50 mcg PO DAILYBB 06/26/25 07/28/25 History torsemide 10 mg tablet 10 mg PO Q OTHER DAY 06/26/25 07/28/25 History warfarin 5 mg tablet 5 mg PO 6XWK 06/26/25 07/28/25 History cholecalciferol (vitamin D3) 25 25 mcg PO DAILY 07/01/25 07/28/25 History mcg (1,000 unit) tablet (Vitamin D3) allopurinol 100 mg tablet 200 mg PO QAM 07/28/25 07/28/25 History cyanocobalamin (vitamin B-12) 1,000 mcg PO WK 07/28/25 07/28/25 History 1,000 mcg tablet (Vitamin B-12) ipratropium bromide 21 mcg (0.03 2 spray intranasal QID PRN RHINITIS 07/28/25 07/28/25 History %) nasal spray metoprolol succinate 50 mg 25 mg PO BID 07/28/25 07/28/25 History tablet,extended release 24 hr tadalafil 5 mg tablet 5 mg PO DAILY 07/28/25 07/28/25 History warfarin 5 mg tablet 7.5 mg PO WK 07/28/25 07/28/25 History levofloxacin 500 mg tablet 500 mg PO DAILY 4 days #4 tabs 07/31/25 Rx ondansetron 4 mg disintegrating 4 mg PO Q8H PRN nausea and 07/31/25 Rx tablet vomiting 5 days #14 tabs Hospital Stay Data Consultations 07/28/25 18:55 ED Decision to Admit Stat 07/28/25 19:33 Consult Oncology Routine 07/28/25 20:40 Consult Calender Roll Operator Routine 07/29/25 10:58 Consult Cardiology Routine Diagnostic Imagining Performed 07/28/25 19:22 CT chest diagnostic wo con Routine Pending Results Patient Have Any Pending Studies at Discharge: No Discharge Instructions Given to Patient (Per Discharging Provider) Diagnosis: Sepsis 2/2 CAP, Neutropenic Fever, Atrial Fibrillation with RVR, Acute on Chronic Diastolic HF Incidental Findings: thoracic spondylosis, cardiomegaly Follow Ups: PCP, cardiology, oncology 1. Please follow up with PCP, cardiology, oncology. 2. Finish course of abx as prescribed. 3. Please be cautious in regards to infections. Total Time Total Time Spent Total Time Spent (In Minutes): I spent a total of 35 minutes in direct patient care, including [id number] time with the patient and/or family, reviewing medical records, ordering and reviewing diagnostic tests, and coordinating care with other healthcare providers. This time includes: history taking, physical examination, medical decision making, counseling, ECG interpretation, imaging interpretation, lab interpretation, orders, and education, excluding time spent in the performance of separately billed services.
[2025-07-31 18:08] VITALS: PULSE 76
== END 2025-07-31 14:55 | disposition home or self-care (01) | DRG 871 ==
LOC: ED 13:26 → 1E 19:22 → SUATTDRO 19:22 → 1E 20:10 → 4W 07-29 12:41